=== PATIENT | male | born 1985 | race Caucasian/White ===

== ENCOUNTER 2021-12-12 07:20 | Emergency (ER) | payer MEDICARE, MEDICAID, SELFPAY ==
[2021-12-12 07:40] VITALS: BP 101/63; PULSE 68; RESP 18; TEMP 36.6; O2SAT 98; BMI 19.2
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
--- NOTE | 2021-12-12 09:53 | PC.NURSE ---
nurse to nurse report called to [facility] to notify of pt's return back to facility.
== END 2021-12-12 09:49 | disposition skilled nursing facility (03) ==
PROVIDERS: Emergency Provider Emergency Medicine Emergency Medical Services; PCP Hospitalist
DX: T76.21XA Adult sexual abuse, suspected, initial encounter (principal); Z87.820 Personal history of traumatic brain injury; F25.9 Schizoaffective disorder, unspecified; F03.90 Unspecified dementia, unspecified severity, without behavioral disturbance, psychotic disturbance, mood disturbance, and anxiety
CPT/HCPCS: 99284

== ENCOUNTER 2024-01-23 19:57 | Inpatient (IN) | payer MEDICARE, MEDICAID, SELFPAY ==
--- NOTE | ~2024-01-23 | CT_ITS ---
EXAMINATION: CT HEAD WITHOUT CONTRAST CLINICAL INFORMATION: New onset seizure COMPARISON: None available. TECHNIQUE: Contiguous axial imaging was performed from the skull base to vertex without intravenous administration of contrast. This CT examination was performed using dose optimization techniques as appropriate, variously including the following: *Automated exposure control *Adjustment of mA and/or kV according to patient size (this includes techniques or standardized protocols for targeted exams where dose is matched to indication/reason for exam; i.e. extremities or head) *Use of iterative reconstruction technique DLP: 688 mGy-cm FINDINGS: There is no acute intra-axial, extra-axial bleed, masses or midline shift. There is no acute infarction in evolution. There is no edema. The lateral ventricles are symmetrical in size and configuration without enlargement. Bone windows reveal no calvarial abnormality. There is no scalp soft tissue abnormality. CT/CT head/brain wo IV con IMPRESSION: No acute intracranial process seen.
[2024-01-23 20:08] VITALS: BP 121/69; PULSE 76; O2SAT 94
[2024-01-23 20:14] VITALS: PULSE 61; RESP 16; TEMP 36.6; O2SAT 98; BMI 20.2
--- NOTE | 2024-01-23 20:18 | ECG_ITS ---
Test Reason : SEIZURE Blood Pressure : / mmHG Vent. Rate : 064 BPM Atrial Rate : 064 BPM P-R Int : 164 ms QRS Dur : 102 ms QT Int : 444 ms P-R-T Axes : 021 080 058 degrees QTc Int : 458 ms Normal sinus rhythm Normal ECG No previous ECGs available Referred By: Generic ED Physician Electronically Signed By:BISMARK DEE
--- NOTE | 2024-01-23 21:01 | MHC.EDTECH ---
Patient BIBA,changed into hospital attire,rounds and vitals completed,patient placed on the ase master mechanic,EKG taken per order and sighed by provide. Patient was icont, of a large amount of urine,rocio-care given,[place] cath placed.pt tolerated well. Patient vomited a copious amount of vomit all over self and floor, patient also vomited in bag, 50MLS, Patient was cleaned linen and bed changed RN at bedside with this tech.Labs were drawn and sent to lab.
--- NOTE | 2024-01-23 21:05 | PC.NURSE ---
Patient vomited copious amounts of orangey/food particle vomit. Complete bed change, patient answers yes/no questions appropriately, states he is still nauseous.
[2024-01-23 21:07] LABS: Ammonia 41 umol/L (13-55)
[2024-01-23 21:28] LABS: Troponin-I High Sensitivity < 2.7 ng/L (<3.5-35.0)
[2024-01-23 21:29] LABS: Basophils Percent Auto 0.4 % (0-2); Eosinophils Absolute Auto 0.1 X10*3/uL (0.0-0.4); Eosinophils Percent Auto 2.6 % (0-4); Hematocrit 31.4 % (42.0-52.0); Imm Gran Abs Auto 0.04 X10*3/uL (0.00-0.03); Imm Gran Pct Auto 0.8 % (0.0-0.4); Lymphocytes Absolute Auto 1.6 X10*3/uL (1.2-4.9); Lymphocytes Percent Auto 33.3 % (20-40); MANUAL DIFF FLAG SCAN; Mean Corpuscular Volume 81.3 fL (80.0-98.0); Mean Platelet Volume 10.7 fL (9.4-12.4); Monocytes Absolute Auto 0.3 X10*3/uL (0.1-1.2); Monocytes Percent Auto 5.9 % (2-11); Neutrophils Absolute Auto 2.8 x10*3/uL (2.0-8.3); Platelet Count 146 X10*3/uL (160-400); Red Blood Count 3.86 X10*6/uL (4.60-5.80); Red Cell Distribution Width 12.2 % (11.0-16.0); SCAN SMEAR FLAG 1; White Blood Count 4.9 X10*3/uL (4.8-10.8)
[2024-01-23 21:35] LABS: Potassium 2.8 mmol/L (3.3-5.1)
[2024-01-23 21:36] LABS: Alanine Aminotransferase 37 U/L (0-40); Alkaline Phosphatase 53 U/L (39-117); Anion Gap 14 (12-20); Aspartate Amino Transferase 23 U/L (5-37); Bilirubin Total 0.9 mg/dL (0.0-1.0); Blood Urea Nitrogen 4 mg/dL (9-16); Calcium 8.1 mg/dL (8.4-10.2); Carbon Dioxide 20 mmol/L (22-29); Chloride 84 mmol/L (96-108); Creatinine Clr Calc Pharmacy 142.8; Estimated Glomerular Filt Rate > 60; Glucose Random 135 mg/dL (60-115); Magnesium 1.5 mg/dL (1.6-2.6); Sodium 115 mmol/L (135-145)
--- NOTE | 2024-01-23 21:41 | ED_ITS ---
HPI - Seizure General Chief Complaint: Seizure Stated Complaint: WITNESSED SEIZURE, NO SZ HISTORY Time Seen by Provider: 01/23/24 20:59 Source: EMS and RN notes reviewed Mode of arrival: EMS Limitations: altered mental status History of Present Illness ED Provider: sanchez MENA Narrative: Patient is 38 years old with history of schizophrenia history of hyponatremia comes here for new onset of seizure lasted for 3-5 minutes prior to arrival, do not have any old sodium levels available in the past but patient is supposed to take sodium chloride 1 g tablets 3 times a day no history of seizures in the past no head injury/fall had a superficial tongue bite Seizure History: No Place: Home Related Data Allergies Allergy/AdvReac Type Severity Reaction Status Date / Time haloperidol [Haldol] Allergy Unknown Unknown Verified 01/23/24 20:17 Benadryl Allergy Unknown Unknown Uncoded 01/23/24 20:17 Review of Systems 2 Review of Systems: Yes Unobtainable due to mental status PMFSH Past Medical History Medical History Allergic rhinitis, unspecified Polydipsia Benign prostatic hyperplasia with lower urinary tract symptoms Unspecified urinary incontinence Mild cognitive impairment Cocaine abuse Alcohol dependence, in remission Altered mental status, unspecified Cannabis abuse with intoxication, uncomplicated Myopia of both eyes Anxiety Dementia Schizo affective schizophrenia Social History Social History Household Members: Other Household Members Other:: facility- other patients Housing: Skilled Nursing Do you presently have visiting nurse or other home services: Yes (lives at [facility]) Patient Tobacco Use Status: Never used Tobacco Smoked in Last 30 Days: No Use of substances other than those prescribed or required for medical reasons: Unknown Advance Directives: Yes Advance Directives Information Provided: No Advance Directives on File: No Advance Directives Date on File: 01/23/24 Do you have a plan to hurt others: No Plan Recently lost weight without trying: Unsure Nutrition Risks: No Nutritional Risk Poor oral hygiene: No Physical Exam 2 Vital Signs: Vital Signs: Last Vital Signs Temp 97.1 F 01/24/24 01:00 Pulse 59 01/24/24 01:00 Resp 13 01/24/24 01:00 BP 90/55 L 01/24/24 01:00 Pulse Ox 98 01/24/24 01:00 O2 Del Method Room Air 01/24/24 01:00 BMI result Body Mass Index 20.2 Appearance: Alert. And awake postictal No acute distress. Eyes: PERRLA, No Nystagmus ENT: Pharynx normal. Oral Mucosa moist superficial tongue bite at the tip of the tongue no active bleed Neck: Normal inspection. Neck supple. CVS: Normal heart rate and rhythm. Pulses normal. Respiratory: No respiratory distress. Equal air entry bilateral, no wheezing/rales/rhonchi Abdomen: Soft and nontender. Bowel sounds are present, no mass palpable, no CVA tenderness Skin: Skin warm and dry. Normal skin color. Normal skin turgor. Extremities: No lower extremity edema. No calf tenderness Neuro: Alert and awake postictal. No motor deficit. No sensory deficit.No cerebellar signs , cranial nerves II-XII intact Medications Administered Generic Name Dose Route Start Last Admin Trade Name Freq PRN Reason Stop Dose Admin Enoxaparin Sodium 40 mg 01/23/24 23:00 01/23/24 23:02 Enoxaparin Sodium 40 Mg/0.4 Ml Syringe SUBCUT 40 mg Q24H SARINA Administration Potassium Chloride 10 meq in 100 mls @ 100 mls/hr 01/23/24 21:45 01/24/24 00:38 Potassium Chloride/H20 IV 01/24/24 01:44 Infused Q1H SARINA Infusion Discontinued Medications Generic Name Dose Route Start Last Admin Trade Name Freq PRN Reason Stop Dose Admin Magnesium Sulfate 2 gm in 50 mls @ 150 mls/hr 01/23/24 21:45 01/23/24 22:17 Magnesium Sulfate/H2o IV 01/23/24 22:04 Infused ONCE ONE Infusion Sodium Chloride 100 mls @ 100 mls/hr 01/23/24 22:00 01/24/24 00:38 Sodium Chloride 3 % IV 01/23/24 22:59 Infused ONCE ONE Infusion Medical Decision Making Medical Decision Making [facility] Narrative: Patient has significant hyponatremia hypokalemia and hypomagnesemia hyponatremia likely the cause of the seizure 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 Cuco verduzco advised to start hypertonic saline 3% at 10 mL/hour with slow rise in sodium levels with fluid restrictions will admit to ICU Differential Diagnosis Differential Diagnoses: The differential diagnosis associated with the presentation includes Metabolic etiology/benign seizures /intracranial mass Admission/Observation Consideration of admission/observation: Escalation of care including admission/observation considered Consult Healthcare Provider Management of the patient was discussed with: Supervisor [employer] Lab Data MDM Lab Attestation statement: I reviewed the patient's lab results. 01/23/24 20:45 01/23/24 20:45 Labs: Lab Results 01/23/24 01/23/24 Range/Units 20:45 22:14 WBC 4.9 (4.8-10.8) X10*3/uL RBC 3.86 L (4.60-5.80) X10*6/uL Hgb 10.5 L (14.0-18.0) g/dl Hct 31.4 L (42.0-52.0) % MCV 81.3 (80.0-98.0) fL MCH 27.2 (27.0-33.0) pg MCHC 33.4 (31.0-36.0) g/dl RDW 12.2 (11.0-16.0) % Plt Count 146 L (160-400) X10*3/uL MPV 10.7 (9.4-12.4) fL Immature Gran % (Auto) 0.8 H (0.0-0.4) % Neut % (Auto) 57.0 (45-73) % Lymph % (Auto) 33.3 (20-40) % [place] % (Auto) 5.9 (2-11) % Eos % (Auto) 2.6 (0-4) % Baso % (Auto) 0.4 (0-2) % Lymph # (Auto) 1.6 (1.2-4.9) X10*3/uL [place] # (Auto) 0.3 (0.1-1.2) X10*3/uL Eos # (Auto) 0.1 (0.0-0.4) X10*3/uL Baso # (Auto) 0.0 (0.0-0.2) X10*3/uL Abs Immat Gran (auto) 0.04 H (0.00-0.03) X10*3/uL Absolute Neuts (auto) 2.8 (2.0-8.3) x10*3/uL Absolute Nucleated RBC 0.000 (0.0-0.012) X10*3/uL Nucleated RBC % (auto) 0.0 (0.0-0.2) /100WBC Smear Tech's Comments VERIFIED Sodium 115 L* (135-145) mmol/L Potassium 2.8 L* (3.3-5.1) mmol/L Chloride 84 L (96-108) mmol/L Carbon Dioxide 20 L (22-29) mmol/L Anion Gap 14 (12-20) BUN 4 L (9-16) mg/dL Creatinine 0.61 (0.5-1.4) mg/dL Estim Creat Clear Calc 142.8 Estimated GFR > 60 Random Glucose 135 H (60-115) mg/dL Osmolality 236 L (281-305) mosm/kg Calcium 8.1 L (8.4-10.2) mg/dL Magnesium 1.5 L (1.6-2.6) mg/dL Total Bilirubin 0.9 (0.0-1.0) mg/dL AST 23 (5-37) U/L ALT 37 (0-40) U/L Alkaline Phosphatase 53 (39-117) U/L Ammonia 41 (13-55) umol/L Troponin I High Sens < 2.7 (<3.5-35.0) ng/L Total Protein 6.0 L (6.5-8.0) g/dL Albumin 4.0 (3.5-5.0) g/dL Independent Interpretation I performed an independent interpretation of an: EKG and Plain X-Ray Interpretation: Normal sinus rhythm heart rate 64 beats per minute normal intervals normal axis no acute ST T wave changes no acute ischemia Radiology Impression Discussion of test interpretation with radiology: I have reviewed the radiologist's reading. Radiologist Impression: CT/CT head/brain wo IV con IMPRESSION: No acute intracranial process seen. Discharge Plan Discharge Clinical Impression: New onset seizure, Acute hyponatremia Patient Disposition: Admitted As Inpatient
[2024-01-23 21:47] VITALS: BP 113/81; PULSE 63; RESP 19; TEMP 36.6; O2SAT 100
--- NOTE | 2024-01-23 21:47 | MHC.EDTECH ---
Hourly rounds and vitals completed,patient is icont. at baseline,[place] Cath.placed,waiting for urine sample at this time.
[2024-01-23 21:56] LABS: Hemoglobin 10.5 g/dl (14.0-18.0)
[2024-01-23 21:57] LABS: Mean Corpuscular HGB Conc 33.4 g/dl (31.0-36.0); Mean Corpuscular Hemoglobin 27.2 pg (27.0-33.0)
[2024-01-23] MEDS: Magnesium Sulfate/H2O 2 GM/50 ML PIGGYBACK IV (21:57)
[2024-01-23 21:59] LABS: SLIDE REVIEW VERIFIED
[2024-01-23] MEDS: Potassium Chloride/H20 10 MEQ/100 ML PIGGYBACK 100 MEQ IV ×2 (22:03→23:02)
[2024-01-23 22:11] VITALS: BP 102/67; PULSE 68; RESP 17; O2SAT 100
[2024-01-23] MEDS: Sodium Chloride 3 % 100 ML 10 ML IV (22:15)
--- NOTE | 2024-01-23 22:29 | PC.NURSE ---
ICU provider to bedside, eval patient, requesting to have patient sent over as soon as possible, called RN to RN report, spoke to Ty, all questions answered. Ty to confirm with ICU provider if any additional scans are wanted before patient is brought over.
--- NOTE | 2024-01-23 22:30 | MHC.EDTECH ---
Belongings list completed copy placed in chart
[2024-01-23 22:34] VITALS: BP 112/65; PULSE 73; RESP 18; TEMP 36.5; O2SAT 100
[2024-01-23 22:36] LABS: Osmolality, Serum 236 mosm/kg (281-305)
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
[2024-01-23 22:50] VITALS: BMI 20.3
[2024-01-23] MEDS: Enoxaparin Sodium 40 MG/0.4 ML SYRINGE SUBCUT (23:02)
[2024-01-24] VITALS (24 sets, daily range): BP systolic 89–115; BP diastolic 53–71; PULSE 54–77; RESP 11–20; TEMP 35.8–37.1; O2SAT 94–99
[2024-01-24 01:28] LABS: Appearance Urine Clear; Color Urine Yellow; Glucose Urine UA Negative (Negative); Leukocyte Esterase Urine Negative (Negative); Nitrite Urine Negative (Negative); Specific Gravity - Urine <= 1.005 (1.005-1.025); Urine Blood Negative (Negative); Urine Ketones Negative (Negative); Urine Protein Negative (Neg-Trace)
[2024-01-24] MEDS: Potassium Chloride/H20 10 MEQ/100 ML PIGGYBACK 100 MEQ IV ×2 (01:30→02:33)
[2024-01-24 01:43] LABS: Osmolality Urine 91 mosm/kg (373-1093)
[2024-01-24 02:17] LABS: Glucose, Whole Blood 100 mg/dL (60-115)
[2024-01-24 02:25] LABS: Basophils Percent Auto 0.2 % (0-2); Eosinophils Absolute Auto 0.1 X10*3/uL (0.0-0.4); Eosinophils Percent Auto 0.5 % (0-4); Imm Gran Abs Auto 0.03 X10*3/uL (0.00-0.03); Imm Gran Pct Auto 0.3 % (0.0-0.4); Lymphocytes Absolute Auto 1.6 X10*3/uL (1.2-4.9); MANUAL DIFF FLAG SCAN; Mean Corpuscular Volume 81.3 fL (80.0-98.0); Monocytes Absolute Auto 0.4 X10*3/uL (0.1-1.2); Monocytes Percent Auto 4.5 % (2-11); Neutrophils Absolute Auto 7.6 x10*3/uL (2.0-8.3); Neutrophils Percent Auto 78.5 % (45-73); Platelet Count 197 X10*3/uL (160-400); Red Blood Count 4.55 X10*6/uL (4.60-5.80); Red Cell Distribution Width 12.3 % (11.0-16.0); SCAN SMEAR FLAG 1; White Blood Count 9.7 X10*3/uL (4.8-10.8)
[2024-01-24 02:43] LABS: Anion Gap 13 (12-20); Blood Urea Nitrogen 3 mg/dL (9-16); Calcium 8.9 mg/dL (8.4-10.2); Carbon Dioxide 24 mmol/L (22-29); Chloride 97 mmol/L (96-108); Creatinine Clr Calc Pharmacy 145.8; Estimated Glomerular Filt Rate > 60; Glucose Random 90 mg/dL (60-115); Magnesium 2.2 mg/dL (1.6-2.6); Phosphorus 3.1 mg/dL (2.7-4.5); Potassium 3.9 mmol/L (3.3-5.1); Sodium 130 mmol/L (135-145)
[2024-01-24] MEDS: Dextrose 5 % 1,000 ML 100 ML IVCONT (03:00)
[2024-01-24 03:15] LABS: Hemoglobin 12.4 g/dl (14.0-18.0)
[2024-01-24 03:16] LABS: Mean Corpuscular HGB Conc 33.5 g/dl (31.0-36.0); Mean Corpuscular Hemoglobin 27.3 pg (27.0-33.0)
--- NOTE | 2024-01-24 04:58 | PC.NURSE ---
Addendum entered by Ty Narayanan RN 01/24/24 07:02: After swain insertion, urine output approx. 400 mL/hr, clear dilute urine. DISCHARGE COORDINATOR Ulises notified, DDAVP 2 mcg IVP given per MAR. IV fluids titrated per MAR, labs rechecked per EMR. Neurologically unchanged. Original Note: Patient admitted to ICU from ED at approx. 2245. Upon initial assessment, patient alert but drowsy, arousable to name. Able to follow simple commands, answer yes/no to questions, MORIN spontaneously. SR/SB on tele, SBP over 90, MAP over 65. Saturating well on RA. 3% saline infused per MAR, DISCHARGE COORDINATOR aware repeat Na+ results. D5W IV started, see MAR. Neuro assessment remains unchanged. Patient had large incontinent episode, est. 1L of clear urine. Swain catheter inserted per order. Full bed bath given, complete bed change, skin overall intact warm and dry. Seizure precautions in place, bed locked in lowest position, bed alarm on.
[2024-01-24 05:48] LABS: VBG HCO3 26 mmol/L (22-26); VBG pCO2 36 mmHg; VBG pH 7.47 (7.32-7.43); VBG pO2 80 mmHg
[2024-01-24 05:58] LABS: Venous Blood Gas Refer to POC result
[2024-01-24 06:06] LABS: Alanine Aminotransferase 37 U/L (0-40); Alkaline Phosphatase 59 U/L (39-117); Anion Gap 9 (12-20); Aspartate Amino Transferase 25 U/L (5-37); Bilirubin Total 0.9 mg/dL (0.0-1.0); Blood Urea Nitrogen 3 mg/dL (9-16); Calcium 8.6 mg/dL (8.4-10.2); Carbon Dioxide 25 mmol/L (22-29); Chloride 105 mmol/L (96-108); Creatinine Clr Calc Pharmacy 159.1; Estimated Glomerular Filt Rate > 60; Glucose Random 124 mg/dL (60-115); Magnesium 2.1 mg/dL (1.6-2.6); Phosphorus 2.6 mg/dL (2.7-4.5); Potassium 3.7 mmol/L (3.3-5.1); Sodium 135 mmol/L (135-145); Total Protein 6.2 g/dL (6.5-8.0)
[2024-01-24 06:21] LABS: Thyroid Stimulating Hormone 1.41 uIU/mL (0.32-4.0)
[2024-01-24 06:39] LABS: T4 Thyroxine 7.8 ug/dL (4.5-12.0)
--- NOTE | 2024-01-24 08:24 | PHA.MEDREC ---
Pharmacy Consult ? Medication Reconciliation Pharmacy has completed the medication reconciliation. Utilized list from facility.
[2024-01-24 08:32] LABS: Anion Gap 10 (12-20); Blood Urea Nitrogen 3 mg/dL (9-16); Calcium 8.9 mg/dL (8.4-10.2); Carbon Dioxide 24 mmol/L (22-29); Chloride 102 mmol/L (96-108); Creatinine Clr Calc Pharmacy 145.8; Estimated Glomerular Filt Rate > 60; Glucose Random 154 mg/dL (60-115); Potassium 4.1 mmol/L (3.3-5.1); Sodium 132 mmol/L (135-145)
[2024-01-24] MEDS: 0.9 % Sodium Chloride Flush 3 ML SYRINGE IVFLUSH ×2 (08:32→16:17)
[2024-01-24] MEDS: Dextrose 5 % 1,000 ML 500 ML IVCONT ×2 (08:32→11:19)
--- NOTE | 2024-01-24 10:55 | MHC.CM.PN ---
IMM DELIVERED TO [facility] VIA TELEPHONE. WHITE COPY TO BE MAILED. 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 PT IS ALERT TO SELF ONLY, LETHARGIC. RETURN REFERRAL SENT TO [facility] WITH [facility] WITH REQUEST FOR COPY OF [facility]. DP: PLAN IS FOR PT TO RETURN TO [facility] ON DC. PT WILL NEED BLS TRANSPORT (WILL NEED [place] MEDICAID AUTH PRIOR TO TRANSPORT) CM WILL CONTINUE TO FOLLOW FOR ANY CHANGE TO DC NEEDS/PLAN.
[2024-01-24 11:18] LABS: Anion Gap 8 (12-20); Blood Urea Nitrogen 3 mg/dL (9-16); Carbon Dioxide 25 mmol/L (22-29); Chloride 99 mmol/L (96-108); Creatinine Clr Calc Pharmacy 165.1; Estimated Glomerular Filt Rate > 60; Glucose Random 139 mg/dL (60-115); Potassium 3.8 mmol/L (3.3-5.1); Sodium 128 mmol/L (135-145)
--- NOTE | 2024-01-24 12:15 | PM.CCPN ---
Subjective Subjective Date of Service: 01/24/24 Interval History: 38-year-old gentleman with underlying TBI with dementia, prior cocaine and alcohol abuse, schizophrenia/schizoaffective/bipolar disorders, polydipsia admitted on 01/23/2024 with new onset seizure and new hyponatremia of 115. Initially given 100 cc bolus of 3% saline with rapid rising sodium level up to 130, started on D5 W and desmopressin for polyuria with leveling off sodium level to 128. Mental status remains at baseline with patient is alert and oriented x2. Critical Care Time (minutes): 60 Physical Exam Vital Signs: Vital Signs: Last Vital Signs Temp 98.8 F 01/24/24 12:00 Pulse 64 01/24/24 12:00 Resp 15 01/24/24 12:00 BP 101/68 01/24/24 12:00 Pulse Ox 96 01/24/24 12:00 O2 Del Method Room Air 01/24/24 12:00 BMI result Body Mass Index 20.3 Const: General: no acute distress, alert and awake Eyes: Sclerae: sclerae normal EOM: EOMs intact bilaterally Neck: Neck: Yes no lymphadenopathy, Yes trachea midline and Yes supple Resp: Effort & Inspection: normal respiratory effort and no respiratory distress Auscultation: clear to auscultation bilaterally Cardio: Rate: regular rate Rhythm: regular rhythm Heart sounds: no gallops, no murmurs and no rubs GI: Palpation (GI): Soft to palpation and Other GI palpation findings present ( Nontender) Auscultation: normal bowel sounds Extrem: General: Yes no pedal edema, No clubbing and No cyanosis Objective Data Labs 01/24/24 02:17 01/24/24 10:48 Labs: Laboratory Results - last 24 hr 01/23/24 01/23/24 01/24/24 20:45 22:14 01:00 WBC 4.9 RBC 3.86 L Hgb 10.5 L Hct 31.4 L MCV 81.3 MCH 27.2 MCHC 33.4 RDW 12.2 Plt Count 146 L MPV 10.7 Immature Gran % (Auto) 0.8 H Neut % (Auto) 57.0 Lymph % (Auto) 33.3 [place] % (Auto) 5.9 Eos % (Auto) 2.6 Baso % (Auto) 0.4 Lymph # (Auto) 1.6 [place] # (Auto) 0.3 Eos # (Auto) 0.1 Baso # (Auto) 0.0 Abs Immat Gran (auto) 0.04 H Absolute Neuts (auto) 2.8 Absolute Nucleated RBC 0.000 Nucleated RBC % (auto) 0.0 Smear Tech's Comments VERIFIED VBG pH VBG pCO2 VBG pO2 VBG HCO3 VBG O2 Saturation VBG Base Excess Sodium 115 L* Potassium 2.8 L* Chloride 84 L Carbon Dioxide 20 L Anion Gap 14 BUN 4 L Creatinine 0.61 Estim Creat Clear Calc 142.8 Estimated GFR > 60 POC Glucose Random Glucose 135 H Osmolality 236 L Calcium 8.1 L Phosphorus Magnesium 1.5 L Total Bilirubin 0.9 AST 23 ALT 37 Alkaline Phosphatase 53 Ammonia 41 Troponin I High Sens < 2.7 Total Protein 6.0 L Albumin 4.0 TSH Thyroxine (T4) Urine Color Yellow Urine Appearance Clear Urine pH 7.0 Ur Specific [place] <= 1.005 Urine Protein Negative Urine Glucose (UA) Negative Urine Ketones Negative Urine Blood Negative Urine Nitrite Negative Ur Leukocyte Esterase Negative Urine Osmolality 91 L Ur Random Sodium 20.0 01/24/24 01/24/24 01/24/24 02:13 02:17 05:37 WBC 9.7 RBC 4.55 L Hgb 12.4 L Hct 37.0 L MCV 81.3 MCH 27.3 MCHC 33.5 RDW 12.3 Plt Count 197 D MPV 10.0 Immature Gran % (Auto) 0.3 Neut % (Auto) 78.5 H Lymph % (Auto) 16.0 L [place] % (Auto) 4.5 Eos % (Auto) 0.5 Baso % (Auto) 0.2 Lymph # (Auto) 1.6 [place] # (Auto) 0.4 Eos # (Auto) 0.1 Baso # (Auto) 0.0 Abs Immat Gran (auto) 0.03 Absolute Neuts (auto) 7.6 Absolute Nucleated RBC 0.000 Nucleated RBC % (auto) 0.0 Smear Tech's Comments VBG pH VBG pCO2 VBG pO2 VBG HCO3 VBG O2 Saturation VBG Base Excess Sodium 130 L 135 Potassium 3.9 D Chloride 97 Carbon Dioxide 24 Anion Gap 13 BUN 3 L Creatinine 0.60 Estim Creat Clear Calc 145.8 Estimated GFR > 60 POC Glucose 100 Random Glucose 90 Osmolality Calcium 8.9 D Phosphorus 3.1 Magnesium 2.2 Total Bilirubin AST ALT Alkaline Phosphatase Ammonia Troponin I High Sens Total Protein Albumin TSH Thyroxine (T4) Urine Color Urine Appearance Urine pH Ur Specific [place] Urine Protein Urine Glucose (UA) Urine Ketones Urine Blood Urine Nitrite Ur Leukocyte Esterase Urine Osmolality Ur Random Sodium 01/24/24 01/24/24 01/24/24 05:37 05:37 05:37 WBC RBC Hgb Hct MCV MCH MCHC RDW Plt Count MPV Immature Gran % (Auto) Neut % (Auto) Lymph % (Auto) [place] % (Auto) Eos % (Auto) Baso % (Auto) Lymph # (Auto) [place] # (Auto) Eos # (Auto) Baso # (Auto) Abs Immat Gran (auto) Absolute Neuts (auto) Absolute Nucleated RBC Nucleated RBC % (auto) Smear Tech's Comments VBG pH VBG pCO2 VBG pO2 VBG HCO3 VBG O2 Saturation VBG Base Excess Sodium Cancelled Potassium 3.7 Cancelled Chloride 105 Cancelled Carbon Dioxide 25 Anion Gap BUN Creatinine Estim Creat Clear Calc Estimated GFR POC Glucose Random Glucose Osmolality Calcium Phosphorus Magnesium Total Bilirubin AST ALT Alkaline Phosphatase Ammonia Troponin I High Sens Total Protein Albumin TSH Thyroxine (T4) Urine Color Urine Appearance Urine pH Ur Specific [place] Urine Protein Urine Glucose (UA) Urine Ketones Urine Blood Urine Nitrite Ur Leukocyte Esterase Urine Osmolality Ur Random Sodium 01/24/24 01/24/24 01/24/24 05:37 05:37 05:37 WBC RBC Hgb Hct MCV MCH MCHC RDW Plt Count MPV Immature Gran % (Auto) Neut % (Auto) Lymph % (Auto) [place] % (Auto) Eos % (Auto) Baso % (Auto) Lymph # (Auto) [place] # (Auto) Eos # (Auto) Baso # (Auto) Abs Immat Gran (auto) Absolute Neuts (auto) Absolute Nucleated RBC Nucleated RBC % (auto) Smear Tech's Comments VBG pH VBG pCO2 VBG pO2 VBG HCO3 VBG O2 Saturation VBG Base Excess Sodium Potassium Chloride Carbon Dioxide Cancelled Anion Gap 9 L Cancelled BUN 3 L Cancelled Creatinine 0.55 Estim Creat Clear Calc Estimated GFR POC Glucose Random Glucose Osmolality Calcium Phosphorus Magnesium Total Bilirubin AST ALT Alkaline Phosphatase Ammonia Troponin I High Sens Total Protein Albumin TSH Thyroxine (T4) Urine Color Urine Appearance Urine pH Ur Specific [place] Urine Protein Urine Glucose (UA) Urine Ketones Urine Blood Urine Nitrite Ur Leukocyte Esterase Urine Osmolality Ur Random Sodium 01/24/24 01/24/24 01/24/24 05:37 05:37 05:37 WBC RBC Hgb Hct MCV MCH MCHC RDW Plt Count MPV Immature Gran % (Auto) Neut % (Auto) Lymph % (Auto) [place] % (Auto) Eos % (Auto) Baso % (Auto) Lymph # (Auto) [place] # (Auto) Eos # (Auto) Baso # (Auto) Abs Immat Gran (auto) Absolute Neuts (auto) Absolute Nucleated RBC Nucleated RBC % (auto) Smear Tech's Comments VBG pH VBG pCO2 VBG pO2 VBG HCO3 VBG O2 Saturation VBG Base Excess Sodium Potassium Chloride Carbon Dioxide Anion Gap BUN Creatinine Cancelled Estim Creat Clear Calc 159.1 Cancelled Estimated GFR > 60 Cancelled POC Glucose Random Glucose 124 H Osmolality Calcium Phosphorus Magnesium Total Bilirubin AST ALT Alkaline Phosphatase Ammonia Troponin I High Sens Total Protein Albumin TSH Thyroxine (T4) Urine Color Urine Appearance Urine pH Ur Specific [place] Urine Protein Urine Glucose (UA) Urine Ketones Urine Blood Urine Nitrite Ur Leukocyte Esterase Urine Osmolality Ur Random Sodium 01/24/24 01/24/24 01/24/24 05:37 05:37 05:37 WBC RBC Hgb Hct MCV MCH MCHC RDW Plt Count MPV Immature Gran % (Auto) Neut % (Auto) Lymph % (Auto) [place] % (Auto) Eos % (Auto) Baso % (Auto) Lymph # (Auto) [place] # (Auto) Eos # (Auto) Baso # (Auto) Abs Immat Gran (auto) Absolute Neuts (auto) Absolute Nucleated RBC Nucleated RBC % (auto) Smear Tech's Comments VBG pH VBG pCO2 VBG pO2 VBG HCO3 VBG O2 Saturation VBG Base Excess Sodium Potassium Chloride Carbon Dioxide Anion Gap BUN Creatinine Estim Creat Clear Calc Estimated GFR POC Glucose Random Glucose Cancelled Osmolality Calcium 8.6 Cancelled Phosphorus 2.6 L Cancelled Magnesium 2.1 Total Bilirubin AST ALT Alkaline Phosphatase Ammonia Troponin I High Sens Total Protein Albumin TSH Thyroxine (T4) Urine Color Urine Appearance Urine pH Ur Specific [place] Urine Protein Urine Glucose (UA) Urine Ketones Urine Blood Urine Nitrite Ur Leukocyte Esterase Urine Osmolality Ur Random Sodium 01/24/24 01/24/24 01/24/24 05:37 05:37 05:37 WBC RBC Hgb Hct MCV MCH MCHC RDW Plt Count MPV Immature Gran % (Auto) Neut % (Auto) Lymph % (Auto) [place] % (Auto) Eos % (Auto) Baso % (Auto) Lymph # (Auto) [place] # (Auto) Eos # (Auto) Baso # (Auto) Abs Immat Gran (auto) Absolute Neuts (auto) Absolute Nucleated RBC Nucleated RBC % (auto) Smear Tech's Comments VBG pH VBG pCO2 VBG pO2 VBG HCO3 VBG O2 Saturation VBG Base Excess Sodium Potassium Chloride Carbon Dioxide Anion Gap BUN Creatinine Estim Creat Clear Calc Estimated GFR POC Glucose Random Glucose Osmolality Calcium Phosphorus Magnesium Cancelled Total Bilirubin 0.9 AST 25 ALT 37 Alkaline Phosphatase 59 Ammonia Troponin I High Sens Total Protein 6.2 L Albumin 4.0 TSH 1.41 Cancelled Thyroxine (T4) 7.8 Cancelled Urine Color Urine Appearance Urine pH Ur Specific [place] Urine Protein Urine Glucose (UA) Urine Ketones Urine Blood Urine Nitrite Ur Leukocyte Esterase Urine Osmolality Ur Random Sodium 01/24/24 01/24/24 01/24/24 05:38 08:08 10:48 WBC RBC Hgb Hct MCV MCH MCHC RDW Plt Count MPV Immature Gran % (Auto) Neut % (Auto) Lymph % (Auto) [place] % (Auto) Eos % (Auto) Baso % (Auto) Lymph # (Auto) [place] # (Auto) Eos # (Auto) Baso # (Auto) Abs Immat Gran (auto) Absolute Neuts (auto) Absolute Nucleated RBC Nucleated RBC % (auto) Smear Tech's Comments VBG pH 7.47 H VBG pCO2 36 VBG pO2 80 VBG HCO3 26 VBG O2 Saturation 98.0 VBG Base Excess 3.0 Sodium 132 L 128 L Potassium 4.1 3.8 Chloride 102 99 Carbon Dioxide 24 25 Anion Gap 10 L 8 L BUN 3 L 3 L Creatinine 0.60 0.53 Estim Creat Clear Calc 145.8 165.1 Estimated GFR > 60 > 60 POC Glucose Random Glucose 154 H 139 H Osmolality Calcium 8.9 8.0 L D Phosphorus Magnesium Total Bilirubin AST ALT Alkaline Phosphatase Ammonia Troponin I High Sens Total Protein Albumin TSH Thyroxine (T4) Urine Color Urine Appearance Urine pH Ur Specific [place] Urine Protein Urine Glucose (UA) Urine Ketones Urine Blood Urine Nitrite Ur Leukocyte Esterase Urine Osmolality Ur Random Sodium Progress Note: A&P Assessment and plan (1) Acute hyponatremia: Status: Acute (2) New onset seizure: Status: Acute (3) Acute hypokalemia: Status: Acute Plan Assessment: 38-year-old gentleman with underlying TBI and schizophrenia/schizoaffective disorder admitted with new onset seizure on the background of significant hyponatremia Plan: Neuro: Seizure, so mm, likely secondary to acute hyponatremia. CT head with no acute findings. Mental status remains at baseline. Cardiac: No acute issues. Pulmonary: No acute issues. Renal: Hyponatremia, likely acute, multifactorial with possible etiologies been polydipsia, underlying psychiatric medications, prior TBI. Status post initial bolus of 100 cc of 3% saline with development of polyuria and over correction of sodium up to 135, now status post DDAVP/D5W with sodium level down to 128. Continue to monitor electrolytes. Nephrology service care appreciated. Endo: No acute issues. GI: No acute issues. ID: No acute issues Heme/Onc: No acute issues. Psych: No acute issues. Miscellaneous: No acute issues. Prophylaxis: Pneumatic compression Diet: NPO Critical care time spent: 60 minutes Quality Stroke Does the patient have a stroke diagnosis?: No VTE Prior VTE?: No VTE Risk Level:: Medical - moderate - high VTE Device Contraindication: N/A - Device Ordered VTE Drug Contraindication: N/A - Med Ordered
--- NOTE | 2024-01-24 13:48 | P.CDIM_ITS ---
PROVIDER RESPONSE TEXT: To clarify, the appropriate diagnosis supported by the clinical indicators: Hypomagnesemia: Resolved QUERY TEXT: PHYSICIAN'S DOCUMENTATION REQUEST Date of Query: 01/24/2024 12:34 PM EDT Patient Name: Ranjeet Love Admit Date: 01/24/2024 Dear Moise Wallis MD, A review of the medical record indicates additional documentation may be needed. Please review below and update the documentation accordingly. Clinical Indicators: ED: Patient has significant hyponatremia, hypokalemia and hypomagnesemia. magnesium 1.5 L IV Magnesium sulfate Based on the ED documentation, consistency of a diagnosis within your progress note, if you agree: Hypomagnesemia resolved, possible, suspected etc. Other (explain) Clinically unable to determine (explain) Thank you, Candace Newberry, CCS, CDIS Use of terms such as suspected, likely, concern for, or probable (associated with a specific diagnosi s that is being evaluated, monitored, or treated as if it exists) are acceptable and can be coded in the inpatient se tting, when documented at the time of discharge. Please use your independent medical judgment in providing your response. THIS QUERY IS PART OF THE PERMANENT MEDICAL RECORD
[2024-01-24 15:42] LABS: Anion Gap 12 (12-20); Blood Urea Nitrogen 3 mg/dL (9-16); Calcium 8.7 mg/dL (8.4-10.2); Carbon Dioxide 21 mmol/L (22-29); Chloride 97 mmol/L (96-108); Creatinine Clr Calc Pharmacy 159.1; Estimated Glomerular Filt Rate > 60; Glucose Random 94 mg/dL (60-115); Potassium 3.4 mmol/L (3.3-5.1); Sodium 127 mmol/L (135-145)
--- NOTE | 2024-01-24 19:01 | P.CONNP_ITS ---
History of Present Illness Reason for Consult Consult date: 01/24/24 Reason for consult: Hyponatremia Chief Complaint Chief complaint: Acute hyponatremia History of Present Illness Narrative: 38-year-old male with a history of traumatic brain injury,? schizophrenia, schizoaffective disorder, bipolar, polydipsia, who presented to the emergency department from? [facility] facility? with new seizure activity.? According to the staff patient? developed a new onset seizure lasted 3-5 minutes prior to arrival to emergency department.? Patient has no history of seizures in the past,? no recent injury/fall. Laboratory data was significant for serum sodium of 115,? potassium 2.8,? Mag 1.5,? serum osmolality 236. He was started on 3% saline and was admitted to ICU for management of new onset seizure likely from acute hyponatremia.His serum sodium got corrected fast and was given IV D5W and DDAVP. Nephrology has been consulted to assist in his clinical care during his current hospital stay Review of Systems Review of Systems Yes all other systems are reviewed and are negative PMFSH Past Medical History Medical History Allergic rhinitis, unspecified Polydipsia Benign prostatic hyperplasia with lower urinary tract symptoms Unspecified urinary incontinence Mild cognitive impairment Cocaine abuse Alcohol dependence, in remission Altered mental status, unspecified Cannabis abuse with intoxication, uncomplicated Myopia of both eyes Anxiety Dementia Schizo affective schizophrenia Social History Social History Household Members: Other Household Members Other:: facility- other patients Housing: Senior Living Do you presently have visiting nurse or other home services: Yes (lives at [facility]) Patient Tobacco Use Status: Never used Tobacco Smoked in Last 30 Days: No Use of substances other than those prescribed or required for medical reasons: Unknown Currently Displaying Signs/Symptoms of Drug Intoxication Withdrawal: No Advance Directives: Yes Advance Directives Information Provided: No Advance Directives on File: No Advance Directives Date on File: 01/23/24 Do you have a plan to hurt others: No Plan Recently lost weight without trying: Unsure Nutrition Risks: No Nutritional Risk Poor oral hygiene: No service: No Meds Allergies Allergy/AdvReac Type Severity Reaction Status Date / Time haloperidol [Haldol] Allergy Unknown Unknown Verified 01/23/24 20:17 Benadryl Allergy Unknown Unknown Uncoded 01/23/24 20:17 Active Medications: Current Medications Enoxaparin Sodium (Enoxaparin Sodium 40 Mg/0.4 Ml Syringe) 40 mg SUBCUT Q24H [facility] Last Admin: 01/23/24 23:02 Dose: 40 mg Sodium Chloride (0.9 % Sodium Chloride Flush 3 Ml Syringe) 3 ml IVFLUSH QSHIFT [facility] Last Admin: 01/24/24 16:17 Dose: 3 ml Home Medications ?Medication ?Instructions ?Recorded ?Confirmed ?Last Taken ?Type acetaminophen 325 mg tablet 650 mg PO Q4H PRN Pain 01/24/24 01/24/24 Unknown History aluminum-mag hydroxide-simethicone 30 ml PO Q4H PRN Dyspepsia 01/24/24 01/24/24 Unknown History 200 mg-200 mg-20 mg/5 mL oral susp (Kat-Lanta) bisacodyl 10 mg rectal suppository 10 mg [place] DAILY PRN constipation if 01/24/24 01/24/24 Unknown History senna ineffective calcium carbonate (Tums) 200 mg PO Q4H PRN Indigestion 01/24/24 01/24/24 Unknown History chlorhexidine gluconate 0.12 % 15 ml buccal BID dental care 01/24/24 01/24/24 Unknown History mouthwash clotrimazole 1 % topical cream 1 appl topical BID PRN fungal rash 01/24/24 01/24/24 Unknown History fluoride (sodium) 1.1 % dental 1 appl dental BEDTIME oral care 01/24/24 01/24/24 Unknown History paste (PreviDent 5000 Booster Plus) fluoride (sodium) 1.1 % dental 1 appl dental Q2H PRN oral care 01/24/24 01/24/24 Unknown History paste (PreviDent 5000 Booster Plus) ibuprofen 600 mg tablet 600 mg PO Q6H PRN Pain (Scale 01/24/24 01/24/24 Unknown History Score 4-6) lactulose 10 gram/15 mL oral 90 ml PO QID 01/24/24 01/24/24 Unknown History solution loperamide 2 mg tablet 2 mg PO Q6H PRN diarhea 01/24/24 01/24/24 Unknown History multivitamin 1 tab PO DAILY 01/24/24 01/24/24 Unknown History perphenazine 2 mg tablet 2 mg PO BID 01/24/24 01/24/24 Unknown History perphenazine 4 mg tablet 4 mg PO BID 01/24/24 01/24/24 Unknown History rifaximin 550 mg tablet (Xifaxan) 550 mg PO BID 01/24/24 01/24/24 Unknown History risperidone 0.5 mg tablet 0.5 mg PO BID 01/24/24 01/24/24 Unknown History risperidone 3 mg tablet 3 mg PO BID 01/24/24 01/24/24 Unknown History sennosides 8.6 mg tablet (senna) 8.6 mg PO DAILY PRN Constipation 01/24/24 01/24/24 Unknown History sodium chloride 1,000 mg soluble 1,000 mg PO TID 01/24/24 01/24/24 Unknown History tablet sodium phosphates 19 gram-7 118 ml [place] BEDTIME PRN Constipation 01/24/24 01/24/24 Unknown History gram/118 mL enema (Fleet Enema) solifenacin 5 mg tablet (Vesicare) 5 mg PO DAILY 01/24/24 01/24/24 Unknown History tamsulosin 0.4 mg capsule 0.8 mg PO DAILY 01/24/24 01/24/24 Unknown History trihexyphenidyl 2 mg tablet 1 mg PO BID 01/24/24 01/24/24 Unknown History Physical Exam Vital Signs: Last Vital Signs Temp 98.6 F 01/24/24 15:53 Pulse 58 01/24/24 18:00 Resp 14 01/24/24 18:00 BP 101/53 L 01/24/24 18:00 Pulse Ox 95 01/24/24 18:00 O2 Del Method Room Air 01/24/24 18:00 BMI result Body Mass Index 20.3 Const General: no acute distress Eyes EOM: EOMs intact bilaterally Neck Neck: Yes supple Resp Auscultation: diminished lung sounds Cardio Rate: regular rate GI Palpation (GI): Soft to palpation Neuro General: moves all extremities Results Lab Results 01/24/24 02:17 01/24/24 15:21 Lab results: Chemistry 01/23/24 01/24/24 01/24/24 20:45 02:17 05:37 Sodium 115 L* 130 L 135 Potassium 2.8 L* 3.9 D Carbon Dioxide 20 L 24 BUN 4 L 3 L Creatinine 0.61 0.60 Calcium 8.1 L 8.9 D Phosphorus 3.1 01/24/24 01/24/24 01/24/24 05:37 05:37 05:37 Sodium Cancelled Potassium 3.7 Cancelled Carbon Dioxide 25 Cancelled BUN 3 L Creatinine Calcium Phosphorus 01/24/24 01/24/24 01/24/24 05:37 05:37 05:37 Sodium Potassium Carbon Dioxide BUN Cancelled Creatinine 0.55 Cancelled Calcium 8.6 Cancelled Phosphorus 2.6 L 01/24/24 01/24/24 01/24/24 05:37 08:08 10:48 Sodium 132 L 128 L Potassium 4.1 3.8 Carbon Dioxide 24 25 BUN 3 L 3 L Creatinine 0.60 0.53 Calcium 8.9 8.0 L D Phosphorus Cancelled 01/24/24 15:21 Sodium 127 L Potassium 3.4 Carbon Dioxide 21 L BUN 3 L Creatinine 0.55 Calcium 8.7 D Phosphorus Hematology 01/23/24 01/24/24 20:45 02:17 WBC 4.9 9.7 Hgb 10.5 L 12.4 L Plt Count 146 L 197 D Urinalysis 01/24/24 01:00 Urine Color Yellow Urine Appearance Clear Urine pH 7.0 Ur Specific [place] <= 1.005 Urine Protein Negative Urine Glucose (UA) Negative Urine Ketones Negative Urine Blood Negative Urine Nitrite Negative Ur Leukocyte Esterase Negative Urine Studies 01/24/24 01:00 Urine Osmolality 91 L Assessment and Plan (1) Acute hyponatremia: Status: Acute Plan Euvolemic hyponatremia due to excess ADH Serum cortisol ordered; Na got corrected fast Was given DDAVP and IV D5W- Na dropped Na correction needs to be around 10 MEQ/24 hours May need more IV D5W to bring Na down to 125 Shall closely follow up with ICU team Procedures Date of Service Date of Service: 01/24/24
[2024-01-24 19:43] LABS: Anion Gap 11 (12-20); Blood Urea Nitrogen 4 mg/dL (9-16); Calcium 8.6 mg/dL (8.4-10.2); Carbon Dioxide 21 mmol/L (22-29); Chloride 98 mmol/L (96-108); Creatinine Clr Calc Pharmacy 159.1; Estimated Glomerular Filt Rate > 60; Glucose Random 87 mg/dL (60-115); Potassium 3.3 mmol/L (3.3-5.1); Sodium 127 mmol/L (135-145)
[2024-01-24] MEDS: Potassium Chloride/H20 20 MEQ/100 ML PIGGYBACK 50 MEQ IV ×2 (20:16→22:06)
[2024-01-24] MEDS: Enoxaparin Sodium 40 MG/0.4 ML SYRINGE SUBCUT (22:08)
[2024-01-25] VITALS (15 sets, daily range): BP systolic 92–114; BP diastolic 51–78; PULSE 50–95; RESP 12–18; TEMP 36.2–36.8; O2SAT 95–98; BMI 19.6
[2024-01-25] MEDS: 0.9 % Sodium Chloride Flush 3 ML SYRINGE IVFLUSH ×4 (00:17→20:30)
[2024-01-25 00:39] LABS: Anion Gap 10 (12-20); Blood Urea Nitrogen 3 mg/dL (9-16); Calcium 8.7 mg/dL (8.4-10.2); Carbon Dioxide 22 mmol/L (22-29); Chloride 100 mmol/L (96-108); Creatinine Clr Calc Pharmacy 150.9; Estimated Glomerular Filt Rate > 60; Glucose Random 86 mg/dL (60-115); Potassium 4.2 mmol/L (3.3-5.1); Sodium 128 mmol/L (135-145)
[2024-01-25 05:07] LABS: MANUAL DIFF FLAG NO
[2024-01-25 05:10] LABS: Basophils Percent Auto 0.4 % (0-2); Eosinophils Absolute Auto 0.1 X10*3/uL (0.0-0.4); Eosinophils Percent Auto 2.5 % (0-4); Hematocrit 35.2 % (42.0-52.0); Hemoglobin 13.1 g/dl (14.0-18.0); Imm Gran Abs Auto 0.01 X10*3/uL (0.00-0.03); Imm Gran Pct Auto 0.2 % (0.0-0.4); Lymphocytes Absolute Auto 1.7 X10*3/uL (1.2-4.9); Lymphocytes Percent Auto 29.5 % (20-40); Mean Corpuscular HGB Conc 37.2 g/dl (31.0-36.0); Mean Corpuscular Hemoglobin 30.9 pg (27.0-33.0); Monocytes Absolute Auto 0.4 X10*3/uL (0.1-1.2); Monocytes Percent Auto 6.7 % (2-11); Neutrophils Absolute Auto 3.4 x10*3/uL (2.0-8.3); Neutrophils Percent Auto 60.7 % (45-73); Platelet Count 191 X10*3/uL (160-400); Red Blood Count 4.24 X10*6/uL (4.60-5.80); Red Cell Distribution Width 12.8 % (11.0-16.0); White Blood Count 5.7 X10*3/uL (4.8-10.8)
[2024-01-25 05:25] LABS: Albumin Level 3.8 g/dL (3.5-5.0); Anion Gap 13 (12-20); Blood Urea Nitrogen 4 mg/dL (9-16); Carbon Dioxide 21 mmol/L (22-29); Chloride 99 mmol/L (96-108); Creatinine Clr Calc Pharmacy 148.3; Estimated Glomerular Filt Rate > 60; Glucose Random 85 mg/dL (60-115); Phosphorus 2.5 mg/dL (2.7-4.5); Potassium 3.9 mmol/L (3.3-5.1); Sodium 129 mmol/L (135-145)
[2024-01-25 05:46] LABS: Cortisol Random 7.4 ug/dL
--- NOTE | 2024-01-25 09:39 | MHC.CM.PN ---
EMR REVIEWED AND PER MD ROUNDS, PT REMAINS IN ICU. SODIUM CONTINUES TO BE MONITORED, IMPROVING. [facility] UPDATED VIA [facility]. CM WILL CONTINUE TO FOLLOW FOR ANY CHANGE TO DC NEEDS.
--- NOTE | 2024-01-25 09:59 | P.PNCC_ITS ---
Subjective Subjective Date of Service: 01/25/24 Interval History: 38-year-old gentleman with underlying TBI with dementia, prior cocaine and alcohol abuse, schizophrenia/schizoaffective/bipolar disorders, polydipsia admitted on 01/23/2024 with new onset seizure and new hyponatremia of 115. Initially given 100 cc bolus of 3% saline with rapid rising sodium level up to 130, started on D5 W and desmopressin for polyuria with leveling off sodium level to 128. Mental status remains at baseline with patient is alert and oriented x2. No events overnight. Sodium level slowly improving. No further polyuria. Critical Care Time (minutes): 0 Physical Exam 2 Vital Signs: Vital Signs: Last Vital Signs Temp 98.1 F 01/25/24 09:00 Pulse 63 01/25/24 09:00 Resp 13 01/25/24 09:00 BP 105/51 L 01/25/24 09:00 Pulse Ox 95 01/25/24 09:00 O2 Del Method Room Air 01/25/24 09:00 BMI result Body Mass Index 19.6 Const: General: no acute distress, alert and awake Eyes: Sclerae: sclerae normal EOM: EOMs intact bilaterally Neck: Neck: Yes no lymphadenopathy, Yes trachea midline and Yes supple Resp: Effort & Inspection: normal respiratory effort and no respiratory distress Auscultation: clear to auscultation bilaterally Cardio: Rate: regular rate Rhythm: regular rhythm Heart sounds: no gallops, no murmurs and no rubs GI: Palpation (GI): Soft to palpation and Other GI palpation findings present ( Nontender) Auscultation: normal bowel sounds Extrem: General: Yes no pedal edema, No clubbing and No cyanosis Objective Data Labs 01/25/24 04:23 01/25/24 04:23 Labs: Laboratory Results - last 24 hr 01/24/24 01/24/24 01/24/24 10:48 15:21 19:24 WBC RBC Hgb Hct MCV MCH MCHC RDW Plt Count MPV Immature Gran % (Auto) Neut % (Auto) Lymph % (Auto) [place] % (Auto) Eos % (Auto) Baso % (Auto) Lymph # (Auto) [place] # (Auto) Eos # (Auto) Baso # (Auto) Abs Immat Gran (auto) Absolute Neuts (auto) Absolute Nucleated RBC Nucleated RBC % (auto) Sodium 128 L 127 L 127 L Potassium 3.8 3.4 3.3 Chloride 99 97 98 Carbon Dioxide 25 21 L 21 L Anion Gap 8 L 12 11 L BUN 3 L 3 L 4 L Creatinine 0.53 0.55 0.55 Estim Creat Clear Calc 165.1 159.1 159.1 Estimated GFR > 60 > 60 > 60 Random Glucose 139 H 94 87 Calcium 8.0 L D 8.7 D 8.6 Phosphorus Magnesium Albumin Random Cortisol 01/25/24 01/25/24 00:20 04:23 WBC 5.7 RBC 4.24 L Hgb 13.1 L Hct 35.2 L MCV 83.0 MCH 30.9 MCHC 37.2 H RDW 12.8 Plt Count 191 MPV 11.0 Immature Gran % (Auto) 0.2 Neut % (Auto) 60.7 Lymph % (Auto) 29.5 [place] % (Auto) 6.7 Eos % (Auto) 2.5 Baso % (Auto) 0.4 Lymph # (Auto) 1.7 [place] # (Auto) 0.4 Eos # (Auto) 0.1 Baso # (Auto) 0.0 Abs Immat Gran (auto) 0.01 Absolute Neuts (auto) 3.4 Absolute Nucleated RBC 0.000 Nucleated RBC % (auto) 0.0 Sodium 128 L 129 L Potassium 4.2 D 3.9 Chloride 100 99 Carbon Dioxide 22 21 L Anion Gap 10 L 13 BUN 3 L 4 L Creatinine 0.58 0.59 Estim Creat Clear Calc 150.9 148.3 Estimated GFR > 60 > 60 Random Glucose 86 85 Calcium 8.7 9.0 Phosphorus 2.5 L Magnesium 2.0 Albumin 3.8 Random Cortisol 7.4 Progress Note: A&P Assessment and plan (1) Acute hypokalemia: Status: Acute (2) Acute hyponatremia: Status: Acute (3) New onset seizure: Status: Acute (4) Schizo affective schizophrenia: Status: Acute Plan Assessment: 38-year-old gentleman with underlying TBI and schizophrenia/schizoaffective disorder admitted with new onset seizure on the background of significant hyponatremia Plan: Neuro: Seizure, self-limited, likely secondary to acute hyponatremia. CT head with no acute findings. Mental status remains at baseline. No recurrence. Cardiac: No acute issues. Pulmonary: No acute issues. Renal: Hyponatremia, likely acute, multifactorial with possible etiologies been polydipsia, underlying psychiatric medications, prior TBI. Status post initial bolus of 100 cc of 3% saline with development of polyuria and over correction of sodium up to 135, now status post DDAVP/D5W with sodium level coming down to 127, and now slowly improving. Continue to monitor electrolytes. Nephrology service care appreciated. Endo: No acute issues. GI: No acute issues. ID: No acute issues Heme/Onc: No acute issues. Psych: No acute issues. Underlying schizoaffective schizophrenia bipolar disorder. Restart outpatient psychiatric regimen as tolerated. Miscellaneous: No acute issues. Prophylaxis: Pneumatic compression Diet: Regular, fluid restriction of 1500 cc Quality Stroke Does the patient have a stroke diagnosis?: No VTE Prior VTE?: No VTE Risk Level:: Medical - moderate - high VTE Device Contraindication: N/A - Device Ordered VTE Drug Contraindication: N/A - Med Ordered
[2024-01-25] MEDS: Tolterodine Tartrate LA 4 MG CAP.ER.24H PO (12:49)
[2024-01-25 14:32] LABS: Anion Gap 12 (12-20); Blood Urea Nitrogen 5 mg/dL (9-16); Calcium 9.2 mg/dL (8.4-10.2); Carbon Dioxide 23 mmol/L (22-29); Chloride 102 mmol/L (96-108); Creatinine Clr Calc Pharmacy 136.4; Estimated Glomerular Filt Rate > 60; Glucose Random 120 mg/dL (60-115); Sodium 133 mmol/L (135-145)
--- NOTE | 2024-01-25 18:33 | P.PNNP_ITS ---
Subjective Subjective Date of Service: 01/25/24 Interval history: No events overnight. Sodium level slowly improving. No further polyuria. All recent data reviewed. D/W ICU Attending Physical Exam 2 Vital Signs: Vital Signs: Last Vital Signs Temp 98.2 F 01/25/24 15:47 Pulse 70 01/25/24 15:47 Resp 18 01/25/24 15:47 BP 103/60 01/25/24 15:47 Pulse Ox 98 01/25/24 15:47 O2 Del Method Room Air 01/25/24 15:47 BMI result Body Mass Index 19.6 Const: General: comfortable Eyes: EOM: EOMs intact bilaterally Neck: Neck: Yes supple Resp: Auscultation: diminished lung sounds Cardio: Rate: regular rate GI: Palpation (GI): Soft to palpation Neuro: General: moves all extremities Objective Data Labs 01/25/24 04:23 01/25/24 14:13 Labs: Laboratory Results - last 24 hr 01/24/24 01/25/24 01/25/24 19:24 00:20 04:23 WBC 5.7 RBC 4.24 L Hgb 13.1 L Hct 35.2 L MCV 83.0 MCH 30.9 MCHC 37.2 H RDW 12.8 Plt Count 191 MPV 11.0 Immature Gran % (Auto) 0.2 Neut % (Auto) 60.7 Lymph % (Auto) 29.5 [place] % (Auto) 6.7 Eos % (Auto) 2.5 Baso % (Auto) 0.4 Lymph # (Auto) 1.7 [place] # (Auto) 0.4 Eos # (Auto) 0.1 Baso # (Auto) 0.0 Abs Immat Gran (auto) 0.01 Absolute Neuts (auto) 3.4 Absolute Nucleated RBC 0.000 Nucleated RBC % (auto) 0.0 Sodium 127 L 128 L 129 L Potassium 3.3 4.2 D 3.9 Chloride 98 100 99 Carbon Dioxide 21 L 22 21 L Anion Gap 11 L 10 L 13 BUN 4 L 3 L 4 L Creatinine 0.55 0.58 0.59 Estim Creat Clear Calc 159.1 150.9 148.3 Estimated GFR > 60 > 60 > 60 Random Glucose 87 86 85 Calcium 8.6 8.7 9.0 Phosphorus 2.5 L Magnesium 2.0 Albumin 3.8 Random Cortisol 7.4 01/25/24 14:13 WBC RBC Hgb Hct MCV MCH MCHC RDW Plt Count MPV Immature Gran % (Auto) Neut % (Auto) Lymph % (Auto) [place] % (Auto) Eos % (Auto) Baso % (Auto) Lymph # (Auto) [place] # (Auto) Eos # (Auto) Baso # (Auto) Abs Immat Gran (auto) Absolute Neuts (auto) Absolute Nucleated RBC Nucleated RBC % (auto) Sodium 133 L Potassium 4.0 Chloride 102 Carbon Dioxide 23 Anion Gap 12 BUN 5 L Creatinine 0.62 Estim Creat Clear Calc 136.4 Estimated GFR > 60 Random Glucose 120 H Calcium 9.2 Phosphorus Magnesium Albumin Random Cortisol Procedures Date of Service Date of Service: 01/25/24 Assessment & Plan Assessment and plan (1) Acute hyponatremia: Status: Acute Plan Euvolemic hyponatremia due to excess ADH Serum cortisol reviewed; Na got corrected fast Was given DDAVP and IV D5W- Na dropped Na correcting slowly now Shall closely follow up with ICU team Progress Note: Quality Stroke Does the patient have a stroke diagnosis?: No
[2024-01-25] MEDS: risperiDONE 0.5 MG TABLET PO (20:29)
[2024-01-25] MEDS: rifAXIMin 550 MG TABLET PO (20:29)
[2024-01-25] MEDS: risperiDONE 3 MG TABLET PO (20:29)
[2024-01-25] MEDS: Enoxaparin Sodium 40 MG/0.4 ML SYRINGE SUBCUT (22:38)
[2024-01-26 04:00] VITALS: BP 110/64; PULSE 60; RESP 18; TEMP 36.3; O2SAT 96
[2024-01-26 06:07] LABS: MANUAL DIFF FLAG NO
[2024-01-26 06:10] LABS: Basophils Percent Auto 0.8 % (0-2); Eosinophils Absolute Auto 0.2 X10*3/uL (0.0-0.4); Eosinophils Percent Auto 3.2 % (0-4); Hemoglobin 14.1 g/dl (14.0-18.0); Imm Gran Abs Auto 0.01 X10*3/uL (0.00-0.03); Imm Gran Pct Auto 0.2 % (0.0-0.4); Lymphocytes Absolute Auto 1.7 X10*3/uL (1.2-4.9); Lymphocytes Percent Auto 33.6 % (20-40); Mean Corpuscular HGB Conc 37.1 g/dl (31.0-36.0); Mean Corpuscular Hemoglobin 31.3 pg (27.0-33.0); Mean Corpuscular Volume 84.3 fL (80.0-98.0); Mean Platelet Volume 10.4 fL (9.4-12.4); Monocytes Absolute Auto 0.4 X10*3/uL (0.1-1.2); Monocytes Percent Auto 7.4 % (2-11); Neutrophils Absolute Auto 2.7 x10*3/uL (2.0-8.3); Neutrophils Percent Auto 54.8 % (45-73); Platelet Count 209 X10*3/uL (160-400); Red Blood Count 4.51 X10*6/uL (4.60-5.80); Red Cell Distribution Width 13.1 % (11.0-16.0)
[2024-01-26 06:22] LABS: Albumin Level 4.1 g/dL (3.5-5.0); Anion Gap 12 (12-20); Blood Urea Nitrogen 6 mg/dL (9-16); Calcium 9.7 mg/dL (8.4-10.2); Carbon Dioxide 21 mmol/L (22-29); Chloride 107 mmol/L (96-108); Creatinine Clr Calc Pharmacy 134.2; Estimated Glomerular Filt Rate > 60; Glucose Random 99 mg/dL (60-115); Magnesium 2.2 mg/dL (1.6-2.6); Phosphorus 3.6 mg/dL (2.7-4.5); Potassium 3.9 mmol/L (3.3-5.1); Sodium 136 mmol/L (135-145)
[2024-01-26 07:20] VITALS: BP 99/60; PULSE 51; RESP 17; TEMP 36.6; O2SAT 97
[2024-01-26] MEDS: 0.9 % Sodium Chloride Flush 3 ML SYRINGE IVFLUSH (08:02)
[2024-01-26] MEDS: Multivitamin TABLET 1 TAB PO (08:02)
[2024-01-26] MEDS: rifAXIMin 550 MG TABLET PO (08:02)
[2024-01-26] MEDS: Tamsulosin HCL 0.4 MG CAPSULE 0.8 MG PO (08:02)
[2024-01-26] MEDS: risperiDONE 0.5 MG TABLET PO (08:02)
[2024-01-26] MEDS: risperiDONE 3 MG TABLET PO (08:02)
[2024-01-26] MEDS: Tolterodine Tartrate LA 4 MG CAP.ER.24H PO (08:02)
[2024-01-26 11:41] VITALS: BP 101/67; PULSE 68; RESP 16; TEMP 36.6; O2SAT 99
--- NOTE | 2024-01-26 12:05 | P.DS_ITS ---
DS: Providers Provider Date of Service: 01/26/24 Date of admission: 01/23/24 22:15 Date of discharge: 01/26/24 Primary care physician: Akhil Cintron, DO DS: Diagnosis Discharge Diagnosis (1) Acute hyponatremia: Status: Acute DS: Summary Hospital Course Hospital Course: History of present illness: Date of Service: 01/23/24 Attending physician on admission: Moise Wallis Chief Complaint: Seizure ?The patient is a 38-year-old male with a history of traumatic brain injury,? schizophrenia, schizoaffective disorder, bipolar, benign prostatic hyperplasia, polydipsia, who presented to the emergency department from? [facility] facility? with complaints of new seizure activity.? According to the staff patient? developed a new onset seizure lasted 3-5 minutes prior to arrival to emergency department.? Patient has no history of seizures in the past,? no recent injury/fall.?? ?Vital signs were stable,?Laboratory data was significant for serum sodium of 115,? potassium 2.8,? Mag 1.5,? serum osmolality 236 ?ED course:? ?Patient received 2 g of Mag, 40 mEq calcium, nephrology was consulted, Dr Ventura,? who advised to start 3% saline.? ?Patient will be admitted to ICU for management of new onset seizure likely from acute hyponatremia. Hospital course: ?38-year-old male with a history of traumatic brain injury,? schizophrenia, schizoaffective disorder, bipolar, benign prostatic hyperplasia, polydipsia? admitted to ICU for new onset seizure likely from acute hyponatremia, CT of head was negative, patient treated with hypertonic saline, his sodium got corrected fast therefore required treatment with IV D5W and DDAVP, was subsequently mo nitored closely sodium has now gradually improved to 136, Had No recurrent seizures, was followed closely by Nephrology likely had euvolemic hyponatremia due to excess ADH, had normal cortisol and TSH, nephrology recommend to continue sodium chloride tablets, fluid restriction 1500 mL daily, recommend to check sodium level in 1 week and outpatient follow-up with flight attendant Dr. Norwood. Recommend to continue all other home medications for schizoaffective disorder/bipolar disorder and adjust as per Psychiatry. Time Attestation Discharge Coordination Time (in mins): 40 Quality: Safe Use of Opioids Does Pt have an Active Cancer Diagnosis on the Problem List?: No Quality: Stroke Does the patient have a stroke diagnosis?: No Physical Exam Vital Signs: Vital Signs: Last Vital Signs Temp 97.9 F 01/26/24 11:41 Pulse 68 01/26/24 11:41 Resp 16 01/26/24 11:41 BP 101/67 01/26/24 11:41 Pulse Ox 99 01/26/24 11:41 O2 Del Method Room Air 01/26/24 11:41 BMI result Body Mass Index 19.6 Const: Other: General awake, alert,resting comfortably in no acute distress. Neck no JVD. CVS regular rate rhythm, Respiratory lungs clear to auscultation, no respiratory distress, no wheeze, no rhonchi. Gastrointestinal abdomen soft, non tender, bowel sounds audible, no no guarding , no rigidity. Extremities no edema. Neuro moving all 4 extremity speech clear. Skin no rash DS: Data Data Completed and Pending Labs on day of discharge: Laboratory Results - last 24 hr 01/25/24 01/26/24 14:13 05:56 WBC 5.0 RBC 4.51 L Hgb 14.1 Hct 38.0 L MCV 84.3 MCH 31.3 MCHC 37.1 H RDW 13.1 Plt Count 209 MPV 10.4 Immature Gran % (Auto) 0.2 Neut % (Auto) 54.8 Lymph % (Auto) 33.6 [place] % (Auto) 7.4 Eos % (Auto) 3.2 Baso % (Auto) 0.8 Lymph # (Auto) 1.7 [place] # (Auto) 0.4 Eos # (Auto) 0.2 Baso # (Auto) 0.0 Abs Immat Gran (auto) 0.01 Absolute Neuts (auto) 2.7 Absolute Nucleated RBC 0.000 Nucleated RBC % (auto) 0.0 Sodium 133 L 136 Potassium 4.0 3.9 Chloride 102 107 Carbon Dioxide 23 21 L Anion Gap 12 12 BUN 5 L 6 L Creatinine 0.62 0.63 Estim Creat Clear Calc 136.4 134.2 Estimated GFR > 60 > 60 Random Glucose 120 H 99 Calcium 9.2 9.7 Phosphorus 3.6 Magnesium 2.2 Albumin 4.1 Discharge Plan Discharge Anticipated Discharge Date/Time: 01/26/24 12:03 Patient Disposition: Xfer SNF Discharge Diagnosis: Acute hyponatremia Referrals: Akhil Cintron DO [Primary Care Provider] - 1 Week Discharge Medications: Continued perphenazine 2 mg tablet 2 mg PO BID risperidone 3 mg tablet 3 mg PO BID tamsulosin 0.4 mg capsule 0.8 mg PO DAILY perphenazine 4 mg tablet 4 mg PO BID trihexyphenidyl 2 mg tablet 1 mg PO BID risperidone 0.5 mg tablet 0.5 mg PO BID lactulose 10 gram/15 mL solution 90 ml PO QID Xifaxan 550 mg tablet 550 mg PO BID multivitamin Tablet 1 tab PO DAILY sennosides [senna] 8.6 mg Tablet 8.6 mg PO DAILY PRN (Reason: Constipation) acetaminophen 325 mg Tablet 650 mg PO Q4H PRN (Reason: Pain) loperamide 2 mg Tablet 2 mg PO Q6H PRN (Reason: diarhea) bisacodyl 10 mg Suppository 10 mg OK DAILY PRN (Reason: constipation if senna ineffective) calcium carbonate [Tums] 200 mg calcium (500 mg) Tablet,Chewable 200 mg PO Q4H MDD 15 tablets in 24 hours PRN (Reason: Indigestion) Fleet Enema 19-7 gram/118 mL Enema 118 ml OK BEDTIME PRN (Reason: Constipation) alum-mag hydroxide-simeth [Kat-Lanta] 200-200-20 mg/5 mL Suspension 30 ml PO Q4H PRN (Reason: Dyspepsia) Rx Instructions: administer between meals and at bedtime ibuprofen 600 mg Tablet 600 mg PO Q6H PRN (Reason: Pain (Scale Score 4-6)) clotrimazole 1 % Cream 1 appl TOPICAL BID PRN (Reason: fungal rash) Rx Instructions: cleanse groin area, creases and scrotum with warm soapy water, dry. Apply thin layer of Lotrimin and leave open to air. solifenacin [Vesicare] 5 mg Tablet 5 mg PO DAILY chlorhexidine gluconate 0.12 % Mouthwash 15 ml BUCCAL BID Rx Instructions: Instruct pt to swish around for 30 seconds and spit; do not swallow; do not dilute fluoride (sodium) [PreviDent 5000 Booster Plus] 1.1 % Paste 1 appl DENTAL Q2H PRN (Reason: oral care) fluoride (sodium) [PreviDent 5000 Booster Plus] 1.1 % Paste 1 appl DENTAL BEDTIME sodium chloride 1,000 mg Tablet,Soluble 1,000 mg PO TID Discharge Orders: Discharge Order (Routine); Ordered 01/26/24 Ordered By: Hadley Smith Diet: Advance to usual diet Activity on Discharge: As tolerated Stand Alone Forms: Patient Portal Discharge page Print Language: Honduran Care Plan Goals: Hyponatremia resolved, recommend fluid restriction 1500 mL daily Continue all home medications as before Follow BMP in 1 week Health Concerns: schizoaffective/bipolar disorder continue all home medications Plan of Treatment: Follow-up with primary care physician Assessment: As above
--- NOTE | 2024-01-26 14:43 | MHC.CM.PN ---
PT CLEARED TO DC BACK TO [facility] CM CONTACTED PTS GUARDIAN, CHANDRIKA STACY [phone] AND INFORMED HER OF PENDING DC AUTH FOR TRANSPORT OBTAINED VIA [facility]. AUTH #: [id number] TRANSPORT BOOKED FOR 1600 HOURS
[2024-01-26 15:19] VITALS: BP 97/68; PULSE 82; RESP 18; TEMP 36.7; O2SAT 99
== END 2024-01-26 16:20 | disposition skilled nursing facility (03) | DRG 645 ==
LOC: HO.ED 22:17 → HO.EDOVER 22:21 → HO.ICU 23:25 → HO.S3 01-25 11:31
PROVIDERS: Internal Medicine Nephrology; Internal Medicine Pulmonary Disease; Admitting Provider Registered Nurse Community Health; Emergency Provider Internal Medicine; PCP Hospitalist; Visit Provider Hospitalist
DX: E22.2 Syndrome of inappropriate secretion of antidiuretic hormone (principal); F25.9 Schizoaffective disorder, unspecified; F10.21 Alcohol dependence, in remission; R56.9 Unspecified convulsions; E83.42 Hypomagnesemia; F10.11 Alcohol abuse, in remission; E87.6 Hypokalemia; F14.11 Cocaine abuse, in remission; F03.90 Unspecified dementia, unspecified severity, without behavioral disturbance, psychotic disturbance, mood disturbance, and anxiety; Z87.820 Personal history of traumatic brain injury; Z79.899 Other long term (current) drug therapy
CPT/HCPCS: 36415; 70450; 80048; 80053; 81003; 82040; 82140; 82533; 82803; 82947; 83735; 83930; 83935; 84100; 84300; 84436; 84443; 84484; 85025; 93005; 99285; C1758; J1650; J2597; J3475; J3480; J7131

== ENCOUNTER → 2024-01-23 22:15 | Outpatient (BNV) | payer MEDICARE, MEDICAID, SELFPAY | PROVIDERS: Admitting Provider Registered Nurse Community Health; Emergency Provider Internal Medicine; PCP Hospitalist; Visit Provider Internal Medicine Pulmonary Disease | DX: R56.9 Unspecified convulsions (principal); E87.6 Hypokalemia; E87.1 Hypo-osmolality and hyponatremia | CPT/HCPCS: 99233; 99291 ==

== ENCOUNTER → 2024-01-23 22:15 | Outpatient (BNV) | payer MEDICARE, MEDICAID, SELFPAY | PROVIDERS: Admitting Provider Registered Nurse Community Health; Emergency Provider Internal Medicine; PCP Hospitalist; Visit Provider Internal Medicine Nephrology | DX: E87.1 Hypo-osmolality and hyponatremia (principal) | CPT/HCPCS: 99223; 99232 ==

== ENCOUNTER → 2024-01-23 22:15 | Outpatient (BNV) | payer MEDICARE, MEDICAID, SELFPAY | PROVIDERS: Admitting Provider Registered Nurse Community Health; Emergency Provider Internal Medicine; PCP Hospitalist; Visit Provider Registered Nurse Community Health | DX: E87.1 Hypo-osmolality and hyponatremia (principal); R56.9 Unspecified convulsions | CPT/HCPCS: 99291 ==

== ENCOUNTER → 2024-01-23 22:15 | Outpatient (BNV) | payer MEDICARE, MEDICAID, SELFPAY | PROVIDERS: Admitting Provider Registered Nurse Community Health; Emergency Provider Internal Medicine; PCP Hospitalist; Visit Provider Hospitalist | DX: E87.1 Hypo-osmolality and hyponatremia (principal) | CPT/HCPCS: 99239 ==

== ENCOUNTER 2024-12-02 10:08 | Inpatient (IN) | payer MEDICARE, MEDICAID, SELFPAY ==
[2024-12-02] VITALS (9 sets, daily range): BP systolic 90–113; BP diastolic 51–69; PULSE 68–90; RESP 14–20; TEMP 37.3–38.1; O2SAT 95–100; BMI 21.1
--- NOTE | 2024-12-02 | EEG_ITS ---
This is a 16-channel EEG with an EKG lead. The patient is reported awake during the tracing. Background EEG rhythm is low amplitude fast with no obvious asymmetry or paroxysmal tendency. Photic stimulation does not produce any significant abnormality. Hyperventilation is not performed. Cardiac lead does not reveal any significant abnormality. No definite sharp wave spikes or paroxysmal tendency noted. IMPRESSION: Unremarkable EEG. MD CARINE Crhistine/VALERIO / [id number]
--- NOTE | ~2024-12-02 | XR_ITS ---
EXAMINATION: XR CHEST 1 VIEW HISTORY: fever COMPARISON: There are no prior studies available for comparison. FINDINGS: A single AP portable view of the chest performed at 12:13 PM is submitted. The lungs are expanded and clear. There is no pleural effusion, pneumothorax, or pulmonary vascular congestion. The heart is normal in size. The bones are intact. XR/XR chest 1V IMPRESSION: Clear lungs. Electronically signed by: Jimi Chaidez MD 12/02/2024 12:32 PM EDT
--- NOTE | ~2024-12-02 | CT_ITS ---
EXAMINATION: CT HEAD WITHOUT CONTRAST CLINICAL INFORMATION: Altered mental status, history of remote TBI COMPARISON: None available. TECHNIQUE: Contiguous axial imaging was performed from the skull base to vertex without intravenous administration of contrast. This CT examination was performed using dose optimization techniques as appropriate, variously including the following: *Automated exposure control *Adjustment of mA and/or kV according to patient size (this includes techniques or standardized protocols for targeted exams where dose is matched to indication/reason for exam; i.e. extremities or head) *Use of iterative reconstruction technique FINDINGS: There is no evidence of intracranial hemorrhage or extra-axial fluid collection. There is no mass effect, or edema. No CT evidence of acute territorial infarct. Ventricles, sulci, and cisterns are normal in size and configuration for patient age. No hydrocephalus. No midline shift. Negative hyperdense MCA sign. Negative insular ribbon sign. No significant white matter abnormality. Normal pituitary. Globes and orbital contents image normally. No extracranial soft tissue abnormalities. Moderate mucosal thickening right ethmoid sinuses, and mild circumferential mucosal thickening maxillary sinuses. The remainder of the paranasal sinuses, mastoid air cells, and tympanic cavities are normally aerated. No suspicious bony abnormalities. There are no acute fractures evident. Head CT/CT head/brain wo IV con IMPRESSION: 1. No acute intracranial abnormality. 2. Scattered mild to moderate paranasal sinus disease. Electronically signed by: Adriano Francisco MD 12/02/2024 03:11 PM EDT
--- NOTE | 2024-12-02 10:37 | ED.GENADULT ---
HPI - General Adult General Chief complaint: Altered Mental Status Stated complaint: lethargic, coffee ground emesis, hot to touch Time Seen by Provider: 12/02/24 10:25 History of Present Illness ED Provider: Tawny MENA narrative: The patient is a 39-year-old male with a history of a brain injury with chronic cognitive impairment. He may also has a history of schizophrenia. He has had substance use problems in the past. He now lives chronically at the [facility] at [place]. The patient was sent to the emergency room today after having had a seizure at his long-term yesterday afternoon. According to staff at the long-term the seizure did not last very long but they do not think that he ever had a complete returned to his baseline mental status. Today he seemed less alert than usual and he also had an episode of vomiting. They were concerned that there might be coffee-ground emesis and called an ambulance and he was brought here. The patient was last hospitalized at this hospital in January of 2024. At that time he had had a seizure. This was apparent knee attributed to hyponatremia and at the time of discharge he was not started on antiepileptic medications. The staff at the long-term today confirmed that he is not on antiepileptic medications. As far as they know he has not had any seizures since his last hospitalization until yesterday. There was no report of any significant coughing or other symptoms aside from being less active and alert than usual since his seizure yesterday and the episode of possible coffee-ground emesis today. Related Data Home Medications ?Medication ?Instructions ?Recorded ?Confirmed acetaminophen 325 mg tablet 650 mg PO Q4H PRN Pain 01/24/24 01/24/24 aluminum-mag hydroxide-simethicone 30 ml PO Q4H PRN Dyspepsia 01/24/24 01/24/24 200 mg-200 mg-20 mg/5 mL oral susp (Kat-Lanta) bisacodyl 10 mg rectal suppository 10 mg IN DAILY PRN constipation if 01/24/24 01/24/24 senna ineffective calcium carbonate (Tums) 200 mg PO Q4H PRN Indigestion 01/24/24 01/24/24 chlorhexidine gluconate 0.12 % 15 ml buccal BID dental care 01/24/24 01/24/24 mouthwash clotrimazole 1 % topical cream 1 appl topical BID PRN fungal rash 01/24/24 01/24/24 fluoride (sodium) 1.1 % dental 1 appl dental BEDTIME oral care 01/24/24 01/24/24 paste (PreviDent 5000 Booster Plus) fluoride (sodium) 1.1 % dental 1 appl dental Q2H PRN oral care 01/24/24 01/24/24 paste (PreviDent 5000 Booster Plus) ibuprofen 600 mg tablet 600 mg PO Q6H PRN Pain (Scale 01/24/24 01/24/24 Score 4-6) lactulose 10 gram/15 mL oral 90 ml PO QID 01/24/24 01/24/24 solution loperamide 2 mg tablet 2 mg PO Q6H PRN diarhea 01/24/24 01/24/24 multivitamin 1 tab PO DAILY 01/24/24 01/24/24 perphenazine 2 mg tablet 2 mg PO BID 01/24/24 01/24/24 perphenazine 4 mg tablet 4 mg PO BID 01/24/24 01/24/24 rifaximin 550 mg tablet (Xifaxan) 550 mg PO BID 01/24/24 01/24/24 risperidone 0.5 mg tablet 0.5 mg PO BID 01/24/24 01/24/24 risperidone 3 mg tablet 3 mg PO BID 01/24/24 01/24/24 sennosides 8.6 mg tablet (senna) 8.6 mg PO DAILY PRN Constipation 01/24/24 01/24/24 sodium chloride 1,000 mg soluble 1,000 mg PO TID 01/24/24 01/24/24 tablet sodium phosphates 19 gram-7 118 ml IN BEDTIME PRN Constipation 01/24/24 01/24/24 gram/118 mL enema (Fleet Enema) solifenacin 5 mg tablet (Vesicare) 5 mg PO DAILY 01/24/24 01/24/24 tamsulosin 0.4 mg capsule 0.8 mg PO DAILY 01/24/24 01/24/24 trihexyphenidyl 2 mg tablet 1 mg PO BID 01/24/24 01/24/24 Allergies Allergy/AdvReac Type Severity Reaction Status Date / Time haloperidol (Haldol) Allergy Unknown Unknown Verified 12/02/24 10:25 Benadryl Allergy Unknown Unknown Uncoded 01/23/24 20:17 Review of Systems Review of Systems: Yes Unobtainable due to mental status [facility] Past Medical History Medical History (Updated 12/02/24 @ 18:01 by Severo Hector MD) Allergic rhinitis, unspecified Polydipsia Benign prostatic hyperplasia with lower urinary tract symptoms Unspecified urinary incontinence Mild cognitive impairment Cocaine abuse Alcohol dependence, in remission Altered mental status, unspecified Cannabis abuse with intoxication, uncomplicated Myopia of both eyes Anxiety Dementia Schizo affective schizophrenia Social History Social History Household Members: Other Household Members Other:: facility- other patients Housing: Jail Do you presently have visiting nurse or other home services: Yes (lives at [facility]) Unable to assess alcohol history related to: Unable to respond Patient Tobacco Use Status: Never used Tobacco Use of substances other than those prescribed or required for medical reasons: Unable to respond Advance Directives: Yes Advance Directives on File: Yes Advance Directives Date on File: 01/23/24 Do you have a plan to hurt others: No Plan service: No Physical Exam ED Vital Signs: Vital Signs - 24 hr 12/02/24 10:19 12/02/24 11:11 12/02/24 12:25 Temperature 100.6 F H 99.8 F Pulse Rate 76 73 68 Respiratory Rate 20 17 17 Blood Pressure 102/61 107/55 L Pulse Oximetry 95 97 Oxygen Delivery Method Room Air Room Air 12/02/24 15:42 Temperature Pulse Rate 68 Respiratory Rate 14 Blood Pressure 99/51 L Pulse Oximetry 98 Oxygen Delivery Method Room Air BMI result Body Mass Index 21.1 Const Other: The patient is a very thin, chronically ill-appearing 39-year-old. He was curled up on his side. He was minimally responsive to verbal stimuli. He became temporarily agitated with any significant noxious stimuli. He did not seem in discomfort or short of breath. HENMT Other: Face was symmetrical. Airway was clear. Mucous membranes were moist. Eyes Other: Pupils are round equal, conjunctivae are clear Neck Other: The neck did not seem to exhibit nuchal rigidity. No neck swelling. Resp Effort & Inspection: normal respiratory effort Auscultation: clear to auscultation bilaterally Cardio Rate: regular rate Rhythm: regular rhythm Heart sounds: S1 normal heart sound present and S2 normal heart sound present GI Other: The abdomen is soft and nontender Skin Other: Skin is dry and unremarkable Neuro Other: The patient has a diminished level of alertness. No response to verbal stimuli. He would become agitated occasionally with tactile stimuli. No obvious lateralizing findings. His face is symmetrical. Pupils are round equal. Tone is symmetrical. No focal findings. Extrem Other: Extremities are unremarkable. No peripheral edema. No erythema. Medications Administered Generic Name Dose Route Start Last Admin Trade Name Freq PRN Reason Stop Dose Admin Lactated Ringer's 1,000 mls @ 125 mls/hr 12/02/24 17:15 12/02/24 17:24 Lr IVCONT 125 mls/hr .Q8H SARINA Administration Levetiracetam 500 mg in 100 mls @ 400 mls/hr 12/02/24 18:00 12/02/24 18:11 Keppra IV Infused Q12H SARINA Infusion Discontinued Medications Generic Name Dose Route Start Last Admin Trade Name Freq PRN Reason Stop Dose Admin Ceftriaxone Sodium 2 gm 12/02/24 16:47 12/02/24 17:12 Ceftriaxone Sodium 2 Gm Vial IVPUSH 12/02/24 16:48 2 gm ONCE ONE Administration Diazepam 5 mg 12/02/24 14:19 12/02/24 14:29 Diazepam 10 Mg/2 Ml Cartridge IVPUSH 12/02/24 14:20 5 mg STAT STA Administration Sodium Chloride 1,000 mls @ 999 mls/hr 12/02/24 10:45 12/02/24 12:25 Ns IV 12/02/24 11:45 Infused .Q1H1M SARINA Infusion Acetaminophen 1,000 mg in 100 mls @ 400 mls/hr 12/02/24 11:18 12/02/24 11:48 Ofirmev IV 12/02/24 11:32 Infused ONCE ONE Infusion Sodium Chloride 1,000 mls @ 999 mls/hr 12/02/24 12:45 12/02/24 15:00 Ns IV 12/02/24 13:45 Infused .Q1H1M SARINA Infusion Vancomycin HCl 1,500 mg/ 500 mls @ 333.333 mls/hr 12/02/24 16:47 12/02/24 17:12 Sodium Chloride IV 12/02/24 18:16 333.33 mls/hr ONCE ONE Administration Midazolam HCl 4 mg 12/02/24 16:18 12/02/24 16:28 Midazolam Hcl 2 Mg/2 Ml Vial IVPUSH 12/02/24 16:19 4 mg ONCE ONE Administration Procedures Lumbar Puncture Time Out Performed: Yes Patient Position: right lateral decubitus Skin Prep: Povidone-Iodine 1% Local Anesthetic: lidocaine 1% Amount of anesthesia used (mL): 3 Spinal Needle Gauge: 20G Interspace Used: L4-L5 Opening Pressure (cmH20): 10 Fluid Initially Obtained: clear Complications: none Medical Decision Making Medical Decision Making [facility] Narrative: The patient is a 39-year-old male with a history of chronic schizophrenia who lives at [facility] chronically. He does not have a seizure disorder although he once had a seizure associated with the an episode of hyponatremia. He is not on any antiepileptic medications as far as I can tell. The long-term reports that he had a seizure yesterday. Today he had a diminished level of alertness and may have had an episode of coffee-ground emesis. On exam he is very subdued and simply curled in a ball. He does not respond to verbal stimuli. Apparently he is normally active and walks a great deal in his somewhat compulsive fashion. Therefore his mental status today represents a significant change from his baseline. His rectal temperature was 100.6 degrees. Basic workup was done which showed an unremarkable white count and CRP. Normal lactate. Clear chest x-ray. Normal urinalysis. His abdomen seems clear. The source of his fever is not clear. I ultimately felt a spinal tap was indicated and obtained permission over the telephone from his guardian, Declan Currie, his court-appointed guardian. Spinal tap was done under usual sterile conditions. Opening pressure was 10. Fluid was clear. The patient was given empiric antibiotics of ceftriaxone and vancomycin although he does not seem frankly septic and my suspicion for actual meningitis is very low. He produced a small amount of non melenic stool. My suspicion for GI bleed is low. His BUN is normal. The patient will be admitted for further observation and evaluation. Lab Data 12/02/24 17:06 12/02/24 10:50 Labs: Lab Results 12/02/24 12/02/24 12/02/24 Range/Units 10:50 10:56 13:35 WBC 7.0 (4.8-10.8) X10*3/uL RBC 4.36 L (4.60-5.80) X10*6/uL Hgb 11.8 L (14.0-18.0) g/dl Hct 35.2 L (42.0-52.0) % MCV 80.7 (80.0-98.0) fL MCH 27.1 (27.0-33.0) pg MCHC 33.5 (31.0-36.0) g/dl RDW 12.3 (11.0-16.0) % Plt Count 213 (160-400) X10*3/uL MPV 10.3 (9.4-12.4) fL Immature Gran % (Auto) 0.3 (0.0-0.4) % Neut % (Auto) 85.0 H (45-73) % Lymph % (Auto) 7.2 L (20-40) % Ford % (Auto) 7.4 (2-11) % Eos % (Auto) 0.0 (0-4) % Baso % (Auto) 0.1 (0-2) % Lymph # (Auto) 0.5 L (1.2-4.9) X10*3/uL Ford # (Auto) 0.5 (0.1-1.2) X10*3/uL Eos # (Auto) 0.0 (0.0-0.4) X10*3/uL Baso # (Auto) 0.0 (0.0-0.2) X10*3/uL Abs Immat Gran (auto) 0.02 (0.00-0.03) X10*3/uL Absolute Neuts (auto) 6.0 (2.0-8.3) x10*3/uL Absolute Nucleated RBC 0.000 (0.0-0.012) X10*3/uL Nucleated RBC % (auto) 0.0 (0.0-0.2) /100WBC VBG pH 7.46 H (7.32-7.43) VBG pCO2 37 mmHg VBG pO2 72 mmHg VBG HCO3 26 (22-26) mmol/L VBG O2 Saturation 94.0 % VBG Base Excess 3.2 mmol/L Sodium 130 L (135-145) mmol/L Potassium 3.7 (3.3-5.1) mmol/L Chloride 98 (96-108) mmol/L Carbon Dioxide 23 (22-29) mmol/L Anion Gap 13 (12-20) BUN 5 L (9-16) mg/dL Creatinine 0.49 L (0.5-1.4) mg/dL Estim Creat Clear Calc 172.9 Estimated GFR > 60 Random Glucose 106 (60-115) mg/dL Lactic Acid 0.8 (0.5-2.0) mmol/L Calcium 9.1 D (8.4-10.2) mg/dL Magnesium 1.9 (1.6-2.6) mg/dL Total Bilirubin 0.9 (0.0-1.0) mg/dL Direct Bilirubin 0.3 (0.0-0.5) mg/dL AST 32 (5-37) U/L ALT 29 (0-40) U/L Alkaline Phosphatase 72 (39-117) U/L Ammonia (13-55) umol/L C-Reactive Protein 1.36 H (< or = 0.50) mg/dL Total Protein 6.5 (6.5-8.0) g/dL Albumin 4.4 (3.5-5.0) g/dL Lipase 28 (8-78) U/L Urine Color Yellow Urine Appearance Clear Urine pH 7.0 (5.0-9.0) Ur Specific [place] <= 1.005 (1.005-1.025) Urine Protein Negative (Neg-Trace) mg/dL Urine Glucose (UA) Negative (Negative) mg/dL Urine Ketones Trace (Negative) mg/dL Urine Blood Trace H (Negative) Urine Nitrite Negative (Negative) Ur Leukocyte Esterase Negative (Negative) Urine RBC 3-5 H (0-2) /HPF Urine WBC 0-5 (0-5) /HPF Ur Squamous Epith Cells 0-2 (0-2) /HPF Urine Bacteria None Seen (None Seen) Hyaline Casts 0-2 (0-2) /LPF CSF Tube Number CSF Volume ML CSF Appearance CSF Color CSF WBC MM*3 CSF RBC MM*3 CSF Neutrophils % CSF Lymphocytes % CSF Monocytes % % CSF Other Cells % % CSF Appearance (b) CSF Glucose mg/dL CSF Total Protein (15-45) mg/dL Influenza Type A (PCR) NEGATIVE (Negative) Influenza Type B (PCR) NEGATIVE (Negative) RSV RNA Qual (PCR) NEGATIVE (Negative) SARS-CoV-2 RNA (RT-PCR) NEGATIVE (Negative) 12/02/24 12/02/24 12/02/24 Range/Units 15:55 16:48 16:48 WBC (4.8-10.8) X10*3/uL RBC (4.60-5.80) X10*6/uL Hgb (14.0-18.0) g/dl Hct (42.0-52.0) % MCV (80.0-98.0) fL MCH (27.0-33.0) pg MCHC (31.0-36.0) g/dl RDW (11.0-16.0) % Plt Count (160-400) X10*3/uL MPV (9.4-12.4) fL Immature Gran % (Auto) (0.0-0.4) % Neut % (Auto) (45-73) % Lymph % (Auto) (20-40) % Ford % (Auto) (2-11) % Eos % (Auto) (0-4) % Baso % (Auto) (0-2) % Lymph # (Auto) (1.2-4.9) X10*3/uL Ford # (Auto) (0.1-1.2) X10*3/uL Eos # (Auto) (0.0-0.4) X10*3/uL Baso # (Auto) (0.0-0.2) X10*3/uL Abs Immat Gran (auto) (0.00-0.03) X10*3/uL Absolute Neuts (auto) (2.0-8.3) x10*3/uL Absolute Nucleated RBC (0.0-0.012) X10*3/uL Nucleated RBC % (auto) (0.0-0.2) /100WBC VBG pH (7.32-7.43) VBG pCO2 mmHg VBG pO2 mmHg VBG HCO3 (22-26) mmol/L VBG O2 Saturation % VBG Base Excess mmol/L Sodium (135-145) mmol/L Potassium (3.3-5.1) mmol/L Chloride (96-108) mmol/L Carbon Dioxide (22-29) mmol/L Anion Gap (12-20) BUN (9-16) mg/dL Creatinine (0.5-1.4) mg/dL Estim Creat Clear Calc Estimated GFR Random Glucose (60-115) mg/dL Lactic Acid (0.5-2.0) mmol/L Calcium (8.4-10.2) mg/dL Magnesium (1.6-2.6) mg/dL Total Bilirubin (0.0-1.0) mg/dL Direct Bilirubin (0.0-0.5) mg/dL AST (5-37) U/L ALT (0-40) U/L Alkaline Phosphatase (39-117) U/L Ammonia 29 (13-55) umol/L C-Reactive Protein (< or = 0.50) mg/dL Total Protein (6.5-8.0) g/dL Albumin (3.5-5.0) g/dL Lipase (8-78) U/L Urine Color Urine Appearance Urine pH (5.0-9.0) Ur Specific [place] (1.005-1.025) Urine Protein (Neg-Trace) mg/dL Urine Glucose (UA) (Negative) mg/dL Urine Ketones (Negative) mg/dL Urine Blood (Negative) Urine Nitrite (Negative) Ur Leukocyte Esterase (Negative) Urine RBC (0-2) /HPF Urine WBC (0-5) /HPF Ur Squamous Epith Cells (0-2) /HPF Urine Bacteria (None Seen) Hyaline Casts (0-2) /LPF CSF Tube Number 1 4 CSF Volume 1.0 ML CSF Appearance CLEAR CSF Color COLORLESS CSF WBC 0 MM*3 CSF RBC 0 MM*3 CSF Neutrophils 0 % CSF Lymphocytes 0 % CSF Monocytes % 0 % CSF Other Cells % 0 % CSF Appearance (b) Clear, Colorless CSF Glucose 67 mg/dL CSF Total Protein 29.2 (15-45) mg/dL Influenza Type A (PCR) (Negative) Influenza Type B (PCR) (Negative) RSV RNA Qual (PCR) (Negative) SARS-CoV-2 RNA (RT-PCR) (Negative) 12/02/24 Range/Units 17:06 WBC 5.0 (4.8-10.8) X10*3/uL RBC 3.30 L D (4.60-5.80) X10*6/uL Hgb 10.0 L (14.0-18.0) g/dl Hct 27.0 L D (42.0-52.0) % MCV 81.8 (80.0-98.0) fL MCH 30.3 (27.0-33.0) pg MCHC 37.0 H (31.0-36.0) g/dl RDW 12.5 (11.0-16.0) % Plt Count 160 (160-400) X10*3/uL MPV 11.3 (9.4-12.4) fL Immature Gran % (Auto) (0.0-0.4) % Neut % (Auto) (45-73) % Lymph % (Auto) (20-40) % Ford % (Auto) (2-11) % Eos % (Auto) (0-4) % Baso % (Auto) (0-2) % Lymph # (Auto) (1.2-4.9) X10*3/uL Ford # (Auto) (0.1-1.2) X10*3/uL Eos # (Auto) (0.0-0.4) X10*3/uL Baso # (Auto) (0.0-0.2) X10*3/uL Abs Immat Gran (auto) (0.00-0.03) X10*3/uL Absolute Neuts (auto) (2.0-8.3) x10*3/uL Absolute Nucleated RBC 0.000 (0.0-0.012) X10*3/uL Nucleated RBC % (auto) 0.0 (0.0-0.2) /100WBC VBG pH (7.32-7.43) VBG pCO2 mmHg VBG pO2 mmHg VBG HCO3 (22-26) mmol/L VBG O2 Saturation % VBG Base Excess mmol/L Sodium (135-145) mmol/L Potassium (3.3-5.1) mmol/L Chloride (96-108) mmol/L Carbon Dioxide (22-29) mmol/L Anion Gap (12-20) BUN (9-16) mg/dL Creatinine (0.5-1.4) mg/dL Estim Creat Clear Calc Estimated GFR Random Glucose (60-115) mg/dL Lactic Acid (0.5-2.0) mmol/L Calcium (8.4-10.2) mg/dL Magnesium (1.6-2.6) mg/dL Total Bilirubin (0.0-1.0) mg/dL Direct Bilirubin (0.0-0.5) mg/dL AST (5-37) U/L ALT (0-40) U/L Alkaline Phosphatase (39-117) U/L Ammonia (13-55) umol/L C-Reactive Protein (< or = 0.50) mg/dL Total Protein (6.5-8.0) g/dL Albumin (3.5-5.0) g/dL Lipase (8-78) U/L Urine Color Urine Appearance Urine pH (5.0-9.0) Ur Specific [place] (1.005-1.025) Urine Protein (Neg-Trace) mg/dL Urine Glucose (UA) (Negative) mg/dL Urine Ketones (Negative) mg/dL Urine Blood (Negative) Urine Nitrite (Negative) Ur Leukocyte Esterase (Negative) Urine RBC (0-2) /HPF Urine WBC (0-5) /HPF Ur Squamous Epith Cells (0-2) /HPF Urine Bacteria (None Seen) Hyaline Casts (0-2) /LPF CSF Tube Number CSF Volume ML CSF Appearance CSF Color CSF WBC MM*3 CSF RBC MM*3 CSF Neutrophils % CSF Lymphocytes % CSF Monocytes % % CSF Other Cells % % CSF Appearance (b) CSF Glucose mg/dL CSF Total Protein (15-45) mg/dL Influenza Type A (PCR) (Negative) Influenza Type B (PCR) (Negative) RSV RNA Qual (PCR) (Negative) SARS-CoV-2 RNA (RT-PCR) (Negative) Critical Care Time Critical Care Time Critical Care Time: Yes Total Critical Care Time: 35 Attestation: The patient was critically ill with a high probability of imminent or life-threatening deterioration. ?I spent greater than 30 minutes of discontinuous time evaluating the patient, delivering critical care at the bedside, discussing evaluating data with consultants. ?Critical care time does not include time spent performing separately billable procedures or teaching. ?Time spent performing critical care with 35 minutes. Discharge Plan Discharge Clinical Impression: Altered mental status, Fever, Chronic schizophrenia Patient Disposition: Admitted As Inpatient
--- NOTE | 2024-12-02 10:43 | ECG_ITS ---
Test Reason : AMS Blood Pressure : */* mmHG Vent. Rate : 69 BPM Atrial Rate : 69 BPM P-R Int : 150 ms QRS Dur : 92 ms QT Int : 416 ms P-R-T Axes : 84 86 68 degrees QTcB Int : 445 ms Normal sinus rhythm Possible Left atrial enlargement Left ventricular hypertrophy ( Sokolow-Irvin , Romhilt-Espinal ) Abnormal ECG When compared with ECG of 23-Jan-2024 20:17, No significant change was found Referred By: Severo Hector Electronically Signed By: JESUS CROOK
[2024-12-02 10:58] LABS: Basophils Percent Auto 0.1 % (0-2); Hematocrit 35.2 % (42.0-52.0); Imm Gran Abs Auto 0.02 X10*3/uL (0.00-0.03); Imm Gran Pct Auto 0.3 % (0.0-0.4); Lymphocytes Absolute Auto 0.5 X10*3/uL (1.2-4.9); Lymphocytes Percent Auto 7.2 % (20-40); Mean Corpuscular Volume 80.7 fL (80.0-98.0); Mean Platelet Volume 10.3 fL (9.4-12.4); Monocytes Absolute Auto 0.5 X10*3/uL (0.1-1.2); Monocytes Percent Auto 7.4 % (2-11); Platelet Count 213 X10*3/uL (160-400); Red Blood Count 4.36 X10*6/uL (4.60-5.80); Red Cell Distribution Width 12.3 % (11.0-16.0)
[2024-12-02 10:59] LABS: Venous Blood Gas Refer to POC result
[2024-12-02 11:00] LABS: VBG Base Excess 3.2 mmol/L; VBG HCO3 26 mmol/L (22-26); VBG pCO2 37 mmHg; VBG pH 7.46 (7.32-7.43); VBG pO2 72 mmHg
[2024-12-02] MEDS: 0.9 % Sodium Chloride 1,000 ML 999 ML IV ×2 (11:11→13:05)
[2024-12-02 11:13] LABS: Lactic Acid 0.8 mmol/L (0.5-2.0)
[2024-12-02 11:14] LABS: Alanine Aminotransferase 29 U/L (0-40); Albumin Level 4.4 g/dL (3.5-5.0); Alkaline Phosphatase 72 U/L (39-117); Anion Gap 13 (12-20); Aspartate Amino Transferase 32 U/L (5-37); Bilirubin Direct 0.3 mg/dL (0.0-0.5); Bilirubin Total 0.9 mg/dL (0.0-1.0); Blood Urea Nitrogen 5 mg/dL (9-16); C Reactive Protein 1.36 mg/dL (< or = 0.50); Calcium 9.1 mg/dL (8.4-10.2); Carbon Dioxide 23 mmol/L (22-29); Chloride 98 mmol/L (96-108); Creatinine Clr Calc Pharmacy 172.9; Estimated Glomerular Filt Rate > 60; Glucose Random 106 mg/dL (60-115); Lipase 28 U/L (8-78); Magnesium 1.9 mg/dL (1.6-2.6); Potassium 3.7 mmol/L (3.3-5.1); Sodium 130 mmol/L (135-145); Total Protein 6.5 g/dL (6.5-8.0)
[2024-12-02 11:32] LABS: Hemoglobin 11.8 g/dl (14.0-18.0); Mean Corpuscular HGB Conc 33.5 g/dl (31.0-36.0); Mean Corpuscular Hemoglobin 27.1 pg (27.0-33.0)
[2024-12-02] MEDS: Acetaminophen 1,000 MG/100 ML PIGGYBACK 400 MG IV (11:33)
[2024-12-02 11:35] LABS: Influenza A PCR NEGATIVE (Negative); Influenza B PCR NEGATIVE (Negative); Resp Syncy Virus RNA Qual PCR NEGATIVE (Negative); SARS COV2 PCR INHOUSE NEGATIVE (Negative)
--- OUTSIDE RECORDS SUMMARY | 2024-12-02 12:00 | XMS_ITS | Clinical Summary ---
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 Name Role Phone Unavailable Primary Care Provider Unavailabl e Social History Tobacco Use Types Packs/Day Years Used Date Smoking Tobacco: Never Assessed Sex and Gender Information Value Date Recorded Sex Assigned at Male 04/10/2022 10:33 AM EDT Legal Sex Male 10:33 AM EDT Gender Identity Male 04/10/2022 10:33 AM EDT Sexual Orientation Straight 04/10/2022 10 :33 AM EDT Plan of Treatment Health Maintenance Due Date Last Done Comments Depression Screening 1984 Lipid Panel 1984 Disability Screening 1984 Alcohol/Substance Use Screening 1996 Tobacco Screening 1996 Family Planning (PISQ) 1999 DTaP/Tdap/Td Vaccines (1 - Tdap) 2003 Hepatitis B Vaccines (1 of 3 - 19+ 3-dose series) 2003 COVID-19 Vaccine ( - 2023-2 5 season) 2024 Influenza Vaccine (Season Ended) 2025 Zoster Vaccines (1 of 2) 2034 RSV Patients and Pa tients Aged 60 years or older (1 - 1-dose 75+ series) 2059 HIB Vaccines Aged Out No longer eligi ble based on patient's age to complete this topic HPV Vaccines Aged Out No longer eligi ble based on patient's age to complete this topic Hepatitis A Vaccines Aged Out No long er eligible based on patient's age to complete this topic IPV Vaccines Aged Out No longer eligi ble based on patient's age to complete this topic Meningococcal B Vaccine Aged Out No l onger eligible based on patient's age to complete this topic Meningococcal Vaccine Aged Out No mainor ban eligible based on patient's age to complete this topic Pneumococcal Vaccine: Pediat rics (0 to 5 Years) and At-Risk Patients (6 to 49) Years Aged Out No longer eligible b ased on patient's age to complete this topic RSV under 20 months Aged Out No longe r eligible based on patient's age to complete this topic Rotavirus Vaccines Aged Out No longer eligible based on patient's age to complete this topic
[2024-12-02 14:08] LABS: Appearance Urine Clear; Color Urine Yellow; Glucose Urine UA Negative (Negative); Leukocyte Esterase Urine Negative (Negative); Nitrite Urine Negative (Negative); Specific Gravity - Urine <= 1.005 (1.005-1.025); UMIC TRIGGER UACC YES; Urine Blood Trace (Negative); Urine Ketones Trace mg/dL (Negative); Urine Protein Negative (Neg-Trace)
[2024-12-02 14:11] LABS: Bacteria Urine None Seen (None Seen); Hyaline Casts Urine 0-2 /LPF (0-2); Squamous Epithelial Cell Urine 0-2 /HPF (0-2); WBC Urine 0-5 /HPF (0-5)
[2024-12-02] MEDS: diazePAM 10 MG/2 ML CARTRIDGE 5 MG IVPUSH (14:29)
[2024-12-02 16:05] LABS: Ammonia 29 umol/L (13-55)
[2024-12-02] MEDS: Midazolam HCl 2 MG/2 ML VIAL 4 MG IVPUSH (16:28)
[2024-12-02 17:02] LABS: CSF Appearance Clear, Colorless; CSF Tube # 1
[2024-12-02] MEDS: cefTRIAXone sodium 2 GM VIAL IVPUSH (17:12)
[2024-12-02] MEDS: vancomycin HCL 1,500 MG in 0.9 % Sodium Chloride 500 ML 333.33 MG IV (17:12)
--- NOTE | 2024-12-02 17:14 | PM.IMHP ---
History of Present Illness Date of Service: 12/02/24 Chief Complaint: Altered mental status The patient is a 39-year-old male with a history of traumatic brain injury,? schizophrenia, schizoaffective disorder, bipolar, benign prostatic hyperplasia, polydipsia resident of [facility] for 8 to 9 years under the care of Dr. Nas Cintron. He is brought to the ED to be assess for altered mental status. He reportedly had a seizure yesterday lasting nearly 5 minutes and totday has not been himself, not talking and has felt hot, and had an episode of coffe-ground emesis. No fever reported. Work up here including head CT unremarkable, VBG Ok, CBC and BMP Ok, an LP has been done result pending. He has been given Vancomycin. No apparent sourcee of infection identified. He has has no seizure disorder but he had an episode of seizure last January and required ICU care. Review of Systems Review of Systems: Yes Unobtainable due to mental status [facility] Medical History (Updated 12/02/24 @ 18:01 by Severo Hector MD) Allergic rhinitis, unspecified Polydipsia Benign prostatic hyperplasia with lower urinary tract symptoms Unspecified urinary incontinence Mild cognitive impairment Cocaine abuse Alcohol dependence, in remission Altered mental status, unspecified Cannabis abuse with intoxication, uncomplicated Myopia of both eyes Anxiety Dementia Schizo affective schizophrenia Social History Household Members: Other Household Members Other:: facility- other patients Housing: Intermediate Do you presently have visiting nurse or other home services: Yes (lives at [facility]) Unable to assess alcohol history related to: Unable to respond Patient Tobacco Use Status: Never used Tobacco Use of substances other than those prescribed or required for medical reasons: Unable to respond Advance Directives: Yes Advance Directives on File: Yes Advance Directives Date on File: 01/23/24 Do you have a plan to hurt others: No Plan service: No Meds Allergies Allergy/AdvReac Type Severity Reaction Status Date / Time haloperidol (Haldol) Allergy Unknown Unknown Verified 12/02/24 10:25 Benadryl Allergy Unknown Unknown Uncoded 01/23/24 20:17 Active Medications: Current Medications Vancomycin HCl 1,500 mg/ (Sodium Chloride) 500 mls @ 333.333 mls/hr IV ONCE ONE Stop: 12/02/24 18:16 Last Admin: 12/02/24 17:12 Dose: 333.33 mls/hr Home Medications ?Medication ?Instructions ?Recorded ?Confirmed ?Last Taken ?Type acetaminophen 325 mg tablet 650 mg PO Q4H PRN Fever Or Pain 01/24/24 12/02/24 Unknown History aluminum-mag hydroxide-simethicone 30 ml PO Q4H PRN Dyspepsia 01/24/24 12/02/24 Unknown History 200 mg-200 mg-20 mg/5 mL oral susp (Kat-Lanta) bisacodyl 10 mg rectal suppository 10 mg MN DAILY PRN constipation if 01/24/24 12/02/24 Unknown History senna ineffective chlorhexidine gluconate 0.12 % 15 ml buccal BID dental care 01/24/24 12/02/24 Unknown History mouthwash fluoride (sodium) 1.1 % dental 1 appl dental BEDTIME oral care 01/24/24 12/02/24 Unknown History paste (PreviDent 5000 Booster Plus) fluoride (sodium) 1.1 % dental 1 appl dental Q2H PRN oral care 01/24/24 12/02/24 Unknown History paste (PreviDent 5000 Booster Plus) lactulose 10 gram/15 mL oral 90 ml PO QID 01/24/24 12/02/24 Unknown History solution multivitamin 1 tab PO DAILY 01/24/24 12/02/24 Unknown History perphenazine 2 mg tablet 2 mg PO BID 01/24/24 12/02/24 Unknown History perphenazine 4 mg tablet 4 mg PO BID 01/24/24 12/02/24 Unknown History rifaximin 550 mg tablet (Xifaxan) 550 mg PO BID 01/24/24 12/02/24 Unknown History risperidone 0.5 mg tablet 0.5 mg PO BID 01/24/24 12/02/24 Unknown History risperidone 3 mg tablet 3 mg PO BID 01/24/24 12/02/24 Unknown History sennosides 8.6 mg tablet (senna) 8.6 mg PO DAILY PRN Constipation 01/24/24 12/02/24 Unknown History sodium chloride 1,000 mg soluble 1,000 mg PO TID 01/24/24 12/02/24 Unknown History tablet sodium phosphates 19 gram-7 118 ml MN DAILY PRN Constipation 01/24/24 12/02/24 Unknown History gram/118 mL enema (Fleet Enema) solifenacin 5 mg tablet (Vesicare) 5 mg PO BEDTIME 01/24/24 12/02/24 Unknown History tamsulosin 0.4 mg capsule 0.8 mg PO DAILY 01/24/24 12/02/24 Unknown History trihexyphenidyl 2 mg tablet 1 mg PO BID 01/24/24 12/02/24 Unknown History Physical Exam Vital Signs and Narrative: Vital Signs: Last Vital Signs Temp 99.8 F 12/02/24 12:25 Pulse 68 12/02/24 15:42 Resp 14 12/02/24 15:42 BP 99/51 L 12/02/24 15:42 Pulse Ox 98 12/02/24 15:42 O2 Del Method Room Air 12/02/24 15:42 BMI result Body Mass Index 21.1 General: He is alert, and seems apropriate, but just not talking Resp: CTA bilateral CVS: S1,S2,RRR GI: +BS, NT, no distention Skin: No rash Neuro: motor grossly intact ( moving all extremity, no behavior issues, no apparent focal deficit) Psych: appropriate affect Results Labs 12/02/24 17:06 12/03/24 04:23 Labs: Laboratory Results - last 24 hr 12/02/24 12/02/24 12/02/24 10:50 10:56 13:35 MCV 80.7 MCH 27.1 MCHC 33.5 RDW 12.3 Plt Count 213 MPV 10.3 Immature Gran % (Auto) 0.3 Neut % (Auto) 85.0 H Lymph % (Auto) 7.2 L [place] % (Auto) 7.4 Eos % (Auto) 0.0 Baso % (Auto) 0.1 Lymph # (Auto) 0.5 L [place] # (Auto) 0.5 Eos # (Auto) 0.0 Baso # (Auto) 0.0 Abs Immat Gran (auto) 0.02 Absolute Neuts (auto) 6.0 Absolute Nucleated RBC 0.000 Nucleated RBC % (auto) 0.0 VBG pH 7.46 H VBG pCO2 37 VBG pO2 72 VBG HCO3 26 VBG O2 Saturation 94.0 VBG Base Excess 3.2 Anion Gap 13 Estim Creat Clear Calc 172.9 Estimated GFR > 60 Random Glucose 106 Lactic Acid 0.8 Calcium 9.1 D Magnesium 1.9 Total Bilirubin 0.9 Direct Bilirubin 0.3 AST 32 ALT 29 Alkaline Phosphatase 72 Ammonia C-Reactive Protein 1.36 H Total Protein 6.5 Albumin 4.4 Lipase 28 Urine Color Yellow Urine Appearance Clear Urine pH 7.0 Ur Specific [place] <= 1.005 Urine Protein Negative Urine Glucose (UA) Negative Urine Ketones Trace Urine Blood Trace H Urine Nitrite Negative Ur Leukocyte Esterase Negative Urine RBC 3-5 H Urine WBC 0-5 Ur Squamous Epith Cells 0-2 Urine Bacteria None Seen Hyaline Casts 0-2 CSF Tube Number CSF Appearance (b) Influenza Type A (PCR) NEGATIVE Influenza Type B (PCR) NEGATIVE RSV RNA Qual (PCR) NEGATIVE SARS-CoV-2 RNA (RT-PCR) NEGATIVE 12/02/24 12/02/24 15:55 16:48 MCV MCH MCHC RDW Plt Count MPV Immature Gran % (Auto) Neut % (Auto) Lymph % (Auto) [place] % (Auto) Eos % (Auto) Baso % (Auto) Lymph # (Auto) [place] # (Auto) Eos # (Auto) Baso # (Auto) Abs Immat Gran (auto) Absolute Neuts (auto) Absolute Nucleated RBC Nucleated RBC % (auto) VBG pH VBG pCO2 VBG pO2 VBG HCO3 VBG O2 Saturation VBG Base Excess Anion Gap Estim Creat Clear Calc Estimated GFR Random Glucose Lactic Acid Calcium Magnesium Total Bilirubin Direct Bilirubin AST ALT Alkaline Phosphatase Ammonia 29 C-Reactive Protein Total Protein Albumin Lipase Urine Color Urine Appearance Urine pH Ur Specific [place] Urine Protein Urine Glucose (UA) Urine Ketones Urine Blood Urine Nitrite Ur Leukocyte Esterase Urine RBC Urine WBC Ur Squamous Epith Cells Urine Bacteria Hyaline Casts CSF Tube Number 1 CSF Appearance (b) Clear, Colorless Influenza Type A (PCR) Influenza Type B (PCR) RSV RNA Qual (PCR) SARS-CoV-2 RNA (RT-PCR) Imaging Radiologist's Impressions: Impressions Chest X-Ray 12/02/24 11:12 IMPRESSION: Clear lungs. Electronically signed by: Jimi Chaidez MD 12/02/2024 12:[address] 12/02/24 14:36 IMPRESSION: 1. No acute intracranial abnormality. 2. Scattered mild to moderate paranasal sinus disease. Electronically signed by: Adriano Francisco MD 12/02/2024 03:11 PM EDT RP Assessment and Plan (1) Schizo affective schizophrenia: Status: Acute (2) Altered mental status, unspecified: Status: Acute Plan 39 yo male with schizophrenia here with altered mental status following and seizure, possible prolognged post ictal state, also has had an episode of coffee ground emeris 1 AMS, after seizure ? post ictal state vs encephalopathy. LP done no evidence of meningitis 2. Seizure, no seizure d/o but this is second episode in less than a year, EEG, Neuro consult, Keppra 500 bid 3. Schizophrenia resume meds after responsiblities 4. Coffe ground emesis, H/H seem ok, will monitor closely, IV PPI, GI consult if H/H is droping dvt prophylaxis: compression devicie full code Quality Stroke Does the patient have a stroke diagnosis?: No VTE Prior VTE?: No VTE Risk Level:: Medical - moderate - high VTE Device Contraindication: N/A - Device Ordered VTE Drug Contraindication: N/A - Med Ordered
[2024-12-02] MEDS: Lactated Ringers 1,000 ML 125 ML IVCONT (17:24)
[2024-12-02 17:27] LABS: Glucose CSF 67 mg/dL; Total Protein CSF 29.2 mg/dL (15-45)
[2024-12-02] MEDS: levETIRAcetam in NaCl (iso-os) 500 MG/100 ML PIGGYBACK 400 MG IV (17:56)
[2024-12-02 18:01] LABS: Appearance CSF CLEAR; CSF Tube # 4; Color CSF COLORLESS; Red Blood Cell CSF 0 MM*3; White Blood Cell CSF 0 MM*3
[2024-12-02 18:05] LABS: CSF Monos 0 %; CSF Other Cells % 0 %; Lymphocytes CSF 0 %; Neutrophils CSF 0 %
[2024-12-02 18:17] LABS: Mean Corpuscular Hemoglobin 30.3 pg (27.0-33.0); Mean Corpuscular Volume 81.8 fL (80.0-98.0); Mean Platelet Volume 11.3 fL (9.4-12.4); Red Cell Distribution Width 12.5 % (11.0-16.0)
[2024-12-02 18:19] LABS: Platelet Count 160 X10*3/uL (160-400)
[2024-12-02 18:26] LABS: Cryptococcus neoformans/gattii Not Detected (Not Detect.); Enterovirus Not Detected (Not Detect.); Escherichia coli K1 Not Detected (Not Detect.); Haemophilus influenzae Not Detected (Not Detect.); Herpes simplex virus 1 Not Detected (Not Detect.); Herpes simplex virus 2 Not Detected (Not Detect.); Human herpesvirus 6 Not Detected (Not Detect.); Human parechovirus Not Detected (Not Detect.); Listeria monocytogenes Not Detected (Not Detect.); Neisseria meningitidis Not Detected (Not Detect.); Streptococcus agalactiae Not Detected (Not Detect.); Streptococcus pneumoniae Not Detected (Not Detect.); Varicella zoster virus Not Detected (Not Detect.)
[2024-12-02] MEDS: Pantoprazole Sodium 40 MG/10 ML VIAL IVPUSH (18:48)
[2024-12-02] MEDS: Piperacillin Sodium/Tazobactam 4.5 GM in 0.9 % Sodium Chloride 100 ML IV ×2 (19:00→23:39)
--- NOTE | 2024-12-02 19:40 | PHA.MEDREC ---
Pharmacy Consult ? Medication Reconciliation Pharmacy has completed the medication reconciliation. Utilized med list from [facility].
--- NOTE | 2024-12-02 20:28 | PC.NURSE ---
Pt unable to tolerate PO at this time due to AMS and inability to follow commands. MD aware, care ongoing.
--- NOTE | 2024-12-02 21:26 | PC.NURSE ---
Alexandria HOBBS updated from pt facility.
[2024-12-02] MEDS: 0.9 % Sodium Chloride Flush 3 ML SYRINGE IVFLUSH (23:37)
[2024-12-03] VITALS (8 sets, daily range): BP systolic 109–148; BP diastolic 66–92; PULSE 57–60; RESP 10–16; TEMP 36.8–37.1; O2SAT 98–100; BMI 21.9
[2024-12-03] MEDS: Lactated Ringers 1,000 ML 125 ML IVCONT ×3 (03:43→19:50)
[2024-12-03] MEDS: Piperacillin Sodium/Tazobactam 4.5 GM in 0.9 % Sodium Chloride 100 ML IV ×3 (05:50→17:45)
[2024-12-03] MEDS: Pantoprazole Sodium 40 MG/10 ML VIAL IVPUSH ×2 (05:50→17:45)
[2024-12-03 05:51] LABS: Alanine Aminotransferase 21 U/L (0-40); Albumin Level 3.8 g/dL (3.5-5.0); Alkaline Phosphatase 59 U/L (39-117); Anion Gap 10 (12-20); Aspartate Amino Transferase 26 U/L (5-37); Blood Urea Nitrogen 4 mg/dL (9-16); Calcium 8.6 mg/dL (8.4-10.2); Carbon Dioxide 23 mmol/L (22-29); Chloride 107 mmol/L (96-108); Creatinine Clr Calc Pharmacy 159.8; Estimated Glomerular Filt Rate > 60; Glucose Random 78 mg/dL (60-115); Potassium 3.6 mmol/L (3.3-5.1); Sodium 136 mmol/L (135-145); Total Protein 5.6 g/dL (6.5-8.0)
[2024-12-03] MEDS: levETIRAcetam in NaCl (iso-os) 500 MG/100 ML PIGGYBACK 400 MG IV ×2 (06:00→17:45)
--- NOTE | 2024-12-03 07:22 | PC.NURSE ---
Patient is calm, cooperative. Responds to verbal stimuli and answers yes and no. A+Ox1, seems to have some confusion. Pt opens his eyes when talking to him. RR even and unlabored, denies SOB, CP, headache, or abdominal pain.Lung sounds clear bilat.
--- NOTE | 2024-12-03 08:58 | PC.NURSE ---
MD lomeli texted regarding PO meds and NPO status. Provider states he can have a bed swallow eval and if he does ok he can have PO meds.
--- NOTE | 2024-12-03 09:45 | MHC.CM.PN ---
IMM 12/03/24, Pt. resides LTC at [facility]. His PCP is Dr. Cintron. Guardian is Keshia Currie, and she was sent IMM. DCP for pt. is for him to return to [facility] via S. CM to follow and assist with DC plan.
--- NOTE | 2024-12-03 10:23 | HO.PM.IMPN ---
Subjective Subjective Date of Service: 12/03/24 Interval History: Patient is now awake, and talking, no further seizure reported awaiting Neuro consult, repeat H/H pending but no further episode of coffee ground emesis Physical Exam Vital Signs: Vital Signs: Last Vital Signs Temp 98.7 F 12/03/24 07:19 Pulse 57 12/03/24 07:19 Resp 16 12/03/24 07:19 BP 124/84 12/03/24 07:19 Pulse Ox 99 12/03/24 07:19 O2 Del Method Room Air 12/03/24 07:19 BMI result Body Mass Index 21.1 Const: Other: General awake, alert and oriented to self Neck no JVD. CVS regular rate rhythm, Respiratory lungs clear to auscultation, no respiratory distress, no wheeze, no rhonchi. Gastrointestinal abdomen soft, non tender, bowel sounds audible, no no guarding , no rigidity. Extremities no edema. Neuro intact Skin no rash Objective Data Active Medications Acetaminophen (Acetaminophen 325 Mg Tablet) 650 mg PO Q4H PRN PRN Reason: Fever Or Pain Al Hydroxide/Mg Hydroxide (Magnesium Hydrox/Alum Hydrox 30 Ml Oral.Susp) 30 ml PO Q4H PRN PRN Reason: Dyspepsia Bisacodyl (Bisacodyl 10 Mg Supp.Rect) 10 mg TN DAILY PRN PRN Reason: constipation if senna ineffective Calcium Carbonate (Calcium Carbonate 750 Mg Tab.Chew) 750 mg PO Q4H PRN PRN Reason: Heartburn Chlorhexidine Gluconate (Chlorhexidine Gluc Oral Rinse 15 Ml Mouthwash) 15 ml BUCCAL BID [facility] Last Admin: 12/03/24 08:52 Dose: Not Given Documented By: KIMMIE Non-Admin Reason: NPO Lactated Ringer's (Lr) 1,000 mls @ 125 mls/hr IVCONT .Q8H [facility] Last Admin: 12/03/24 03:43 Dose: 125 mls/hr Documented By: LEIGHANN Levetiracetam (Keppra) 500 mg in 100 mls @ 400 mls/hr IV Q12H [facility] Last Infusion: 12/03/24 06:56 Dose: Infused Documented By: LEIGHANN Piperacillin Sod/Tazobactam (Sod 4.5 gm/ Sodium Chloride) 100 mls @ 200 mls/hr IV Q6H [facility] Last Infusion: 12/03/24 06:50 Dose: Infused Documented By: KIMMIE Lactulose (Lactulose 20 Gm/30 Ml Solution) 60 gm PO QID [facility] Last Admin: 12/03/24 08:53 Dose: Not Given Documented By: KIMMIE Non-Admin Reason: NPO Magnesium Hydroxide (Milk Of Magnesia 30 Ml Oral.Susp) 30 ml PO DAILY PRN PRN Reason: Constipation Melatonin (Melatonin 3 Mg Tablet) 6 mg PO BEDTIME PRN PRN Reason: Insomnia Multivitamins/Vitamin C (Multivitamin Tablet) 1 tab PO DAILY [facility] Last Admin: 12/03/24 08:54 Dose: Not Given Documented By: KIMMIE Non-Admin Reason: NPO Ondansetron HCl (Ondansetron Hcl 4 Mg/2 Ml Vial) 4 mg IVPUSH Q8H PRN PRN Reason: Nausea and Vomiting Pantoprazole Sodium (Pantoprazole Sodium 40 Mg/10 Ml Vial) 40 mg IVPUSH BID@0630,1630 [facility] Last Admin: 12/03/24 05:50 Dose: 40 mg Documented By: LEIGHANN Perphenazine (Perphenazine 2 Mg Tablet) 2 mg PO BID [facility] Last Admin: 12/03/24 08:53 Dose: Not Given Documented By: KIMMIE Non-Admin Reason: NPO Perphenazine (Perphenazine 4 Mg Tablet) 4 mg PO BID [facility] Last Admin: 12/03/24 08:53 Dose: Not Given Documented By: KIMMIE Non-Admin Reason: NPO Rifaximin (Rifaximin 550 Mg Tablet) 550 mg PO BID [facility] Last Admin: 12/03/24 08:53 Dose: Not Given Documented By: KIMMIE Non-Admin Reason: NPO Risperidone (Risperidone 0.5 Mg Tablet) 0.5 mg PO BID [facility] Last Admin: 12/03/24 08:53 Dose: Not Given Documented By: KIMMIE Non-Admin Reason: NPO Risperidone (Risperidone 3 Mg Tablet) 3 mg PO BID [facility] Last Admin: 12/03/24 08:53 Dose: Not Given Documented By: KIMMIE Non-Admin Reason: NPO Senna (Sennosides 8.6 Mg Tablet) 8.6 mg PO DAILY PRN PRN Reason: Constipation Sodium Biphosphate/Sodium Phosphate (Sodium Phosphate,[place]-Dibasic 133 Ml Enema) 118 ml TN DAILY PRN PRN Reason: Constipation Sodium Chloride (0.9 % Sodium Chloride Flush 3 Ml Syringe) 3 ml IVFLUSH QSHIFT [facility] Last Admin: 12/03/24 08:54 Dose: Not Given Documented By: KIMMIE Non-Admin Reason: IV Running Sodium Chloride (Sodium Chloride Tab 1 Gm Tablet) 1 gm PO TID [facility] Last Admin: 12/03/24 08:53 Dose: Not Given Documented By: KIMMIE Non-Admin Reason: NPO Tamsulosin HCl (Tamsulosin Hcl 0.4 Mg Capsule) 0.8 mg PO DAILY [facility] Last Admin: 12/03/24 08:54 Dose: Not Given Documented By: KIMMIE Non-Admin Reason: NPO Tolterodine Tartrate (Tolterodine Tartrate La 4 Mg Cap.Er.24h) 4 mg PO BEDTIME [facility] Last Admin: 12/02/24 20:28 Dose: Not Given Documented By: ALEXANDREA Non-Admin Reason: Patient Condition Contraindication Trihexyphenidyl HCl (Trihexyphenidyl Hcl 2 Mg Tablet) 1 mg PO BID [facility] Last Admin: 12/03/24 08:53 Dose: Not Given Documented By: KIMMIE Non-Admin Reason: NPO Labs 12/02/24 17:06 12/03/24 04:23 Labs: Laboratory Results - last 24 hr 12/02/24 12/02/24 12/02/24 10:50 10:56 13:35 MCV 80.7 MCH 27.1 MCHC 33.5 RDW 12.3 Plt Count 213 MPV 10.3 Immature Gran % (Auto) 0.3 Neut % (Auto) 85.0 H Lymph % (Auto) 7.2 L [place] % (Auto) 7.4 Eos % (Auto) 0.0 Baso % (Auto) 0.1 Lymph # (Auto) 0.5 L [place] # (Auto) 0.5 Eos # (Auto) 0.0 Baso # (Auto) 0.0 Abs Immat Gran (auto) 0.02 Absolute Neuts (auto) 6.0 Absolute Nucleated RBC 0.000 Nucleated RBC % (auto) 0.0 VBG pH 7.46 H VBG pCO2 37 VBG pO2 72 VBG HCO3 26 VBG O2 Saturation 94.0 VBG Base Excess 3.2 Anion Gap 13 Estim Creat Clear Calc 172.9 Estimated GFR > 60 Random Glucose 106 Lactic Acid 0.8 Calcium 9.1 D Magnesium 1.9 Total Bilirubin 0.9 Direct Bilirubin 0.3 AST 32 ALT 29 Alkaline Phosphatase 72 Ammonia C-Reactive Protein 1.36 H Total Protein 6.5 Albumin 4.4 Lipase 28 Urine Color Yellow Urine Appearance Clear Urine pH 7.0 Ur Specific [place] <= 1.005 Urine Protein Negative Urine Glucose (UA) Negative Urine Ketones Trace Urine Blood Trace H Urine Nitrite Negative Ur Leukocyte Esterase Negative Urine RBC 3-5 H Urine WBC 0-5 Ur Squamous Epith Cells 0-2 Urine Bacteria None Seen Hyaline Casts 0-2 CSF Tube Number CSF Volume CSF Appearance CSF Color CSF WBC CSF RBC CSF Neutrophils CSF Lymphocytes CSF Monocytes % CSF Other Cells % CSF Appearance (b) CSF Glucose CSF Total Protein CSF C.neoform/gat PCR CSF CMV DNA (PCR) CSF Enterovirus (PCR) CSF E. coli K1 (PCR) CSF H. influenzae (PCR) CSF HSV I (PCR) CSF HSV II (PCR) CSF HHV 6 (PCR) CSF L.monocytogenes PCR CSF N. meningitidis PCR CSF Parechovirus (PCR) CSF S. agalactiae (PCR) CSF S. pneumoniae (PCR) CSF VZV (PCR) Influenza Type A (PCR) NEGATIVE Influenza Type B (PCR) NEGATIVE RSV RNA Qual (PCR) NEGATIVE SARS-CoV-2 RNA (RT-PCR) NEGATIVE 12/02/24 12/02/24 12/02/24 15:55 16:48 16:48 MCV MCH MCHC RDW Plt Count MPV Immature Gran % (Auto) Neut % (Auto) Lymph % (Auto) [place] % (Auto) Eos % (Auto) Baso % (Auto) Lymph # (Auto) [place] # (Auto) Eos # (Auto) Baso # (Auto) Abs Immat Gran (auto) Absolute Neuts (auto) Absolute Nucleated RBC Nucleated RBC % (auto) VBG pH VBG pCO2 VBG pO2 VBG HCO3 VBG O2 Saturation VBG Base Excess Anion Gap Estim Creat Clear Calc Estimated GFR Random Glucose Lactic Acid Calcium Magnesium Total Bilirubin Direct Bilirubin AST ALT Alkaline Phosphatase Ammonia 29 C-Reactive Protein Total Protein Albumin Lipase Urine Color Urine Appearance Urine pH Ur Specific [place] Urine Protein Urine Glucose (UA) Urine Ketones Urine Blood Urine Nitrite Ur Leukocyte Esterase Urine RBC Urine WBC Ur Squamous Epith Cells Urine Bacteria Hyaline Casts CSF Tube Number 1 4 CSF Volume 1.0 CSF Appearance CLEAR CSF Color COLORLESS CSF WBC 0 CSF RBC 0 CSF Neutrophils 0 CSF Lymphocytes 0 CSF Monocytes % 0 CSF Other Cells % 0 CSF Appearance (b) Clear, Colorless CSF Glucose 67 CSF Total Protein 29.2 CSF C.neoform/gat PCR Not Detected CSF CMV DNA (PCR) Not Detected CSF Enterovirus (PCR) Not Detected CSF E. coli K1 (PCR) Not Detected CSF H. influenzae (PCR) Not Detected CSF HSV I (PCR) Not Detected CSF HSV II (PCR) Not Detected CSF HHV 6 (PCR) Not Detected CSF L.monocytogenes PCR Not Detected CSF N. meningitidis PCR Not Detected CSF Parechovirus (PCR) Not Detected CSF S. agalactiae (PCR) Not Detected CSF S. pneumoniae (PCR) Not Detected CSF VZV (PCR) Not Detected Influenza Type A (PCR) Influenza Type B (PCR) RSV RNA Qual (PCR) SARS-CoV-2 RNA (RT-PCR) 12/02/24 12/03/24 17:06 04:23 MCV 81.8 MCH 30.3 MCHC 37.0 H RDW 12.5 Plt Count 160 MPV 11.3 Immature Gran % (Auto) Neut % (Auto) Lymph % (Auto) [place] % (Auto) Eos % (Auto) Baso % (Auto) Lymph # (Auto) [place] # (Auto) Eos # (Auto) Baso # (Auto) Abs Immat Gran (auto) Absolute Neuts (auto) Absolute Nucleated RBC 0.000 Nucleated RBC % (auto) 0.0 VBG pH VBG pCO2 VBG pO2 VBG HCO3 VBG O2 Saturation VBG Base Excess Anion Gap 10 L Estim Creat Clear Calc 159.8 Estimated GFR > 60 Random Glucose 78 Lactic Acid Calcium 8.6 Magnesium Total Bilirubin 1.0 Direct Bilirubin AST 26 ALT 21 Alkaline Phosphatase 59 Ammonia C-Reactive Protein Total Protein 5.6 L Albumin 3.8 Lipase Urine Color Urine Appearance Urine pH Ur Specific [place] Urine Protein Urine Glucose (UA) Urine Ketones Urine Blood Urine Nitrite Ur Leukocyte Esterase Urine RBC Urine WBC Ur Squamous Epith Cells Urine Bacteria Hyaline Casts CSF Tube Number CSF Volume CSF Appearance CSF Color CSF WBC CSF RBC CSF Neutrophils CSF Lymphocytes CSF Monocytes % CSF Other Cells % CSF Appearance (b) CSF Glucose CSF Total Protein CSF C.neoform/gat PCR CSF CMV DNA (PCR) CSF Enterovirus (PCR) CSF E. coli K1 (PCR) CSF H. influenzae (PCR) CSF HSV I (PCR) CSF HSV II (PCR) CSF HHV 6 (PCR) CSF L.monocytogenes PCR CSF N. meningitidis PCR CSF Parechovirus (PCR) CSF S. agalactiae (PCR) CSF S. pneumoniae (PCR) CSF VZV (PCR) Influenza Type A (PCR) Influenza Type B (PCR) RSV RNA Qual (PCR) SARS-CoV-2 RNA (RT-PCR) Microbiology Microbiology Results: Microbiology 12/02/24 16:48 Gram Stain - Final Cerebrospinal Fluid Fluid Description - Final CSF Culture - Preliminary No growth to date. Assessment and Plan (1) Acute blood loss anemia: Status: Acute (2) Altered mental status, unspecified: Status: Acute Plan 39 yo male with schizophrenia here with altered mental status following and seizure, possible prolognged post ictal state, also has had an episode of coffee ground emeris AMS, after seizure ? post ictal state vs encephalopathy. LP done no evidence of meningitis, seems to be back to baseline Seizure, no seizure d/o but this is second episode in less than a year, EEG, Neuro consult, Keppra 500 bid for now Schizophrenia resume meds after responsiblities Coffe ground emesis, H/H seems to have dropped, acute blood loss anemia, recheck H/H, continue IV PPI and GI eval dvt prophylaxis: compression devicie full code Dispo: pending gi and neuro consult Quality Stroke Does the patient have a stroke diagnosis?: No VTE Prior VTE?: No VTE Risk Level:: Medical - moderate - high VTE Device Contraindication: N/A - Device Ordered VTE Drug Contraindication: N/A - Med Ordered
--- NOTE | 2024-12-03 10:56 | PC.NURSE ---
LR continuing to run at 125/hr, changed LR bag and tried to scan in via MAR, MAR was showing it was due at 1700 but it is continuous.
--- NOTE | 2024-12-03 10:59 | PC.NURSE ---
Attempted swallow eval for patient, pt was unable to drink spoon of water without coughing, attempted x 2. Pt was able to eat a bit of apple sauce without coughing. Provider aware.
[2024-12-03 11:04] LABS: Hematocrit 36.3 % (42.0-52.0); Hemoglobin 13.4 g/dl (14.0-18.0); Mean Corpuscular HGB Conc 36.9 g/dl (31.0-36.0); Mean Platelet Volume 10.4 fL (9.4-12.4); Platelet Count 156 X10*3/uL (160-400); Red Blood Count 4.32 X10*6/uL (4.60-5.80); White Blood Count 6.4 X10*3/uL (4.8-10.8)
--- NOTE | 2024-12-03 14:03 | PC.NURSE ---
sarah from speech at bedside for evaluation
[2024-12-03] MEDS: Lactulose 20 GM/30 ML SOLUTION 60 GM PO ×3 (14:23→19:37)
--- NOTE | 2024-12-03 14:33 | MHC.SL.SWA ---
Speech Pathologist Impression: Oropharyngeal swallow WFL for thins/chopped solids. GI consult pending. Risk of Aspiration Due to: GI involvement Dysphasia Diet Status: Liquid Consistency and Strategies for Safe Swallow: Liquid Intake Recommendation: Thin Liquid Intake Strategies: Solid Food Consistency: Dietary Recommendations: Chopped/Advanced (NDD3) Additional Modifications to Solid Foods: Oral Medication Intake: Whole with Liquid Please contact the pharmacy regarding appropriate crushable or liquid drug formulations that are available whenever modified delivery is recommended. Compensatory Strategies and Precautions to be Taken for Safe Swallow: Supervision While Eating and Drinking for Safe Swallow: Total Assistance (1:1) Foods to Avoid: Swallowing Recommended Treatments: Recommendation for Speech: Further Testing Needed Comment: Pt minimally communicative but followed simple cues by RN. RN noted pt mentation is like that of a child. Pt able to elicit voice with clear quality. Pt willing to participate in brief clinical bedside swallow evaluation; denied hx of dysphagia. Oropharyngeal coordination WNL. No overt s/s of aspiration across consecutive swallows of thins by straw sips or tsps of chopped solids (jello). No other trials presented as pt refused and given question of esophageal involvement. GI consult pending. Recommend NDD3 with thins, until pt seen by GI. Further recommendations pending. MONUMENT STONECUTTER will followup. Frequency/Duration: Daily as indicated Date Range for Service Req: Timeline to reassess: Sr. Social Media & Mobile Manager Clinican/Clinical Fellow: No Supervisory Statement: I have reviewed and agree with the student/clinical fellow's documentation: N/A Speech Language Pathologist: Nina Garcia M.S., CCC-MONUMENT STONECUTTER
[2024-12-03] MEDS: Sodium Chloride Tab 1 GM TABLET PO ×2 (16:41→20:30)
--- NOTE | 2024-12-03 18:23 | PM.NEUROCN ---
History of Present Illness Data of Consult Service Date: 12/03/24 Primary Care Provider: Akhil Cintron, DO HPI Reason for consult: Altered mental status, ? Sz The patient is a 39-year-old male with a history of traumatic brain injury,? schizophrenia, schizoaffective disorder, bipolar, benign prostatic hyperplasia, polydipsia, who was seen at [facility] for his first Sz in January 2024 and resides at [facility] for 8 to 9 years under the care of Dr. Nas Cintron. He is brought to the ED to be assess for altered mental status. He reportedly had a seizure yesterday lasting nearly 5 minutes and today has not been himself, not talking and has felt hot, and had an episode of coffee-ground emesis. No fever reported. Work up here including head CT unremarkable, VBG Ok, CBC and BMP Ok, an LP has been done result pending. He has been given Vancomycin. No apparent sourcee of infection identified. He has has no seizure disorder but he had an episode of seizure last January and required ICU care PMFSH Past Medical History Medical History (Updated 12/03/24 @ 18:26 by Shad Parrish MD) Allergic rhinitis, unspecified Polydipsia Benign prostatic hyperplasia with lower urinary tract symptoms Unspecified urinary incontinence Mild cognitive impairment Cocaine abuse Alcohol dependence, in remission Altered mental status, unspecified Cannabis abuse with intoxication, uncomplicated Myopia of both eyes Anxiety Dementia Schizo affective schizophrenia Social History Social History Household Members: Other Household Members Other:: facility- other patients Housing: Jail Do you presently have visiting nurse or other home services: Yes (lives at [facility]) Unable to assess alcohol history related to: Unable to respond Patient Tobacco Use Status: Never used Tobacco Use of substances other than those prescribed or required for medical reasons: Unable to respond Advance Directives: Yes Advance Directives on File: Yes Advance Directives Date on File: 01/23/24 Do you have a plan to hurt others: No Plan service: No Meds Allergies Allergy/AdvReac Type Severity Reaction Status Date / Time haloperidol (Haldol) Allergy Unknown Unknown Verified 12/02/24 10:25 Benadryl Allergy Unknown Unknown Uncoded 01/23/24 20:17 Active Medications: Current Medications Acetaminophen (Acetaminophen 325 Mg Tablet) 650 mg PO Q4H PRN PRN Reason: Fever Or Pain Al Hydroxide/Mg Hydroxide (Magnesium Hydrox/Alum Hydrox 30 Ml Oral.Susp) 30 ml PO Q4H PRN PRN Reason: Dyspepsia Bisacodyl (Bisacodyl 10 Mg Supp.Rect) 10 mg NV DAILY PRN PRN Reason: constipation if senna ineffective Calcium Carbonate (Calcium Carbonate 750 Mg Tab.Chew) 750 mg PO Q4H PRN PRN Reason: Heartburn Chlorhexidine Gluconate (Chlorhexidine Gluc Oral Rinse 15 Ml Mouthwash) 15 ml BUCCAL BID [facility] Last Admin: 12/03/24 08:52 Dose: Not Given Lactated Ringer's (Lr) 1,000 mls @ 125 mls/hr IVCONT .Q8H [facility] Last Admin: 12/03/24 10:53 Dose: 125 mls/hr Levetiracetam (Keppra) 500 mg in 100 mls @ 400 mls/hr IV Q12H [facility] Last Admin: 12/03/24 17:45 Dose: 400 mls/hr Piperacillin Sod/Tazobactam (Sod 4.5 gm/ Sodium Chloride) 100 mls @ 200 mls/hr IV Q6H [facility] Last Admin: 12/03/24 17:45 Dose: 200 mls/hr Lactulose (Lactulose 20 Gm/30 Ml Solution) 60 gm PO QID [facility] Last Admin: 12/03/24 17:45 Dose: 60 gm Magnesium Hydroxide (Milk Of Magnesia 30 Ml Oral.Susp) 30 ml PO DAILY PRN PRN Reason: Constipation Melatonin (Melatonin 3 Mg Tablet) 6 mg PO BEDTIME PRN PRN Reason: Insomnia Multivitamins/Vitamin C (Multivitamin Tablet) 1 tab PO DAILY [facility] Last Admin: 12/03/24 08:54 Dose: Not Given Ondansetron HCl (Ondansetron Hcl 4 Mg/2 Ml Vial) 4 mg IVPUSH Q8H PRN PRN Reason: Nausea and Vomiting Pantoprazole Sodium (Pantoprazole Sodium 40 Mg/10 Ml Vial) 40 mg IVPUSH BID@0630,1630 [facility] Last Admin: 12/03/24 17:45 Dose: 40 mg Perphenazine (Perphenazine 2 Mg Tablet) 2 mg PO BID [facility] Last Admin: 12/03/24 08:53 Dose: Not Given Perphenazine (Perphenazine 4 Mg Tablet) 4 mg PO BID [facility] Last Admin: 12/03/24 08:53 Dose: Not Given Rifaximin (Rifaximin 550 Mg Tablet) 550 mg PO BID [facility] Last Admin: 12/03/24 08:53 Dose: Not Given Risperidone (Risperidone 0.5 Mg Tablet) 0.5 mg PO BID [facility] Last Admin: 12/03/24 08:53 Dose: Not Given Risperidone (Risperidone 3 Mg Tablet) 3 mg PO BID [facility] Last Admin: 12/03/24 08:53 Dose: Not Given Senna (Sennosides 8.6 Mg Tablet) 8.6 mg PO DAILY PRN PRN Reason: Constipation Sodium Biphosphate/Sodium Phosphate (Sodium Phosphate,Rawlins-Dibasic 133 Ml Enema) 118 ml NV DAILY PRN PRN Reason: Constipation Sodium Chloride (0.9 % Sodium Chloride Flush 3 Ml Syringe) 3 ml IVFLUSH QSHIFT [facility] Last Admin: 12/03/24 17:11 Dose: Not Given Sodium Chloride (Sodium Chloride Tab 1 Gm Tablet) 1 gm PO TID [facility] Last Admin: 12/03/24 16:41 Dose: 1 gm Tamsulosin HCl (Tamsulosin Hcl 0.4 Mg Capsule) 0.8 mg PO DAILY [facility] Last Admin: 12/03/24 08:54 Dose: Not Given Tolterodine Tartrate (Tolterodine Tartrate La 4 Mg Cap.Er.24h) 4 mg PO BEDTIME [facility] Last Admin: 12/02/24 20:28 Dose: Not Given Trihexyphenidyl HCl (Trihexyphenidyl Hcl 2 Mg Tablet) 1 mg PO BID [facility] Last Admin: 12/03/24 08:53 Dose: Not Given Home Medications ?Medication ?Instructions ?Recorded ?Confirmed ?Last Taken ?Type acetaminophen 325 mg tablet 650 mg PO Q4H PRN Fever Or Pain 01/24/24 12/02/24 Unknown History aluminum-mag hydroxide-simethicone 30 ml PO Q4H PRN Dyspepsia 01/24/24 12/02/24 Unknown History 200 mg-200 mg-20 mg/5 mL oral susp (Kat-Lanta) bisacodyl 10 mg rectal suppository 10 mg NV DAILY PRN constipation if 01/24/24 12/02/24 Unknown History senna ineffective chlorhexidine gluconate 0.12 % 15 ml buccal BID dental care 01/24/24 12/02/24 Unknown History mouthwash fluoride (sodium) 1.1 % dental 1 appl dental BEDTIME oral care 01/24/24 12/02/24 Unknown History paste (PreviDent 5000 Booster Plus) fluoride (sodium) 1.1 % dental 1 appl dental Q2H PRN oral care 01/24/24 12/02/24 Unknown History paste (PreviDent 5000 Booster Plus) lactulose 10 gram/15 mL oral 90 ml PO QID 01/24/24 12/02/24 Unknown History solution multivitamin 1 tab PO DAILY 01/24/24 12/02/24 Unknown History perphenazine 2 mg tablet 2 mg PO BID 01/24/24 12/02/24 Unknown History perphenazine 4 mg tablet 4 mg PO BID 01/24/24 12/02/24 Unknown History rifaximin 550 mg tablet (Xifaxan) 550 mg PO BID 01/24/24 12/02/24 Unknown History risperidone 0.5 mg tablet 0.5 mg PO BID 01/24/24 12/02/24 Unknown History risperidone 3 mg tablet 3 mg PO BID 01/24/24 12/02/24 Unknown History sennosides 8.6 mg tablet (senna) 8.6 mg PO DAILY PRN Constipation 01/24/24 12/02/24 Unknown History sodium chloride 1,000 mg soluble 1,000 mg PO TID 01/24/24 12/02/24 Unknown History tablet sodium phosphates 19 gram-7 118 ml NV DAILY PRN Constipation 01/24/24 12/02/24 Unknown History gram/118 mL enema (Fleet Enema) solifenacin 5 mg tablet (Vesicare) 5 mg PO BEDTIME 01/24/24 12/02/24 Unknown History tamsulosin 0.4 mg capsule 0.8 mg PO DAILY 01/24/24 12/02/24 Unknown History trihexyphenidyl 2 mg tablet 1 mg PO BID 01/24/24 12/02/24 Unknown History Physical Exam Vital Signs: Vital Signs: Last Vital Signs Temp 98.7 F 12/03/24 07:19 Pulse 58 12/03/24 17:53 Resp 13 12/03/24 17:53 BP 115/78 12/03/24 17:53 Pulse Ox 100 12/03/24 17:53 O2 Del Method Room Air 12/03/24 17:53 BMI result Body Mass Index 21.1 Neuro: Other: Limited non focal exam and limited cooperation. Neck supple. Results Labs 12/03/24 10:58 12/03/24 04:23 Labs: Short CBC 12/03/24 Range/Units 10:58 WBC 6.4 (4.8-10.8) X10*3/uL Hgb 13.4 L D (14.0-18.0) g/dl Hct 36.3 L D (42.0-52.0) % Plt Count 156 L (160-400) X10*3/uL BMP 12/03/24 04:23 Sodium 136 Potassium 3.6 Chloride 107 Carbon Dioxide 23 BUN 4 L Creatinine 0.53 Calcium 8.6 Liver Function 12/03/24 Range/Units 04:23 Total Bilirubin 1.0 (0.0-1.0) mg/dL AST 26 (5-37) U/L ALT 21 (0-40) U/L Alkaline Phosphatase 59 (39-117) U/L Albumin 3.8 (3.5-5.0) g/dL Microbiology Microbiology Results: Microbiology 12/02/24 10:50 Blood - Venous Blood Culture - Preliminary No growth after 24 hours. 12/02/24 10:50 Blood - Venous Blood Culture - Preliminary No growth after 24 hours. 12/02/24 16:48 Cerebrospinal Fluid Gram Stain - Final 12/02/24 16:48 Cerebrospinal Fluid Fluid Description - Final 12/02/24 16:48 Cerebrospinal Fluid CSF Culture - Preliminary No growth to date. Assessment and Plan (1) Altered mental status: Status: Acute In the absence of any clear metabolic abnormality other than Na of 130, and no clear infectious etiology, his AMS may be post ictal state from a Sz reported yesterday. He has had one previous one in Jan 2024 and this could be related to TBI. CT brain is relatively unremarkable. Recom. EEG. Start Keppra 500mg bid. (2) Seizure disorder: Status: Acute Sz reported yesterday. He has had one previous one in Jan 2024. These could be related to TBI. CT brain is relatively unremarkable. Recom. EEG. Start Keppra 500mg bid. Procedures Date of Service Date of Service: 12/03/24
[2024-12-03] MEDS: Tolterodine Tartrate LA 4 MG CAP.ER.24H PO (19:38)
[2024-12-03] MEDS: Trihexyphenidyl HCL 2 MG TABLET 1 MG PO (19:38)
[2024-12-03] MEDS: Perphenazine 2 MG TABLET PO (19:39)
[2024-12-03] MEDS: 0.9 % Sodium Chloride Flush 3 ML SYRINGE IVFLUSH (19:40)
[2024-12-03] MEDS: risperiDONE 3 MG TABLET PO (19:40)
[2024-12-03] MEDS: Chlorhexidine Gluc Oral Rinse 15 ML MOUTHWASH BUCCAL (19:40)
[2024-12-03] MEDS: Perphenazine 4 MG TABLET PO (19:40)
[2024-12-03] MEDS: risperiDONE 0.5 MG TABLET PO (19:40)
[2024-12-03] MEDS: rifAXIMin 550 MG TABLET PO (19:40)
--- NOTE | 2024-12-04 00:02 | CONS_ITS ---
DATE OF SERVICE: 12/03/2024 REFERRING PHYSICIAN: Dr. Escamilla REASON FOR CONSULTATION: History of questionable coffee-grounds emesis and anemia. HISTORY OF PRESENT ILLNESS: The patient is a pleasant 39-year-old man who was admitted to the hospital after presenting to the emergency department from a chronic care facility with changes in his mental status. History is obtained mainly from the chart as patient provides very little history. There is a report of possible coffee-grounds emesis at the facility prior to his admission when he had a seizure. Documentation on this is limited. He was evaluated in the emergency department for his change in mental status and admitted to the hospital. The patient currently denies any symptoms of nausea, vomiting, or diarrhea. Evaluation in the emergency department showed a hematocrit of 35.2. Repeat hematocrit last evening was 27, but repeat hematocrit this morning was basically improved at 36.3 without any history of GI bleeding or blood transfusion. The patient is currently being treated with a proton pump inhibitor and has not been noted to have any hematemesis or coffee-grounds emesis since his admission. PAST MEDICAL HISTORY: 1. Traumatic brain injury. 2. Schizophrenia/schizoaffective disorder. 3. Bipolar disorder. 4. BPH. 5. Cognitive impairment. 6. Substance abuse including cocaine and alcohol, currently reported as being in remission. 7. Anxiety. MEDICATIONS: His medication list is extensive and is reviewed. It does not appear that he is taking chronic NSAIDs or anticoagulants. ALLERGIES: HALOPERIDOL AND BENADRYL. FAMILY HISTORY: This is reviewed in the electronic medical record and is noncontributory. SOCIAL HISTORY: There is no current reported tobacco, alcohol, or substance abuse. REVIEW OF SYSTEMS: This is not reliably obtainable. PHYSICAL EXAMINATION: GENERAL: Shows a pleasant, thin male, lying in bed. He appears comfortable and does not complain of any abdominal pain or vomiting. SKIN: Pale. HEENT: Shows no scleral icterus. NECK: Without lymphadenopathy or thyromegaly. LUNGS: Clear heart shows regular rate and rhythm. S1, S2. No murmur. ABDOMEN: Soft without focal masses or tenderness. Bowel sounds are present. No organomegaly is noted. EXTREMITIES: Without edema. LABORATORY DATA AND IMAGING STUDIES: Reviewed. IMPRESSION: History of coffee-ground emesis. At this time, he appears quite stable without any evidence of active gastrointestinal bleeding. The differential diagnosis for coffee-grounds emesis in his case would include erosive esophagitis, gastritis, peptic ulcer disease, and AVMs of the upper GI tract. Based on his current presentation, I would recommend treating him with a proton pump inhibitor and following his hematocrit, which does not show any signs of decreasing secondary to acute bleeding. It is unclear why the hematocrit was low and then without transfusion, markedly improved. This may be a lab error. He can follow up as an outpatient and if he has any further bleeding in the hospital, please let me know. MD PING Calderon/VALERIO / [phone]
[2024-12-04] MEDS: Piperacillin Sodium/Tazobactam 4.5 GM in 0.9 % Sodium Chloride 100 ML IV ×3 (00:03→13:46)
[2024-12-04 03:13] VITALS: BP 132/84; PULSE 65; RESP 16; TEMP 37.2; O2SAT 99
[2024-12-04] MEDS: Lactated Ringers 1,000 ML 125 ML IVCONT ×2 (04:00→16:14)
[2024-12-04] MEDS: levETIRAcetam in NaCl (iso-os) 500 MG/100 ML PIGGYBACK 400 MG IV (05:40)
[2024-12-04] MEDS: Pantoprazole Sodium 40 MG/10 ML VIAL IVPUSH ×2 (05:42→16:16)
--- NOTE | 2024-12-04 06:46 | PC.NURSE ---
pt unable to void overnight, straight cath x1. Pt also having liquid stools x2 overnight. notified.
[2024-12-04 07:43] VITALS: BP 127/80; PULSE 68; TEMP 36.8; O2SAT 98
[2024-12-04] MEDS: rifAXIMin 550 MG TABLET PO (09:30)
[2024-12-04] MEDS: risperiDONE 0.5 MG TABLET PO (09:30)
[2024-12-04] MEDS: Multivitamin TABLET 1 TAB PO (09:30)
[2024-12-04] MEDS: Perphenazine 4 MG TABLET PO (09:30)
[2024-12-04] MEDS: risperiDONE 3 MG TABLET PO (09:30)
[2024-12-04] MEDS: Perphenazine 2 MG TABLET PO (09:30)
[2024-12-04] MEDS: Trihexyphenidyl HCL 2 MG TABLET 1 MG PO (09:30)
[2024-12-04] MEDS: Tamsulosin HCL 0.4 MG CAPSULE 0.8 MG PO (09:30)
[2024-12-04] MEDS: Lactulose 20 GM/30 ML SOLUTION 60 GM PO (09:31)
[2024-12-04] MEDS: 0.9 % Sodium Chloride Flush 3 ML SYRINGE IVFLUSH (09:31)
[2024-12-04] MEDS: Chlorhexidine Gluc Oral Rinse 15 ML MOUTHWASH BUCCAL (09:33)
--- NOTE | 2024-12-04 10:29 | P.DS_ITS ---
DS: Providers Provider Date of Service: 12/04/24 Date of admission: 12/02/24 17:14 Date of discharge: 12/04/24 Primary care physician: Akhil Cintron DO Consults: 12/02/24 17:18 Consult to Neurology Routine Consulting Provider: [facility] Reason for consultation: seizure Has provider been notified: No 12/03/24 10:20 Consult to Gastroenterology Routine Consulting Provider: Renny Alfred Reason for consultation: coffee ground emesis, anemia DS: Diagnosis Discharge Diagnosis (1) Altered mental status: Status: Acute (2) Seizure disorder: Status: Acute DS: Summary Hospital Course Hospital Course: admission hpi Chief Complaint: Altered mental status The patient is a 39-year-old male with a history of traumatic brain injury,? schizophrenia, schizoaffective disorder, bipolar, benign prostatic hyperplasia, polydipsia resident of [facility] for 8 to 9 years under the care of Dr. Nas Cintron. He is brought to the ED to be assess for altered mental status. He reportedly had a seizure yesterday lasting nearly 5 minutes and totday has not been himself, not talking and has felt hot, and had an episode of coffe-ground emesis. No fever reported. Work up here including head CT unremarkable, VBG Ok, CBC and BMP Ok, an LP has been done result pending. He has been given Vancomycin. No apparent sourcee of infection identified. He has has no seizure disorder but he had an episode of seizure last January and required ICU care. hospital course: 39 yo male with schizophrenia here with altered mental status following and seizure, possible prolonged post ictal state, also has had an episode of coffee ground emessis. Patient was admitted and started on IV keppra for seziure, IV PPI for presumed GIB and zosyn for possible aspiration pneumonia. Over the course of hospitalization, his mental status has gradually returned to baseline. He was seen by Neurologist and given another prior episode of seizure and no other identifiable cause for seizure, keppra 500 mg bid is recommended and an EEG done result pending. As for 1 episode of reported coffee ground emessis was given IV PPI, initial hemoglobin was 11, repeated same day was 10 and the next day 13, he has not had any further episode of bleeding. He was seen by GI and given that stability and no further drop in H and H, no intervention is planned he will continue oral PPO. As for question of pneumonia, he had a one time temp of 100.5 was started IV Zosyn for possible aspiration pneumonia, however chest xray was clear and no further fever so antibiotics will not be continued. Patient had an episode of urinary retention of 800 to 1000 cc and had to be straight cathed once, this appears to be behavioral driven and unless persist doesn't warrant further testing at this time. AMS, after seizure ? post ictal state vs encephalopathy. LP done no evidence of meningitis, seems to be back to baseline Seizure, no seizure d/o but this is second episode in less than a year, EEG, Neuro consult, Keppra 500 bid for now Schizophrenia resume meds after responsiblities Coffe ground emesis, H/H seems to have dropped, acute blood loss anemia, recheck H/H, continue IV PPI and GI eval Time Attestation Discharge Coordination Time (in mins): 45 Quality: Safe Use of Opioids Does Pt have an Active Cancer Diagnosis on the Problem List?: No Quality: Stroke Does the patient have a stroke diagnosis?: No Physical Exam Vital Signs: Vital Signs: Last Vital Signs Temp 98.3 F 12/04/24 07:43 Pulse 68 12/04/24 07:43 Resp 16 12/04/24 03:13 BP 127/80 12/04/24 07:43 Pulse Ox 98 12/04/24 07:43 O2 Del Method Room Air 12/04/24 07:43 BMI result Body Mass Index 21.9 Const: Other: General awake, alert and oriented to self Neck no JVD. CVS regular rate rhythm, Respiratory lungs clear to auscultation, no respiratory distress, no wheeze, no rhonchi. Gastrointestinal abdomen soft, non tender, bowel sounds audible, no no guarding , no rigidity. Extremities no edema. Neuro intact Skin no rash DS: Data Data Completed and Pending Labs on day of discharge: Laboratory Results - last 24 hr 12/03/24 12/04/24 10:58 01:50 WBC 6.4 RBC 4.32 L D Hgb 13.4 L D Hct 36.3 L D MCV 84.0 MCH 31.0 MCHC 36.9 H RDW 13.0 Plt Count 156 L MPV 10.4 Absolute Nucleated RBC 0.000 Nucleated RBC % (auto) 0.0 Hold Purple Top SEE NOTE Blood Type O Positive Antibody Screen NEGATIVE Preliminary micro results at discharge 12/02/24 16:48 CSF Culture - Preliminary Cerebrospinal Fluid No growth after 1 day 12/02/24 10:50 Blood Culture - Preliminary Blood - Venous No growth after 24 hours. 12/02/24 10:50 Blood Culture - Preliminary Blood - Venous No growth after 24 hours. Discharge Plan Discharge Anticipated Discharge Date/Time: 12/04/24 10:29 Patient Disposition: er [facility] Discharge Diagnosis: seizure, coffee ground emesis Referrals: [facility] [Outside] - 1 Week Akhil Cintron DO [Primary Care Provider, Internal Medicine] - 1 Week Discharge Medications: New levetiracetam [Keppra] 500 mg tablet 500 mg PO BID Qty: 180 0RF Continued perphenazine 2 mg tablet 2 mg PO BID risperidone 3 mg tablet 3 mg PO BID Rx Instructions: TOTAL DOSE 3.5 MG BID tamsulosin 0.4 mg capsule 0.8 mg PO DAILY perphenazine 4 mg tablet 4 mg PO BID Rx Instructions: TOTAL OF 6 MG BID trihexyphenidyl 2 mg tablet 1 mg PO BID risperidone 0.5 mg tablet 0.5 mg PO BID Rx Instructions: TOTAL DOSE 3.5 MG BID lactulose 10 gram/15 mL solution 90 ml PO QID Xifaxan 550 mg tablet 550 mg PO BID multivitamin Tablet 1 tab PO DAILY sennosides [senna] 8.6 mg Tablet 8.6 mg PO DAILY PRN (Reason: Constipation) acetaminophen 325 mg Tablet 650 mg PO Q4H PRN (Reason: Fever Or Pain) bisacodyl 10 mg Suppository 10 mg TN DAILY PRN (Reason: constipation if senna ineffective) Fleet Enema 19-7 gram/118 mL Enema 118 ml TN DAILY PRN (Reason: Constipation) alum-mag hydroxide-simeth [Kat-Lanta] 200-200-20 mg/5 mL Suspension 30 ml PO Q4H PRN (Reason: Dyspepsia) Rx Instructions: administer between meals and at bedtime solifenacin [Vesicare] 5 mg Tablet 5 mg PO BEDTIME chlorhexidine gluconate 0.12 % Mouthwash 15 ml BUCCAL BID Rx Instructions: Instruct pt to swish around for 30 seconds and spit; do not swallow; do not dilute fluoride (sodium) [PreviDent 5000 Booster Plus] 1.1 % Paste 1 appl DENTAL Q2H PRN (Reason: oral care) fluoride (sodium) [PreviDent 5000 Booster Plus] 1.1 % Paste 1 appl DENTAL BEDTIME sodium chloride 1,000 mg Tablet,Soluble 1,000 mg PO TID Discharge Orders: Discharge Order (Routine); Ordered 12/04/24 Ordered By: Bran Escamilla Diet: Advance to usual diet Activity on Discharge: As tolerated Stand Alone Forms: Patient Portal Discharge page Print Language: Turkmen Care Plan Goals: recovery from seizure Health Concerns: seizure Plan of Treatment: take keppra for seizure to have EEG done on outpatient basis Assessment: see above
[2024-12-04 11:10] LABS: Hematocrit 34.7 % (42.0-52.0); Hemoglobin 12.8 g/dl (14.0-18.0); Mean Corpuscular HGB Conc 36.9 g/dl (31.0-36.0); Mean Corpuscular Hemoglobin 30.9 pg (27.0-33.0); Mean Corpuscular Volume 83.8 fL (80.0-98.0); Mean Platelet Volume 10.3 fL (9.4-12.4); Platelet Count 187 X10*3/uL (160-400); Red Blood Count 4.14 X10*6/uL (4.60-5.80); Red Cell Distribution Width 13.1 % (11.0-16.0); White Blood Count 4.9 X10*3/uL (4.8-10.8)
--- NOTE | 2024-12-04 11:17 | P.CDIM_ITS ---
PROVIDER RESPONSE TEXT: To clarify, the appropriate diagnosis supported by the clinical indicators: Hyponatremia: acute QUERY TEXT: PHYSICIAN'S DOCUMENTATION REQUEST Date of Query: 12/04/2024 05:56 AM EDT Patient Name: Ranjeet Love Admit Date: 12/02/2024 Dear Bran Escamilla MD, A review of the medical record indicates additional documentation may be needed. Please review below and update the documentation accordingly. Clinical Indicators: LABS: Sodium 130 L Fluids Based on the above, is there a diagnosis that correlates with these findings? Hyponatremia resolved, possible, suspected etc. Labs indicate a diagnosis of (please specify) Other (explain) Clinically unable to determine (explain) Thank you, Candace Newberry, CCS, CDIS Use of terms such as suspected, likely, concern for, or probable (associated with a specific diagnosis that is being evaluated, monitored, or treated as if it exists) are acceptable and can be coded in the inpatient setting, when documented at the time of discharge. Please use your independent medical judgment in providing your response. THIS QUERY IS PART OF THE PERMANENT MEDICAL RECORD
--- NOTE | 2024-12-04 13:03 | MHC.CM.PN ---
Per MD in ROUNDS, Patient is medically cleared for dc to return to LTC @ [facility] today.CM informed SNF in [facility], after ROUNDS, that Patient is ready to return but CM has had no response as of yet. MEL called [facility]/Candace @ [phone] and she gave MEL Boss's # to call him. MEL called Kalin @ [phone] but was only able to leave a detailed message. MEL awaits a response from Kalin. is aware.
[2024-12-04 13:16] VITALS: BP 132/84; PULSE 70; RESP 16; TEMP 36.6; O2SAT 100
--- NOTE | 2024-12-04 13:45 | MHC.CM.PN ---
Patient will return to [facility] today at 6PM, via [facility]. Last IMM was addressed yesterday. CM spoke with Guardian/Keshia @ [phone] and informed her of the dc plan.
--- NOTE | 2024-12-04 15:09 | MHC.SLORD ---
Speech Language Pathology Order Status: Patient is pending discharge back to [facility] on this date. Patient not seen for Dysphagia [place].
[2024-12-04 15:43] VITALS: BP 145/82; PULSE 67; RESP 14; TEMP 36.9; O2SAT 100
== END 2024-12-04 18:31 | DRG 101 ==
LOC: HO.ED 18:01 → HO.EDOVER 18:05 → HO.IMC 12-03 16:52
PROVIDERS: Admitting Provider Internal Medicine; Emergency Provider Emergency Medicine; PCP Hospitalist; Visit Provider Internal Medicine
DX: G40.909 Epilepsy, unspecified, not intractable, without status epilepticus (principal); D62 Acute posthemorrhagic anemia; E87.1 Hypo-osmolality and hyponatremia; F03.90 Unspecified dementia, unspecified severity, without behavioral disturbance, psychotic disturbance, mood disturbance, and anxiety; R11.10 Vomiting, unspecified; F20.9 Schizophrenia, unspecified; Z20.822 Contact with and (suspected) exposure to COVID-19; Z87.820 Personal history of traumatic brain injury; Z79.899 Other long term (current) drug therapy
CPT/HCPCS: 0241U; 36415; 70450; 71045; 80048; 80053; 80076; 81001; 82140; 82803; 82945; 83605; 83690; 83735; 84157; 85025; 85027; 86140; 86850; 86900; 86901; 87015; 87040; 87070; 87205; 87483; 89051; 92610; 93005; 95816; 99285; J0131; J0696; J1953; J2250; J2470; J2543; J3360; J3371; J7120

== ENCOUNTER → 2024-12-02 10:43 | Outpatient (BNV) | payer MEDICARE, MEDICAID, SELFPAY | PROVIDERS: Emergency Provider Emergency Medicine; PCP Hospitalist; Visit Provider Radiology Diagnostic Radiology | DX: J34.89 Other specified disorders of nose and nasal sinuses (principal); R50.9 Fever, unspecified | CPT/HCPCS: 70450; 71045 ==

== ENCOUNTER → 2024-12-02 10:43 | Outpatient (BNV) | payer MEDICARE, MEDICAID, SELFPAY | PROVIDERS: Admitting Provider Internal Medicine; Emergency Provider Emergency Medicine; PCP Hospitalist; Visit Provider Internal Medicine | DX: I51.7 Cardiomegaly (principal) | CPT/HCPCS: 93010 ==

== ENCOUNTER → 2024-12-02 17:14 | Outpatient (BNV) | payer MEDICARE, MEDICAID, SELFPAY | PROVIDERS: Admitting Provider Internal Medicine; Emergency Provider Emergency Medicine; PCP Hospitalist; Visit Provider Psychiatry & Neurology Neurology | DX: R41.82 Altered mental status, unspecified (principal); G40.909 Epilepsy, unspecified, not intractable, without status epilepticus | CPT/HCPCS: 99222 ==

== ENCOUNTER → 2024-12-02 17:14 | Outpatient (BNV) | payer MEDICARE, MEDICAID, SELFPAY | PROVIDERS: Admitting Provider Internal Medicine; Emergency Provider Emergency Medicine; PCP Hospitalist; Visit Provider Internal Medicine | DX: R41.82 Altered mental status, unspecified (principal); G40.909 Epilepsy, unspecified, not intractable, without status epilepticus | CPT/HCPCS: 99223; 99232; 99239 ==

== ENCOUNTER 2025-02-18 07:39 | Outpatient (REF) | payer MEDICARE, MEDICAID, SELFPAY ==
--- OUTSIDE RECORDS SUMMARY | 2025-02-18 07:42 | XMS_ITS | Encounter Summary ---
Author Organization [facility] Address [address] [place] [address] Care Team Providers Care Cras Name Role Phone Akhil Cintron MD Primary Care Provider [phone] Encounter Details Date Type Department Care Team (Late st Contact Info) Description 12/12/2024 Lab Requisition [facility] - Main Lab [address] [facility] [address] Akhil Cintron MD [address] [place] [address] Dr [address] [place], [place] Hypo-osmolality and hyponatremia Social History Tobacco Use Types Packs/Day Years Used Date Smoking Tobacco: Never Assessed Sex and Gender Information Value Date Recorded Sex Assigned at Not on file Legal Sex Male 12:21 PM EST Gender Identity Not on file Sexual Orientation Not on file documented as of this encounter Plan of Treatment Not on file documented as of this encounter Procedures Procedure Name Priority Date/Time Associated Diagnosis Comments BASIC METABOLIC PANEL Routine 12/12/2024 6:50 AM EDT Hypo-osmolality and hyponatremia documented in this encounter Results * (ABNORMAL) Basic metabolic panel (12/12/2024 6:50 AM EDT) Sodium 142 133 - 145 mmol/L LAB CHEMISTRY METHOD 12/12/2024 8:15 AM EDT [facility] Potassium 4.1 3.5 - 5.5 mmol/L LAB CHEMISTRY METHOD 12/12/2024 8:15 AM EDT [facility] Chloride 107 96 - 110 mmol/L LAB CHEMISTRY METHOD 12/12/2024 8:15 AM T [facility] CO2 33(H) 21 - 32 mmol/L LAB CHEMISTRY METHOD 12/12/2024 8:15 AM EDT [facility] Anion Gap 2(L) 3 - 11 LAB CHEMISTRY METHOD 12/12/2024 8:15 AM [facility] Glucose 81 70 - 100 mg/dL LAB CHEMISTRY METHOD 12/12/2024 8:15 AM [facility] BUN 10 5 - 25 mg/dL LAB CHEMISTRY METHOD 12/12/2024 8:15 AM [facility] Creatinine 0.74 0.70 - 1.30 mg/dL LAB CHEMISTRY METHOD 12/12/2024 8:15 AM [facility] eGFR 117 >=60 mL/min/1. 73m2 LAB CHEMISTRY METHOD 12/12/2024 8:15 AM [facility] Comment:Calculation based on the Chronic Kidney Disease Epidemiology Collaboration (CKD-EPI) equation refit without adjustment for race. BUN/Creatinine Ratio 13.5 LAB CHEMISTRY METHOD 12/12/2024 8:15 AM [facility] Calcium 8.9 8.5 - 10.5 mg/dL LAB CHEMISTRY METHOD 12/12/2024 8:15 AM [facility] Blood Venous blood specimen / Unknown 12/12/2024 6:50 AM EDT 12/12/2024 7:26 AM EDT us Akhil Cintron MD LAB BLOOD ORDERABLES Final Resul t [facility] [address] [place] [address], documented in this encounter Visit Diagnoses Diagnosis Hypo-osmolality and hyponatremia documented in this encounter Care Teams Cras Relationship Specialty Start Date End Date Akhil Cintron MD [address] [place] [address] Dr [address] [place] [address] PCP - General Internal Medicine 07/04/24 documented as of this encounter
--- OUTSIDE RECORDS SUMMARY | 2025-02-18 07:42 | XMS_ITS | Encounter Summary ---
Author Organization [facility] Address [address] [place] [address] Care Team Providers Care Assignment Editor Name Role Phone Akhil Cintron MD Primary Care Provider [phone] Encounter Details Date Type Department Care Team (Late st Contact Info) Description 01/02/2025 Lab Requisition [facility] - Main Lab 299 [facility] [place] [address] Akhil Cintron MD [address] [place] [address] Dr [address] [place], [place] Hypo-osmolality and hyponatremia Social History Tobacco [...] Associated Diagnosis Comments BASIC METABOLIC PANEL Routine 01/02/2025 5:55 AM EDT Hypo-osmolality and hyponatremia documented in this encounter Results * (ABNORMAL) Basic metabolic panel (01/02/2025 5:55 AM EDT) Sodium 138 133 - 145 mmol/L LAB CHEMISTRY METHOD 01/02/2025 7:38 AM EDT [facility] Potassium 3.9 3.5 - 5.5 mmol/L LAB CHEMISTRY METHOD 01/02/2025 7:38 AM EDT [facility] Chloride 106 96 - 110 mmol/L LAB CHEMISTRY METHOD 01/02/2025 7:38 AM EDT [facility] CO2 29 21 - 32 mmol/L LAB CHEMISTRY METHOD 01/02/2025 7:38 AM EDT [facility] Anion Gap 3 3 - 11 LAB CHEMISTRY METHOD 01/02/2025 7:[address] [facility] Glucose 95 70 - 100 mg/dL LAB CHEMISTRY METHOD 01/02/2025 7:[address] [facility] BUN 3(L) 5 - 25 mg/dL LAB CHEMISTRY METHOD 01/02/2025 7:[address] [facility] Creatinine 0.56(L) 0.70 - 1.30 mg/dL LAB CHEMISTRY METHOD 01/02/2025 7:[address] [facility] eGFR 128 >=60 mL/min/1. 73m2 LAB CHEMISTRY METHOD 01/02/2025 7:[address] [facility] Comment:Calculation based on the Chronic Kidney Disease Epidemiology Collaboration (CKD-EPI) equation refit without adjustment for race. BUN/Creatinine Ratio 5.4 LAB CHEMISTRY METHOD 01/02/2025 7:[address] [facility] Calcium 9.2 8.5 - 10.5 mg/dL LAB CHEMISTRY METHOD 01/02/2025 7:[address] [facility] Blood Venous blood specimen / Unknown 01/02/2025 5:55 AM EDT 01/02/2025 6:28 AM EDT us Akhil Cintron MD LAB BLOOD ORDERABLES Final Resul t [facility] [address] [place] [address], documented in this encounter Visit Diagnoses Diagnosis Hypo-osmolality and hyponatremia documented in this encounter Care Teams Assignment Editor Relationship Specialty Start Date End Date Akhil Cintron MD [address] [place] [address] Dr [address] [place] [address] [place] PCP - General Internal Medicine 07/04/24 documented as of this encounter
--- OUTSIDE RECORDS SUMMARY | 2025-02-18 07:42 | XMS_ITS | Encounter Summary ---
[facility] Address [address] [place] [address] Care Team Providers Care Accountancy Professor Name Role Phone Akhil Cintron MD Primary Care Provider [phone] Encounter Details Date Type Department Care Team (Latest Contact Info) Description 12/29/2024 Lab Requisition [facility] [address] [facility] [place] [address] Akhil Cintron MD [address] [place] [address] [address] [place], [place] Hyperosmolality and hypernatremia Social History Tobacco Use Types Packs/Day Years [...] Associated Diagnosis Comments BASIC METABOLIC PANEL Routine 12/29/2024 5:57 AM EDT Hyperosmolality and hypernatremia documented in this encounter Results * (ABNORMAL) Basic metabolic panel (12/29/2024 5:57 AM EDT) Sodium 139 133 - 145 mmol/L LAB CHEMISTRY METHOD 12/29/2024 9:07 AM EDT [facility] Potassium 4.2 3.5 - 5.5 mmol/L LAB CHEMISTRY METHOD 12/29/2024 9:07 AM EDT [facility] Chloride 106 96 - 110 mmol/L LAB CHEMISTRY METHOD 12/29/2024 9:07 AM [facility] CO2 29 21 - 32 mmol/L LAB CHEMISTRY METHOD 12/29/2024 9:07 AM [facility] Anion Gap 4 3 - 11 LAB CHEMISTRY METHOD 12/29/2024 9:07 AM [facility] Glucose 82 70 - 100 mg/dL LAB CHEMISTRY METHOD 12/29/2024 9:07 AM [facility] BUN 6 5 - 25 mg/dL LAB CHEMISTRY METHOD 12/29/2024 9:07 AM [facility] Creatinine 0.62(L) 0.70 - 1.30 mg/dL LAB CHEMISTRY METHOD 12/29/2024 9:07 AM [facility] eGFR 124 >=60 mL/min/1. 73m2 LAB CHEMISTRY METHOD 12/29/2024 9:07 AM [facility] Comment:Calculation based on the Chronic Kidney Disease Epidemiology Collaboration (CKD-EPI) equation refit without adjustment for race. BUN/Creatinine Ratio 9.7 LAB CHEMISTRY METHOD 12/29/2024 9:07 AM [facility] Calcium 9.0 8.5 - 10.5 mg/dL LAB CHEMISTRY METHOD 12/29/2024 9:07 AM [facility] Blood Venous blood specimen / Unknown 12/29/2024 5:57 AM EDT 12/29/2024 6:33 AM EDT us Akhil Cintron MD LAB BLOOD ORDERABLES Final Resul t [facility] [address] [place] [address], documented in this encounter Visit Diagnoses Diagnosis Hyperosmolality and hypernatremia Hyperosmolality and/or hypernatremia documented in this encounter Care Teams Accountancy Professor Relationship Specialty Start Date End Date Akhil Cintron MD [address] [place] [address] Dr [address] [facility] [place] PCP - General Internal Medicine 07/04/24 documented as of this encounter
--- OUTSIDE RECORDS SUMMARY | 2025-02-18 07:43 | XMS_ITS | Clinical Summary ---
Author Organization [address] Address [address] [place] [address] Phone Care Team Providers Care Rough Planer Tender Name Role Phone Akhil Cintron MD Primary Care Provider [phone] Encounters Date Type Department Care Team Description 02/13/2025 Lab Requisition [facility] Lab [address] [place] [phone] Akhil Cintron MD Hypo-osmolality and hyponatremia 02/06/2025 Lab Requisition [facility] Lab [address] [place] [address] Akhil Cintron MD Hypo-osmolality and hyponatremia 01/30/2025 Lab Requisition [facility] Lab [address] [place] [address] Akhil Cintron MD Hypo-osmolality and hyponatremia 01/23/2025 Lab Requisition [facility] Lab [address] [place] [address] Akhil Cintron MD Hypo-osmolality and hyponatremia 01/16/2025 Lab Requisition [facility] Lab [address] [place] [address] Akhil Cintron MD Hypo-osmolality and hyponatremia 01/09/2025 Lab Requisition [facility] Lab [address] [place] [address] Akhil Cintron MD Hypo-osmolality and hyponatremia 01/02/2025 Lab Requisition [facility] Lab [address] [place] [address] Akhil Cintron MD Hypo-osmolality and hyponatremia 12/29/2024 Lab Requisition [facility] Lab [address] [place] [phone] Akhil Cintron MD Hyperosmolality and hypernatremia 12/19/2024 Lab Requisition [facility] Lab [address] [place] [phone] Akhil Cintron MD Hypo-osmolality and hyponatremia 12/12/2024 Lab Requisition [facility] Lab [address] [place] [phone] Akhil Cintron MD Hypo-osmolality and hyponatremia 12/11/2024 Lab Requisition [facility] Lab [address] [place] [phone] Akhil Cintron MD Encounter for therapeutic drug level monitoring 12/05/2024 Lab Requisition [facility] Lab [address] [place] [phone] Akhil Cintron MD Hypo-osmolality and hyponatremia 11/28/2024 Lab Requisition [facility] Lab [address] [place] [phone] Akhil Cintron MD Other long term care phlebotomist (current) drug therapy; Encounter for screening for malignant neoplasm of prostate 11/21/2024 Lab Requisition [facility] Lab [address] [place] [phone] Akhil Cintron MD Hypo-osmolality and hyponatremia from Last 3 Months Social History Tobacco Use Types Packs/Day Years Used Date Smoking Tobacco: Never Assessed Sex and Gender Information Value Date Recorded Sex Assigned at Not on file Legal Sex Male 12:21 PM EST Gender Identity Not on file Sexual Orientation Not on file Plan of Treatment Health Maintenance Due Date Last Done Comments DTaP,Tdap,and Td Vaccines (1 - Tdap) 2003 Hepatitis B Vaccines (1 of 3 - 19+ 3-dose series) 2003 HIV Screening 05/09/2022 Hepatitis C Screening 05/09/2022 Medicare Annual Wellness Visit 05/09/2022 Social Influencers of Health Screening 05/09/2022 Depression Screening 06/11/2024 COVID-19 Vaccine (1 - 2023-2 5 season) 2025 Influenza Vaccine (#1) 2025 Cholesterol Screening (Lipid Panel) 08/28/2029 08/28/2024, 07/16/2024, 06/13/2024 HIB Vaccines Aged Out No longer eligi [...] on patient's age to complete this topic MMR Vaccines Aged Out No longer eligi ble based on patient's age to complete this topic Meningococcal ACWY Vaccine Aged Out N o longer eligible based on patient's age to complete this topic Meningococcal B Vaccine Aged Out No l onger eligible based on patient's age to complete this topic Pneumococcal Vaccine: Pediatrics (0 to 5 Years) and At-Risk Patients (6 to 49 Years) Aged Out No longer eligible b ased on patient's age to complete this topic RSV Immunization Patients Under 20 months Aged Out No longer eligible b ased on patient's age to complete this topic Varicella Vaccines Aged Out No longer eligible based on patient's age to complete this topic Procedures Procedure Name Priority Date/Time Associated Diagnosis Comments BASIC METABOLIC PANEL Routine 02/13/2025 7:00 AM EDT Hypo-osmolality and hyponatremia BASIC METABOLIC PANEL Routine 02/06/2025 6:50 AM EDT Hypo-osmolality and hyponatremia BASIC METABOLIC PANEL Routine 01/30/2025 5:45 AM EDT Hypo-osmolality and hyponatremia BASIC METABOLIC PANEL Routine 01/23/2025 6:15 AM EDT Hypo-osmolality and hyponatremia BASIC METABOLIC PANEL Routine 01/16/2025 6:25 AM EDT Hypo-osmolality and hyponatremia BASIC METABOLIC PANEL Routine 01/09/2025 5:58 AM EDT Hypo-osmolality and hyponatremia BASIC METABOLIC PANEL Routine 01/02/2025 5:55 AM EDT Hypo-osmolality and hyponatremia BASIC METABOLIC PANEL Routine 12/29/2024 5:57 AM EDT Hyperosmolality and hypernatremia BASIC METABOLIC PANEL Routine 12/19/2024 6:55 AM EDT Hypo-osmolality and hyponatremia BASIC METABOLIC PANEL Routine 12/12/2024 6:50 AM EDT Hypo-osmolality and hyponatremia LEVETIRACETAM LEVEL Routine 12/11/2024 6 :16 AM EDT Encounter for therapeutic drug level monitoring BASIC METABOLIC PANEL Routine 12/05/2024 12:25 PM EDT Hypo-osmolality and hyponatremia AMMONIA Routine 11/28/2024 5:55 AM EDT Other long term care phlebotomist (current) drug therapy Encounter for screening for malignant neoplasm of prostate PROSTATE SPECIFIC ANTIGEN SCREEN Routine 11/28/2024 5:55 AM EDT Other long term care phlebotomist (current) drug therapy Encounter for screening for malignant neoplasm of prostate BILIRUBIN, DIRECT Routine 11/28/2024 5:5 5 AM EDT Other long term care phlebotomist (current) drug therapy Encounter for screening for malignant neoplasm of prostate COMPREHENSIVE METABOLIC PANEL Routine 11/28/2024 5:55 AM EDT Other halfway (current) drug therapy Encounter for screening for malignant neoplasm of prostate BASIC METABOLIC PANEL Routine 11/21/2024 6:15 AM EDT Hypo-osmolality and hyponatremia LIPID PANEL WITH REFLEX TO DIRECT LDL Routine 08/28/2024 6:20 AM EDT Schizoaffective disorder, bipolar type (CMS/HCC) Benign prostatic hyperplasia with lower urinary tract symptoms Encounter for screening for cardiovascular disorders Other long term care phlebotomist (current) drug therapy from Last 3 Months or Most Recently Relevant to Health Maintenance Results * (ABNORMAL) Basic metabolic panel (02/13/2025 7:00 AM EDT) Only the most recent of12 resultswithin the time period is included. Sodium 140 133 - 145 mmol/L LAB CHEMISTRY METHOD 02/13/2025 8:34 AM [facility] Potassium 4.1 3.5 - 5.5 mmol/L LAB CHEMISTRY METHOD 02/13/2025 8:34 AM [facility] Chloride 107 96 - 110 mmol/L LAB CHEMISTRY METHOD 02/13/2025 8:34 AM [facility] CO2 31 21 - 32 mmol/L LAB CHEMISTRY METHOD 02/13/2025 8:34 AM [facility] Anion Gap 2(L) 3 - 11 LAB CHEMISTRY METHOD 02/13/2025 8:34 AM [facility] Glucose 97 70 - 100 mg/dL LAB CHEMISTRY METHOD 02/13/2025 8:34 AM [facility] BUN 3(L) 5 - 25 mg/dL LAB CHEMISTRY METHOD 02/13/2025 8:34 AM [facility] Creatinine 0.66(L) 0.70 - 1.30 mg/dL LAB CHEMISTRY METHOD 02/13/2025 8:34 AM [facility] eGFR 122 >=60 mL/min/1. 73m2 LAB CHEMISTRY METHOD 02/13/2025 8:34 AM [facility] Comment:Calculation based on the Chronic Kidney Disease Epidemiology Collaboration (CKD-EPI) equation refit without adjustment for race. BUN/Creatinine Ratio 4.5 LAB CHEMISTRY METHOD 02/13/2025 8:34 AM [facility] Calcium 8.9 8.5 - 10.5 mg/dL LAB CHEMISTRY METHOD 02/13/2025 8:34 AM [facility] Blood Venous blood specimen / Unknown 02/13/2025 7:00 AM EDT 02/13/2025 7:49 AM EDT us Akhil Cintron MD LAB BLOOD ORDERABLES Final Resul t Performing Organization Address City/[facility]/ZIP Co de Phone Number [facility] [address] [place] [address], [place] [phone] * Levetiracetam level (12/11/2024 6:16 AM EDT) Levetiracetam 7.8 3.0 - 60.0 ug/mL 12/15/2024 6:00 AM EDT [facility] Comment: Steady state trough serum or plasma levels following doses of 1000 to 3000 mg/Day: 3 to 37 ug/mL. The same dosage regimen will typically result in peak levels of 10 to 60 ug/mL, at approximately 1.5 hours post dose. If applicable, any drug confirmation testing reported here was developed and the performance characteristics determined by [facility]. This confirmation testing has not been cleared or approved by the FDA. The laboratory is regulated under CLIA as qualified to perform high-complexity testing. This test is used for patient testing purposes. It should not be regarded as investigational or for research. Test performed at [facility], [address] [place] [address] Nancy Dolan MD, PhD - Athletic Coordinator Blood Venous blood specimen / Unknown 12/11/2024 6:16 AM EDT 12/11/2024 7:29 AM EDT us Akhil Cintron MD LAB BLOOD ORDERABLES Final Resul t [facility] [address] [place] [address] * Prostate specific antigen screen (11/28/2024 5:55 AM EDT) PSA 0.48 0.00 - 4.00 ng/mL LAB CHEMISTRY METHOD 11/28/2024 10:15 AM EDT [facility] Blood Venous blood specimen / Unknown 11/28/2024 5:55 AM EDT 11/28/2024 8:04 AM EDT Narrative [facility] - 11/28/2024 10:15 AM EDT The Siemens Advia Centaur Chemiluminescent Immunoassay is used. Results obtained with different assay methods or kits cannot be used interchangeably. Results cannot be interpreted as absolute evidence of the presence or absence of malignant disease. us Akhil Cintron MD LAB BLOOD ORDERABLES Final Resul t Performing Organization Address City/[facility]/ZIP Co de Phone Number [facility] [address] [place] [address], [place] [phone] * Bilirubin, direct (11/28/2024 5:55 AM EDT) Bilirubin, Direct 0.2 0.0 - 0.3 mg/dL LAB CHEMISTRY METHOD 11/28/2024 9:26 AM EDT [facility] Blood Venous blood specimen / Unknown 11/28/2024 5:55 AM EDT 11/28/2024 8:04 AM EDT us Akhil Cintron MD LAB BLOOD ORDERABLES Final Resul t Performing Organization Address [facility] Co de Phone Number [facility] [address] [place] [address], [place] [phone] * Ammonia (11/28/2024 5:55 AM EDT) Ammonia 19 11 - 35 mcmol/L LAB CHEMISTRY METHOD 11/28/2024 8:59 AM EDT [facility] Blood Venous blood specimen / Unknown 11/28/2024 5:55 AM EDT 11/28/2024 8:04 AM EDT us Akhil Cintron MD LAB BLOOD ORDERABLES Final Resul t Performing Organization Address City/[facility]/ZIP Co de Phone Number [facility] [address] [place] [address], [place] [phone] * (ABNORMAL) Comprehensive metabolic panel (11/28/2024 5:55 AM EDT) Sodium 141 133 - 145 mmol/L LAB CHEMISTRY METHOD 11/28/2024 9:25 AM [facility] Potassium 4.5 3.5 - 5.5 mmol/L LAB CHEMISTRY METHOD 11/28/2024 9:25 AM [facility] Chloride 104 96 - 110 mmol/L LAB CHEMISTRY METHOD 11/28/2024 9:25 AM [facility] CO2 30 21 - 32 mmol/L LAB CHEMISTRY METHOD 11/28/2024 9:25 AM [facility] Anion Gap 7 3 - 11 LAB CHEMISTRY METHOD 11/28/2024 9:25 AM [facility] Glucose 96 70 - 100 mg/dL LAB CHEMISTRY METHOD 11/28/2024 9:25 AM [facility] BUN 5 5 - 25 mg/dL LAB CHEMISTRY METHOD 11/28/2024 9:25 AM [facility] Creatinine 0.52(L) 0.70 - 1.30 mg/dL LAB CHEMISTRY METHOD 11/28/2024 9:25 AM [facility] eGFR 131 >=60 mL/min/1. 73m2 LAB CHEMISTRY METHOD 11/28/2024 9:25 AM [facility] Comment:Calculation based on the Chronic Kidney Disease Epidemiology Collaboration (CKD-EPI) equation refit without adjustment for race. BUN/Creatinine Ratio 9.6 LAB CHEMISTRY METHOD 11/28/2024 9:25 AM [facility] Calcium 8.8 8.5 - 10.5 mg/dL LAB CHEMISTRY METHOD 11/28/2024 9:25 AM [facility] AST (SGOT) 17 10 - 42 unit/L LAB CHEMISTRY METHOD 11/28/2024 9:25 AM EDT [facility] ALT (SGPT) 36 10 - 60 unit/L LAB CHEMISTRY METHOD 11/28/2024 9:25 AM EDT [facility] Alkaline Phosphatase 69 42 - 121 unit/L LAB CHEMISTRY METHOD 11/28/2024 9:25 AM [facility] Total Protein 6.3 6.0 - 8.0 g/dL LAB CHEMISTRY METHOD 11/28/2024 9:25 AM [facility] Albumin 3.8 3.2 - 5.0 g/dL LAB CHEMISTRY METHOD 11/28/2024 9:25 AM [facility] Total Bilirubin 0.5 0.0 - 1.4 mg/dL LAB CHEMISTRY METHOD 11/28/2024 9:25 AM [facility] Blood Venous blood specimen / Unknown 11/28/2024 5:55 AM EDT 11/28/2024 8:04 AM EDT us Akhil Cintron MD LAB BLOOD ORDERABLES Final Resul t [facility] [address] [place] [address], * Lipid panel with reflex to direct LDL (08/28/2024 6:20 AM EDT) Cholesterol 130 0 - 200 mg/dL LAB CHEMISTRY METHOD 08/28/2024 7:41 AM T [facility] Triglycerides 47 0 - 150 mg/dL LAB CHEMISTRY METHOD 08/28/2024 7:41 AM T [facility] HDL 59 >=40 mg/dL LAB CHEMISTRY METHOD 08/28/2024 7:41 AM [facility] LDL Calculated 62 0 - 100 mg/dL LAB CHEMISTRY METHOD 08/28/2024 7:41 AM [facility] VLDL Cholesterol Will 9.4 mg/dL LAB CHEMISTRY METHOD 08/28/2024 7:41 AM EDT [facility] Non HDL Chol. (LDL+VLDL) 71 <145 mg/dL LAB CHEMISTRY METHOD 08/28/2024 7:41 AM EDT [facility] Chol/HDL Ratio 2.2 0.0 - 4.4 LAB CHEMISTRY METHOD 08/28/2024 7:41 AM EDT [facility] Blood Venous blood specimen / Unknown 08/28/2024 6:20 AM EDT 08/28/2024 6:55 AM EDT us Akhil Cintron MD LAB BLOOD ORDERABLES Final Resul t [facility] [address] [place] [address], [place] [phone] from Last 3 Months or Most Recently Relevant to Health Maintenance Insurance MEDICARE [place]ICAID - [place] Care Teams Rough Planer Tender Relationship Specialty Start Date End Date Akhil Cintron MD [address] [place] [address] Suite [facility] [place], [place] PCP - General Internal Medicine 07/04/24
--- OUTSIDE RECORDS SUMMARY | 2025-02-18 07:43 | XMS_ITS | Encounter Summary ---
[facility] Address [address] [place] [address] Care Team Providers Care Furniture Repair Technician Name Role Phone Akhil Cintron MD Primary Care Provider [phone] Encounter Details Date Type Department Care Team (Late st Contact Info) Description 06/27/2024 Lab Requisition [facility] - Main Lab [address] [place] [address] Akhil Cintron MD [address] [place] [address] Dr [address] [place], [place] Hypo-osmolality and hyponatremia Social History Tobacco [...] Associated Diagnosis Comments BASIC METABOLIC PANEL Routine 06/27/2024 6:20 AM EST Hypo-osmolality and hyponatremia documented in this encounter Results * (ABNORMAL) Basic metabolic panel (06/27/2024 6:20 AM EST) Sodium 137 133 - 145 mmol/L LAB CHEMISTRY METHOD 06/27/2024 7:58 AM EST [facility] Potassium 3.5 3.5 - 5.5 mmol/L LAB CHEMISTRY METHOD 06/27/2024 7:58 AM EST [facility] Chloride 103 96 - 110 mmol/L LAB CHEMISTRY METHOD 06/27/2024 7:58 AM EST [facility] CO2 31 21 - 32 mmol/L LAB CHEMISTRY METHOD 06/27/2024 7:58 AM EST [facility] Anion Gap 3 3 - 11 LAB CHEMISTRY METHOD 06/27/2024 7:58 AM [facility] Glucose 103(H) 70 - 100 mg/dL LAB CHEMISTRY METHOD 06/27/2024 7:58 AM [facility] BUN 2(L) 5 - 25 mg/dL LAB CHEMISTRY METHOD 06/27/2024 7:58 AM [facility] Creatinine 0.65(L) 0.70 - 1.30 mg/dL LAB CHEMISTRY METHOD 06/27/2024 7:58 AM [facility] eGFR 122 >=60 mL/min/1. 73m2 LAB CHEMISTRY METHOD 06/27/2024 7:58 AM [facility] Comment:Calculation based on the Chronic Kidney Disease Epidemiology Collaboration (CKD-EPI) equation refit without adjustment for race. BUN/Creatinine Ratio 3.1 LAB CHEMISTRY METHOD 06/27/2024 7:58 AM [facility] Calcium 9.3 8.5 - 10.5 mg/dL LAB CHEMISTRY METHOD 06/27/2024 7:58 AM [facility] Blood Venous blood specimen / Unknown 06/27/2024 6:20 AM EST 06/27/2024 6:59 AM EST us Akhil Cintron MD LAB BLOOD ORDERABLES Final Resul t [facility] [address] [place] [address], documented in this encounter Visit Diagnoses Diagnosis Hypo-osmolality and hyponatremia documented in this encounter Care Teams Furniture Repair Technician Relationship Specialty Start Date End Date Akhil Cintron MD [address] [place] [address] Dr Marta [facility] [place], [place] PCP - General Internal Medicine 07/04/24 documented as of this encounter
--- OUTSIDE RECORDS SUMMARY | 2025-02-18 07:43 | XMS_ITS | Encounter Summary ---
Author Organization [facility]na [facility] Address [address] [place] [address] Care Team Providers Care Legal Advisor Name Role Phone Akhil Cintron MD Primary Care Provider [phone] Encounter Details Date Type Department Care Team (Late st Contact Info) Description 10/09/2024 Lab Requisition [facility] - Main Lab [address] [facility] [place] [address] Akhil Cintron MD [address] [place] [address] Dr [address] [place], [place] Unspecified psychosis not due to a substance or known physiological condition (CMS/HCC V24, CMS/HCC V28) Social History Tobacco Use Types Packs/Day Years [...] Associated Diagnosis Comments BASIC METABOLIC PANEL Routine 10/09/2024 6:35 AM EDT Unspecified psychosis not due to a substance or known physiological condition (CMS/HCC V24, CMS/HCC V28) documented in this encounter Results * (ABNORMAL) Basic metabolic panel (10/09/2024 6:35 AM EDT) Sodium 133 133 - 145 mmol/L LAB CHEMISTRY METHOD 10/09/2024 9:10 AM EDT [facility] Potassium 3.6 3.5 - 5.5 mmol/L LAB CHEMISTRY METHOD 10/09/2024 9:10 AM EDT [facility] Chloride 98 96 - 110 mmol/L LAB CHEMISTRY METHOD 10/09/2024 9:10 AM [facility] CO2 29 21 - 32 mmol/L LAB CHEMISTRY METHOD 10/09/2024 9:10 AM [facility] Anion Gap 6 3 - 11 LAB CHEMISTRY METHOD 10/09/2024 9:10 AM [facility] Glucose 88 70 - 100 mg/dL LAB CHEMISTRY METHOD 10/09/2024 9:10 AM [facility] BUN 2(L) 5 - 25 mg/dL LAB CHEMISTRY METHOD 10/09/2024 9:10 AM [facility] Creatinine 0.49(L) 0.70 - 1.30 mg/dL LAB CHEMISTRY METHOD 10/09/2024 9:10 AM [facility] eGFR 133 >=60 mL/min/1. 73m2 LAB CHEMISTRY METHOD 10/09/2024 9:10 AM [facility] Comment:Calculation based on the Chronic Kidney Disease Epidemiology Collaboration (CKD-EPI) equation refit without adjustment for race. BUN/Creatinine Ratio 4.1 LAB CHEMISTRY METHOD 10/09/2024 9:10 AM [facility] Calcium 8.8 8.5 - 10.5 mg/dL LAB CHEMISTRY METHOD 10/09/2024 9:10 AM [facility] Blood Venous blood specimen / Unknown 10/09/2024 6:35 AM EDT 10/09/2024 8:10 AM EDT us Akhil Cintron MD LAB BLOOD ORDERABLES Final Resul t [facility] [address] [place] [address], documented in this encounter Visit Diagnoses Diagnosis Unspecified psychosis not due to a substance or known physiological condition (CMS/HCC V24, CMS/HCC V28) documented in this encounter Care Teams Legal Advisor Relationship Specialty Start Date End Date Akhil Cintron MD [address] [place] [address] Dr Marta [facility] [place] PCP - General Internal Medicine 07/04/24 documented as of this encounter
--- OUTSIDE RECORDS SUMMARY | 2025-02-18 07:43 | XMS_ITS | Clinical Summary ---
Author Organization [employer] Address [address] [facility] [address] [place] [address] Care Team Providers Care Cross Tie Cutter Name Role Phone Unavailable Primary Care Provider [...] Tobacco Screening 1996 Family Planning (PISQ) 1999 HPV Vaccines (1 - Male 3-dos e series) 1999 DTaP/Tdap/Td Vaccines (1 - Tdap) 2003 Hepatitis B Vaccines (1 of 3 - 19+ 3-dose series) 2003 COVID-19 Vaccine (1 - 2023-2 5 season) 2025 Influenza Vaccine (#1) 2025 Zoster Vaccines (1 of 2) 2034 [...]
--- OUTSIDE RECORDS SUMMARY | 2025-02-18 07:43 | XMS_ITS | Encounter Summary ---
Author Organization [employer] Address [address] [place] [address] Care Team Providers Care Science Education Professor Name Role Phone Akhil Cintron MD Primary Care Provider [phone] Encounter Details Date Type Department Care Team (Late st Contact Info) Description 07/16/2024 Lab Requisition [facility] - Main Lab [address] [facility] [place] [address] Akhil Cintron MD [address] [place] [address] Dr [address] [place], [place] Other mcc (current) drug therapy; Other disorders of electrolyte and fluid balance, not elsewhere classified; Other hypotension; Benign prostatic hyperplasia with lower urinary tract symptoms; Schizoaffective disorder, bipolar type (CMS/HCC V24, CMS/HCC V28) Social History Tobacco [...] Procedure Name Priority Date/Time Associated Diagnosis Comments PROSTATE SPECIFIC ANTIGEN SCREEN Routine 07/16/2024 6:50 AM EST Other moth exterminator (current) drug therapy Other disorders of electrolyte and fluid balance, not elsewhere classified Other hypotension Benign prostatic hyperplasia with lower urinary tract symptoms Schizoaffective disorder, bipolar type (CMS/HCC) LIPID PANEL WITH REFLEX TO DIRECT LDL Routine 07/16/2024 6:50 AM EST Other mcc (current) drug therapy Other disorders of electrolyte and fluid balance, not elsewhere classified Other hypotension Benign prostatic hyperplasia with lower urinary tract symptoms Schizoaffective disorder, bipolar type (CMS/HCC) BILIRUBIN, DIRECT Routine 07/16/2024 6:5 0 AM EST Other moth exterminator (current) drug therapy Other disorders of electrolyte and fluid balance, not elsewhere classified Other hypotension Benign prostatic hyperplasia with lower urinary tract symptoms Schizoaffective disorder, bipolar type (CMS/HCC) BASIC METABOLIC PANEL Routine 07/16/2024 6:50 AM EST Other moth exterminator (current) drug therapy Other disorders of electrolyte and fluid balance, not elsewhere classified Other hypotension Benign prostatic hyperplasia with lower urinary tract symptoms Schizoaffective disorder, bipolar type (CMS/HCC) documented in this encounter Results * Bilirubin, direct (07/16/2024 6:50 AM EST) Bilirubin, Direct 0.2 0.0 - 0.3 mg/dL LAB CHEMISTRY METHOD 07/16/2024 8:46 AM EST [facility] Blood Venous blood specimen / Unknown 07/16/2024 6:50 AM EST 07/16/2024 7:43 AM EST us Akhil Cintron MD LAB BLOOD ORDERABLES Final Resul t Performing Organization Address City/[facility] Co de Phone Number [facility] [address] [place] [address], [place] [phone] * Prostate specific antigen screen (07/16/2024 6:50 AM EST) PSA 0.44 0.00 - 4.00 ng/mL LAB CHEMISTRY METHOD 07/16/2024 8:45 AM EST [facility] Blood Venous blood specimen / Unknown 07/16/2024 6:50 AM EST 07/16/2024 7:43 AM EST Narrative [facility] - 07/16/2024 8:45 AM EST The Siemens Advia Centaur Chemiluminescent Immunoassay is used. Results obtained with different assay methods or kits cannot be used interchangeably. Results cannot be interpreted as absolute evidence of the presence or absence of malignant disease. us Akhil Cintron MD LAB BLOOD ORDERABLES Final Resul t [facility] [address] [place] [address], * (ABNORMAL) Basic metabolic panel (07/16/2024 6:50 AM EST) Sodium 137 133 - 145 mmol/L LAB CHEMISTRY METHOD 07/16/2024 8:46 AM [facility] Potassium 4.1 3.5 - 5.5 mmol/L LAB CHEMISTRY METHOD 07/16/2024 8:46 AM [facility] Chloride 102 96 - 110 mmol/L LAB CHEMISTRY METHOD 07/16/2024 8:46 AM [facility] CO2 30 21 - 32 mmol/L LAB CHEMISTRY METHOD 07/16/2024 8:46 AM [facility] Anion Gap 5 3 - 11 LAB CHEMISTRY METHOD 07/16/2024 8:46 AM [facility] Glucose 87 70 - 100 mg/dL LAB CHEMISTRY METHOD 07/16/2024 8:46 AM [facility] BUN 4(L) 5 - 25 mg/dL LAB CHEMISTRY METHOD 07/16/2024 8:46 AM [facility] Creatinine 0.67(L) 0.70 - 1.30 mg/dL LAB CHEMISTRY METHOD 07/16/2024 8:46 AM [facility] eGFR 121 >=60 mL/min/1. 73m2 LAB CHEMISTRY METHOD 07/16/2024 8:46 AM [facility] Comment:Calculation based on the Chronic Kidney Disease Epidemiology Collaboration (CKD-EPI) equation refit without adjustment for race. BUN/Creatinine Ratio 6.0 LAB CHEMISTRY METHOD 07/16/2024 8:46 AM [facility] Calcium 8.9 8.5 - 10.5 mg/dL LAB CHEMISTRY METHOD 07/16/2024 8:46 AM [facility] Blood Venous blood specimen / Unknown 07/16/2024 6:50 AM EST 07/16/2024 7:43 AM EST us Akhil Cintron MD LAB BLOOD ORDERABLES Final Resul t Performing Organization Address [facility]/ZIP Co de Phone Number [facility] [address] [place] [address], [place] [phone] * Lipid panel with reflex to direct LDL (07/16/2024 6:50 AM EST) Cholesterol 134 0 - 200 mg/dL LAB CHEMISTRY METHOD 07/16/2024 8:45 AM EST [facility] Triglycerides 92 0 - 150 mg/dL LAB CHEMISTRY METHOD 07/16/2024 8:45 AM [facility] HDL 48 >=40 mg/dL LAB CHEMISTRY METHOD 07/16/2024 8:45 AM [facility] LDL Calculated 68 0 - 100 mg/dL LAB CHEMISTRY METHOD 07/16/2024 8:45 AM EST [facility] VLDL Cholesterol Will 18.4 mg/dL LAB CHEMISTRY METHOD 07/16/2024 8:45 AM EST [facility] Non HDL Chol. (LDL+VLDL) 86 <145 mg/dL LAB CHEMISTRY METHOD 07/16/2024 8:45 AM [facility] Chol/HDL Ratio 2.8 0.0 - 4.4 LAB CHEMISTRY METHOD 07/16/2024 8:45 AM [facility] Blood Venous blood specimen / Unknown 07/16/2024 6:50 AM EST 07/16/2024 7:43 AM EST us Akhil Cintron MD LAB BLOOD ORDERABLES Final Resul t Performing Organization Address [facility] Co de Phone Number [facility] [address] [place] [address], [place] [phone] documented in this encounter Visit Diagnoses Diagnosis Other moth exterminator (current) drug therapy Other disorders of electrolyte and fluid balance, not elsewhere classified Other hypotension Benign prostatic hyperplasia with lower urinary tract symptoms Schizoaffective disorder, bipolar type ([facility] V24, [facility] V28) Schizoaffective disorder, unspecified condition documented in this encounter Care Teams Science Education Professor Relationship Specialty Start Date End Date Akhil Cintron MD [address] [place] [address] [address] [place] PCP - General Internal Medicine 07/04/24 documented as of this encounter
--- OUTSIDE RECORDS SUMMARY | 2025-02-18 07:43 | XMS_ITS | Encounter Summary ---
Author Organization [facility] Address [address] [place] [address] Care Team Providers Care Elementary School Director Name Role Phone Akhil Cintron MD Primary Care Provider [phone] Encounter Details Date Type Department Care Team (Late st Contact Info) Description 04/25/2024 Lab Requisition [facility] - Main Lab [address] [place] [address] Akhil Cintron MD [address] [place] [address] [address] [place], [place] Other alf (current) drug therapy Social History Tobacco Use Types Packs/Day Years [...] Associated Diagnosis Comments BASIC METABOLIC PANEL Routine 04/25/2024 5:10 AM EST Other alf (current) drug therapy documented in this encounter Results * (ABNORMAL) Basic metabolic panel (04/25/2024 5:10 AM EST) Sodium 140 133 - 145 mmol/L LAB CHEMISTRY METHOD 04/25/2024 7:19 AM EST [facility] Potassium 4.4 3.5 - 5.5 mmol/L LAB CHEMISTRY METHOD 04/25/2024 7:19 AM EST [facility] Chloride 108 96 - 110 mmol/L LAB CHEMISTRY METHOD 04/25/2024 7:19 AM EST [facility] CO2 31 21 - 32 mmol/L LAB CHEMISTRY METHOD 04/25/2024 7:19 AM EST [facility] Anion Gap 1(L) 3 - 11 LAB CHEMISTRY METHOD 04/25/2024 7:19 AM [facility] Glucose 91 70 - 100 mg/dL LAB CHEMISTRY METHOD 04/25/2024 7:19 AM [facility] BUN 7 5 - 25 mg/dL LAB CHEMISTRY METHOD 04/25/2024 7:19 AM [facility] Creatinine 0.79 0.70 - 1.30 mg/dL LAB CHEMISTRY METHOD 04/25/2024 7:19 AM [facility] eGFR 116 >=60 mL/min/1. 73m2 LAB CHEMISTRY METHOD 04/25/2024 7:19 AM [facility] Comment:Calculation based on the Chronic Kidney Disease Epidemiology Collaboration (CKD-EPI) equation refit without adjustment for race. BUN/Creatinine Ratio 8.9 LAB CHEMISTRY METHOD 04/25/2024 7:19 AM [facility] Calcium 9.3 8.5 - 10.5 mg/dL LAB CHEMISTRY METHOD 04/25/2024 7:19 AM [facility] Blood Venous blood specimen / Unknown 04/25/2024 5:10 AM EST 04/25/2024 5:49 AM EST us Akhil Cintron MD LAB BLOOD ORDERABLES Final Resul t [facility] [address] [place] [address], documented in this encounter Visit Diagnoses Diagnosis Other buttermaker (current) drug therapy documented in this encounter Care Teams Elementary School Director Relationship Specialty Start Date End Date Akhil Cintron MD [address] [place] [address] Dr Marta [place] PCP - General Internal Medicine 07/04/24 documented as of this encounter
--- OUTSIDE RECORDS SUMMARY | 2025-02-18 07:43 | XMS_ITS | Encounter Summary ---
[facility] Address [address] [place] [address] Care Team Providers Care Customer Service Leader Name Role Phone Akhil Cintron MD Primary Care Provider [phone] Encounter Details Date Type Department Care Team (Late st Contact Info) Description 05/02/2024 Lab Requisition [facility] - Main Lab [address] [place] [address] Akhil Cintron MD [address] [place] [address] Dr [address] [place], [place] Hypo-osmolality and hyponatremia Social History Tobacco [...] Associated Diagnosis Comments BASIC METABOLIC PANEL Routine 05/02/2024 6:53 AM EST Hypo-osmolality and hyponatremia documented in this encounter Results * (ABNORMAL) Basic metabolic panel (05/02/2024 6:53 AM EST) Sodium 142 133 - 145 mmol/L LAB CHEMISTRY METHOD 05/02/2024 9:20 AM EST [facility] Potassium 4.4 3.5 - 5.5 mmol/L LAB CHEMISTRY METHOD 05/02/2024 9:20 AM EST [facility] Chloride 108 96 - 110 mmol/L LAB CHEMISTRY METHOD 05/02/2024 9:20 AM EST [facility] CO2 29 21 - 32 mmol/L LAB CHEMISTRY METHOD 05/02/2024 9:20 AM EST [facility] Anion Gap 5 3 - 11 LAB CHEMISTRY METHOD 05/02/2024 9:20 AM [facility] Glucose 96 70 - 100 mg/dL LAB CHEMISTRY METHOD 05/02/2024 9:20 AM [facility] BUN 4(L) 5 - 25 mg/dL LAB CHEMISTRY METHOD 05/02/2024 9:20 AM [facility] Creatinine 0.68(L) 0.70 - 1.30 mg/dL LAB CHEMISTRY METHOD 05/02/2024 9:20 AM [facility] eGFR 121 >=60 mL/min/1. 73m2 LAB CHEMISTRY METHOD 05/02/2024 9:20 AM [facility] Comment:Calculation based on the Chronic Kidney Disease Epidemiology Collaboration (CKD-EPI) equation refit without adjustment for race. BUN/Creatinine Ratio 5.9 LAB CHEMISTRY METHOD 05/02/2024 9:20 AM [facility] Calcium 9.4 8.5 - 10.5 mg/dL LAB CHEMISTRY METHOD 05/02/2024 9:20 AM [facility] Blood Venous blood specimen / Unknown 05/02/2024 6:53 AM EST 05/02/2024 8:16 AM EST us Akhil Cintron MD LAB BLOOD ORDERABLES Final Resul t [facility] [address] [place] [address], documented in this encounter Visit Diagnoses Diagnosis Hypo-osmolality and hyponatremia documented in this encounter Care Teams Customer Service Leader Relationship Specialty Start Date End Date Akhil Cintron MD [address] [facility] [address] [place] [facility] [place], [place] PCP - General Internal Medicine 07/04/24 documented as of this encounter
--- OUTSIDE RECORDS SUMMARY | 2025-02-18 07:43 | XMS_ITS | Encounter Summary ---
Author Organization [facility] Address [address] [place] [address] Care Team Providers Care Driller And Broacher Name Role Phone Akhil Cintron MD Primary Care Provider [phone] Encounter Details Date Type Department Care Team (Late st Contact Info) Description 01/16/2025 Lab Requisition [facility] - Main Lab [address] [facility] [place] [address] Akhil Cintron MD [address] [place] [address] [address] [place], [place] Hypo-osmolality and hyponatremia Social History Tobacco [...] Associated Diagnosis Comments BASIC METABOLIC PANEL Routine 01/16/2025 6:25 AM EDT Hypo-osmolality and hyponatremia documented in this encounter Results * (ABNORMAL) Basic metabolic panel (01/16/2025 6:25 AM EDT) Sodium 141 133 - 145 mmol/L LAB CHEMISTRY METHOD 01/16/2025 8:15 AM EDT [facility] Potassium 4.3 3.5 - 5.5 mmol/L LAB CHEMISTRY METHOD 01/16/2025 8:15 AM T [facility] Chloride 106 96 - 110 mmol/L LAB CHEMISTRY METHOD 01/16/2025 8:15 AM EDT [facility] CO2 32 21 - 32 mmol/L LAB CHEMISTRY METHOD 01/16/2025 8:15 AM EDT [facility] Anion Gap 3 3 - 11 LAB CHEMISTRY METHOD 01/16/2025 8:15 AM T [facility] Glucose 91 70 - 100 mg/dL LAB CHEMISTRY METHOD 01/16/2025 8:15 AM [facility] BUN 6 5 - 25 mg/dL LAB CHEMISTRY METHOD 01/16/2025 8:15 AM [facility] Creatinine 0.69(L) 0.70 - 1.30 mg/dL LAB CHEMISTRY METHOD 01/16/2025 8:15 AM T [facility] eGFR 120 >=60 mL/min/1. 73m2 LAB CHEMISTRY METHOD 01/16/2025 8:15 AM [facility] Comment:Calculation based on the Chronic Kidney Disease Epidemiology Collaboration (CKD-EPI) equation refit without adjustment for race. BUN/Creatinine Ratio 8.7 LAB CHEMISTRY METHOD 01/16/2025 8:15 AM [facility] Calcium 9.1 8.5 - 10.5 mg/dL LAB CHEMISTRY METHOD 01/16/2025 8:15 AM [facility] Blood Venous blood specimen / Unknown 01/16/2025 6:25 AM EDT 01/16/2025 7:41 AM EDT us Akhil Cintron MD LAB BLOOD ORDERABLES Final Resul t [facility] [address] [place] [address], documented in this encounter Visit Diagnoses Diagnosis Hypo-osmolality and hyponatremia documented in this encounter Care Teams Driller And Broacher Relationship Specialty Start Date End Date Akhil Cintron MD [address] [place] [address] Dr Marta [facility] [place] PCP - General Internal Medicine 07/04/24 documented as of this encounter
--- OUTSIDE RECORDS SUMMARY | 2025-02-18 07:43 | XMS_ITS | Encounter Summary ---
[facility] Address [address] [place] [address] Care Team Providers Care Executive Director Of Nursing Name Role Phone Akhil Cintron MD Primary Care Provider [phone] Encounter Details Date Type Department Care Team (Latest Contact Info) Description 07/18/[address] [facility] - Main Lab [address] [place] [address] Akhil Cintron MD [address] [place] [address] [address] [place], [place] Schizoaffective disorder, bipolar type (CMS/HCC V24, CMS/HCC [...] Associated Diagnosis Comments BASIC METABOLIC PANEL Routine 07/18/2024 5:56 AM EST Schizoaffective disorder, bipolar type (CMS/HCC) documented in this encounter Results * (ABNORMAL) Basic metabolic panel (07/18/2024 5:56 AM EST) Sodium 140 133 - 145 mmol/L LAB CHEMISTRY METHOD 07/18/2024 7:33 AM EST [facility] Potassium 3.8 3.5 - 5.5 mmol/L LAB CHEMISTRY METHOD 07/18/2024 7:33 AM EST [facility] Chloride 104 96 - 110 mmol/L LAB CHEMISTRY METHOD 07/18/2024 7:33 AM EST [facility] CO2 32 21 - 32 mmol/L LAB CHEMISTRY METHOD 07/18/2024 7:33 AM [facility] Anion Gap 4 3 - 11 LAB CHEMISTRY METHOD 07/18/2024 7:33 AM [facility] Glucose 89 70 - 100 mg/dL LAB CHEMISTRY METHOD 07/18/2024 7:33 AM [facility] BUN 3(L) 5 - 25 mg/dL LAB CHEMISTRY METHOD 07/18/2024 7:33 AM [facility] Creatinine 0.58(L) 0.70 - 1.30 mg/dL LAB CHEMISTRY METHOD 07/18/2024 7:33 AM [facility] eGFR 126 >=60 mL/min/1. 73m2 LAB CHEMISTRY METHOD 07/18/2024 7:33 AM [facility] Comment:Calculation based on the Chronic Kidney Disease Epidemiology Collaboration (CKD-EPI) equation refit without adjustment for race. BUN/Creatinine Ratio 5.2 LAB CHEMISTRY METHOD 07/18/2024 7:33 AM [facility] Calcium 9.1 8.5 - 10.5 mg/dL LAB CHEMISTRY METHOD 07/18/2024 7:33 AM [facility] Blood Venous blood specimen / Unknown 07/18/2024 5:56 AM EST 07/18/2024 6:57 AM EST us Akhil Cintron MD LAB BLOOD ORDERABLES Final Resul t [facility] [address] [place] [address], documented in this encounter Visit Diagnoses Diagnosis Schizoaffective disorder, bipolar type (CMS/[facility] V24, CMS/HCC V28) Schizoaffective disorder, unspecified condition documented in this encounter Care Teams Executive Director Of Nursing Relationship Specialty Start Date End Date Akhil Cintron MD [address] [place] [address] [address] [place] [address] [place] PCP - General Internal Medicine 07/04/24 documented as of this encounter
--- OUTSIDE RECORDS SUMMARY | 2025-02-18 07:43 | XMS_ITS | Encounter Summary ---
Author Organization [facility] Address [address] [place] [address] Care Team Providers Care Momd Teacher Name Role Phone Akhil Cintron MD Primary Care Provider [phone] Encounter Details Date Type Department Care Team (Late st Contact Info) Description 12/05/2024 Lab Requisition [facility] Lab 299 [facility] [place] [address] Akhil Cintron MD [address] [place] [address] Dr [address] [place], [place] Hypo-osmolality and hyponatremia Social History Tobacco [...] Associated Diagnosis Comments BASIC METABOLIC PANEL Routine 12/05/2024 12:25 PM EDT Hypo-osmolality and hyponatremia documented in this encounter Results * (ABNORMAL) Basic metabolic panel (12/05/2024 12:25 PM EDT) Sodium 142 133 - 145 mmol/L LAB CHEMISTRY METHOD 12/05/2024 4:[address] [facility] Potassium 3.5 3.5 - 5.5 mmol/L LAB CHEMISTRY METHOD 12/05/2024 4:[address] [facility] Chloride 107 96 - 110 mmol/L LAB CHEMISTRY METHOD 12/05/2024 4:[address] [facility] CO2 28 21 - 32 mmol/L LAB CHEMISTRY METHOD 12/05/2024 4:[address] [facility] Anion Gap 7 3 - 11 LAB CHEMISTRY METHOD 12/05/2024 4:[address] [facility] Glucose 106(H) 70 - 100 mg/dL LAB CHEMISTRY METHOD 12/05/2024 4:27 PM [facility] BUN 5 5 - 25 mg/dL LAB CHEMISTRY METHOD 12/05/2024 4:27 PM [facility] Creatinine 0.60(L) 0.70 - 1.30 mg/dL LAB CHEMISTRY METHOD 12/05/2024 4:[address] [facility] eGFR 125 >=60 mL/min/1. 73m2 LAB CHEMISTRY METHOD 12/05/2024 4:[address] [facility] Comment:Calculation based on the Chronic Kidney Disease Epidemiology Collaboration (CKD-EPI) equation refit without adjustment for race. BUN/Creatinine Ratio 8.3 LAB [facility] Calcium 9.2 8.5 - 10.5 mg/dL LAB CHEMISTRY METHOD 12/05/2024 4:27 PM [facility] Blood Venous blood specimen / Unknown 12/05/2024 12:25 PM EDT 12/05/2024 3:23 PM EDT us Akhil Cintron MD LAB BLOOD ORDERABLES Final Resul t [facility] [address] [place] [address], documented in this encounter Visit Diagnoses Diagnosis Hypo-osmolality and hyponatremia documented in this encounter Care Teams Momd Teacher Relationship Specialty Start Date End Date Akhil Cintron MD [address] [place] [address] Dr Mart[address] [place] [address] [place] PCP - General Internal Medicine 07/04/24 documented as of this encounter
--- OUTSIDE RECORDS SUMMARY | 2025-02-18 07:43 | XMS_ITS | Encounter Summary ---
Author Organization [facility]na [facility] Address [address] [place] [address] Care Team Providers Care Reflesher Name Role Phone Akhil Cintron MD Primary Care Provider [phone] Encounter Details Date Type Department Care Team (Late st Contact Info) Description 02/06/2025 Lab Requisition [facility] - Main Lab 299 [facility] [place] [address] Akhil Cintron MD [address] [place] [address] Dr [address] [place], [place] Hypo-osmolality and hyponatremia Social History Tobacco [...] Associated Diagnosis Comments BASIC METABOLIC PANEL Routine 02/06/2025 6:50 AM EDT Hypo-osmolality and hyponatremia documented in this encounter Results * (ABNORMAL) Basic metabolic panel (02/06/2025 6:50 AM EDT) Sodium 138 133 - 145 mmol/L LAB CHEMISTRY METHOD 02/06/2025 8:[address] [facility] Potassium 4.1 3.5 - 5.5 mmol/L LAB CHEMISTRY METHOD 02/06/2025 8:[address] [facility] Chloride 105 96 - 110 mmol/L LAB CHEMISTRY METHOD 02/06/2025 8:[address] [facility] CO2 29 21 - 32 mmol/L LAB CHEMISTRY METHOD 02/06/2025 8:[address] [facility] Anion Gap 4 3 - 11 LAB CHEMISTRY METHOD 02/06/2025 8:22 AM [facility] Glucose 89 70 - 100 mg/dL LAB CHEMISTRY METHOD 02/06/2025 8:22 AM [facility] BUN 4(L) 5 - 25 mg/dL LAB CHEMISTRY METHOD 02/06/2025 8:22 AM [facility] Creatinine 0.52(L) 0.70 - 1.30 mg/dL LAB CHEMISTRY METHOD 02/06/2025 8:22 AM [facility] eGFR 131 >=60 mL/min/1. 73m2 LAB CHEMISTRY METHOD 02/06/2025 8:22 AM [facility] Comment:Calculation based on the Chronic Kidney Disease Epidemiology Collaboration (CKD-EPI) equation refit without adjustment for race. BUN/Creatinine Ratio 7.7 LAB CHEMISTRY METHOD 02/06/2025 8:22 AM [facility] Calcium 9.0 8.5 - 10.5 mg/dL LAB CHEMISTRY METHOD 02/06/2025 8:22 AM [facility] Blood Venous blood specimen / Unknown 02/06/2025 6:50 AM EDT 02/06/2025 7:51 AM EDT us Akhil Cintron MD LAB BLOOD ORDERABLES Final Resul t [facility] [address] [place] [address], documented in this encounter Visit Diagnoses Diagnosis Hypo-osmolality and hyponatremia documented in this encounter Care Teams Reflesher Relationship Specialty Start Date End Date Akhil Cintron MD [address] [place] [address] Dr Marta [address] [place] [address] [place] PCP - General Internal Medicine 07/04/24 documented as of this encounter
--- OUTSIDE RECORDS SUMMARY | 2025-02-18 07:43 | XMS_ITS | Encounter Summary ---
Author Organization [facility]na [facility] Address [address] [place] [address] Care Team Providers Care Service Department Manager Name Role Phone Akhil Cintron MD Primary Care Provider [phone] Encounter Details Date Type Department Care Team (Late st Contact Info) Description 11/21/[address] [facility] - Main Lab 299 [facility] [employer] [place] [address] Akhil Cintron MD [address] [place] [address] Dr [address] [place], [place] Hypo-osmolality and hyponatremia Social History Tobacco [...] Associated Diagnosis Comments BASIC METABOLIC PANEL Routine 11/21/2024 6:15 AM EDT Hypo-osmolality and hyponatremia documented in this encounter Results * (ABNORMAL) Basic metabolic panel (11/21/2024 6:15 AM EDT) Sodium 135 133 - 145 mmol/L LAB CHEMISTRY METHOD 11/21/2024 8:27 AM EDT [facility] Potassium 4.1 3.5 - 5.5 mmol/L LAB CHEMISTRY METHOD 11/21/2024 8:27 AM [facility] Chloride 103 96 - 110 mmol/L LAB CHEMISTRY METHOD 11/21/2024 8:27 AM [facility] CO2 28 21 - 32 mmol/L LAB CHEMISTRY METHOD 11/21/2024 8:27 AM EDT [facility] Anion Gap 4 3 - 11 LAB CHEMISTRY METHOD 11/21/2024 8:27 AM T [facility] Glucose 96 70 - 100 mg/dL LAB CHEMISTRY METHOD 11/21/2024 8:27 AM [facility] BUN 5 5 - 25 mg/dL LAB CHEMISTRY METHOD 11/21/2024 8:27 AM [facility] Creatinine 0.52(L) 0.70 - 1.30 mg/dL LAB CHEMISTRY METHOD 11/21/2024 8:27 AM [facility] eGFR 131 >=60 mL/min/1. 73m2 LAB CHEMISTRY METHOD 11/21/2024 8:27 AM [facility] Comment:Calculation based on the Chronic Kidney Disease Epidemiology Collaboration (CKD-EPI) equation refit without adjustment for race. BUN/Creatinine Ratio 9.6 LAB CHEMISTRY METHOD 11/21/2024 8:27 AM [facility] Calcium 9.4 8.5 - 10.5 mg/dL LAB CHEMISTRY METHOD 11/21/2024 8:27 AM [facility] Blood Venous blood specimen / Unknown 11/21/2024 6:15 AM EDT 11/21/2024 7:34 AM EDT us Akhil Cintron MD LAB BLOOD ORDERABLES Final Resul t [facility] [address] [place] [address], documented in this encounter Visit Diagnoses Diagnosis Hypo-osmolality and hyponatremia documented in this encounter Care Teams Service Department Manager Relationship Specialty Start Date End Date Akhil Cintron MD [address] [place] [address] Dr Lozano [place] PCP - General Internal Medicine 07/04/24 documented as of this encounter
--- OUTSIDE RECORDS SUMMARY | 2025-02-18 07:43 | XMS_ITS | Encounter Summary ---
[facility] Address [address] [place] [address] Care Team Providers Care Store Sales Manager Name Role Phone Akhil Cintron MD Primary Care Provider [phone] Encounter Details Date Type Department Care Team (Late st Contact Info) Description 05/28/2024 Lab Requisition [facility] - Main Lab [address] [place] [address] Akhil Cintron MD [address] [place] [address] Dr [address] [place], [place] Hypo-osmolality and hyponatremia Social History Tobacco [...] Procedure Name Priority Date/Time Associated Diagnosis Comments COMPREHENSIVE METABOLIC PANEL Routine 05/28/2024 6:35 AM EST Hypo-osmolality and hyponatremia documented in this encounter Results * (ABNORMAL) Comprehensive metabolic panel (05/28/2024 6:35 AM EST) Sodium 138 133 - 145 mmol/L LAB CHEMISTRY METHOD 05/28/2024 8:12 AM EST [facility] Potassium 3.8 3.5 - 5.5 mmol/L LAB CHEMISTRY METHOD 05/28/2024 8:12 AM EST [facility] Chloride 106 96 - 110 mmol/L LAB CHEMISTRY METHOD 05/28/2024 8:12 AM EST [facility] CO2 31 21 - 32 mmol/L LAB CHEMISTRY METHOD 05/28/2024 8:12 AM EST [facility] Anion Gap 1(L) 3 - 11 LAB CHEMISTRY METHOD 05/28/2024 8:12 AM [facility] Glucose 98 70 - 100 mg/dL LAB CHEMISTRY METHOD 05/28/2024 8:12 AM [facility] BUN 6 5 - 25 mg/dL LAB CHEMISTRY METHOD 05/28/2024 8:12 AM [facility] Creatinine 0.60(L) 0.70 - 1.30 mg/dL LAB CHEMISTRY METHOD 05/28/2024 8:12 AM [facility] eGFR 126 >=60 mL/min/1. 73m2 LAB CHEMISTRY METHOD 05/28/2024 8:12 AM [facility] Comment:Calculation based on the Chronic Kidney Disease Epidemiology Collaboration (CKD-EPI) equation refit without adjustment for race. BUN/Creatinine Ratio 10.0 LAB CHEMISTRY METHOD 05/28/2024 8:12 AM [facility] Calcium 9.2 8.5 - 10.5 mg/dL LAB CHEMISTRY METHOD 05/28/2024 8:12 AM [facility] AST (SGOT) 13 10 - 42 unit/L LAB CHEMISTRY METHOD 05/28/2024 8:12 AM [facility] ALT (SGPT) 30 10 - 60 unit/L LAB CHEMISTRY METHOD 05/28/2024 8:12 AM [facility] Alkaline Phosphatase 68 42 - 121 unit/L LAB CHEMISTRY METHOD 05/28/2024 8:12 AM [facility] Total Protein 6.4 6.0 - 8.0 g/dL LAB CHEMISTRY METHOD 05/28/2024 8:12 AM [facility] Albumin 3.9 3.2 - 5.0 g/dL LAB CHEMISTRY METHOD 05/28/2024 8:12 AM [facility] Total Bilirubin 0.4 0.0 - 1.4 mg/dL LAB CHEMISTRY METHOD 05/28/2024 8:12 AM EST [facility] Blood Venous blood specimen / Unknown 05/28/2024 6:35 AM EST 05/28/2024 7:14 AM EST us Akhil Cintron MD LAB BLOOD ORDERABLES Final Resul t [facility] [address] [place] [address], documented in this encounter Visit Diagnoses Diagnosis Hypo-osmolality and hyponatremia documented in this encounter Care Teams Store Sales Manager Relationship Specialty Start Date End Date Akhil Cintron MD [address] [place] [address] Dr [address] [place] PCP - General Internal Medicine 07/04/24 documented as of this encounter
--- OUTSIDE RECORDS SUMMARY | 2025-02-18 07:43 | XMS_ITS | Encounter Summary ---
[facility] Address [address] [place] [address] Care Team Providers Care News Content Specialist Name Role Phone Akhil Cintron MD Primary Care Provider [phone] Encounter Details Date Type Department Care Team (Late st Contact Info) Description 08/07/2024 Lab Requisition [facility] - Main Lab [address] [place] [address] Akhil Cintron MD [address] [place] [address] [address] [place], [place] Hypo-osmolality and hyponatremia Social History Tobacco [...] Associated Diagnosis Comments BASIC METABOLIC PANEL Routine 08/07/2024 6:40 AM EST Hypo-osmolality and hyponatremia documented in this encounter Results * (ABNORMAL) Basic metabolic panel (08/07/2024 6:40 AM EST) Sodium 143 133 - 145 mmol/L LAB CHEMISTRY METHOD 08/07/2024 8:08 AM EST [facility] Potassium 4.4 3.5 - 5.5 mmol/L LAB CHEMISTRY METHOD 08/07/2024 8:08 AM EST [facility] Chloride 108 96 - 110 mmol/L LAB CHEMISTRY METHOD 08/07/2024 8:08 AM EST [facility] CO2 30 21 - 32 mmol/L LAB CHEMISTRY METHOD 08/07/2024 8:08 AM EST [facility] Anion Gap 5 3 - 11 LAB CHEMISTRY METHOD 08/07/2024 8:08 AM [facility] Glucose 96 70 - 100 mg/dL LAB CHEMISTRY METHOD 08/07/2024 8:08 AM [facility] BUN 3(L) 5 - 25 mg/dL LAB CHEMISTRY METHOD 08/07/2024 8:08 AM [facility] Creatinine 0.61(L) 0.70 - 1.30 mg/dL LAB CHEMISTRY METHOD 08/07/2024 8:08 AM [facility] eGFR 125 >=60 mL/min/1. 73m2 LAB CHEMISTRY METHOD 08/07/2024 8:08 AM [facility] Comment:Calculation based on the Chronic Kidney Disease Epidemiology Collaboration (CKD-EPI) equation refit without adjustment for race. BUN/Creatinine Ratio 4.9 LAB CHEMISTRY METHOD 08/07/2024 8:08 AM [facility] Calcium 9.4 8.5 - 10.5 mg/dL LAB CHEMISTRY METHOD 08/07/2024 8:08 AM [facility] Blood Venous blood specimen / Unknown 08/07/2024 6:40 AM EST 08/07/2024 7:32 AM EST us Akhil Cintron MD LAB BLOOD ORDERABLES Final Resul t [facility] [address] [place] [address], documented in this encounter Visit Diagnoses Diagnosis Hypo-osmolality and hyponatremia documented in this encounter Care Teams News Content Specialist Relationship Specialty Start Date End Date Akhil Cintron MD [address] [facility] [address] Lozano [facility] [place] PCP - General Internal Medicine 07/04/24 documented as of this encounter
--- OUTSIDE RECORDS SUMMARY | 2025-02-18 07:43 | XMS_ITS | Encounter Summary ---
Author Organization [facility] Address [address] [place] [address] Care Team Providers Care Golf Course Equipment Operator Name Role Phone Akhil Cintron MD Primary Care Provider [phone] Encounter Details Date Type Department Care Team (Late st Contact Info) Description 10/16/2024 Lab Requisition [facility] - Main Lab 299 [facility] [place] [address] Akhil Cintron MD [address] [place] [address] [address] [place], [place] Unspecified psychosis not due to a [...] Associated Diagnosis Comments BASIC METABOLIC PANEL Routine 10/16/2024 6:20 AM EDT Unspecified psychosis not due to a substance or known physiological condition (CMS/HCC V24, CMS/HCC V28) documented in this encounter Results * (ABNORMAL) Basic metabolic panel (10/16/2024 6:20 AM EDT) Sodium 138 133 - 145 mmol/L LAB CHEMISTRY METHOD 10/16/2024 8:26 AM EDT [facility] Potassium 4.0 3.5 - 5.5 mmol/L LAB CHEMISTRY METHOD 10/16/2024 8:26 AM EDT [facility] Chloride 105 96 - 110 mmol/L LAB CHEMISTRY METHOD 10/16/2024 8:26 AM T [facility] CO2 27 21 - 32 mmol/L LAB CHEMISTRY METHOD 10/16/2024 8:26 AM [facility] Anion Gap 6 3 - 11 LAB CHEMISTRY METHOD 10/16/2024 8:26 AM [facility] Glucose 94 70 - 100 mg/dL LAB CHEMISTRY METHOD 10/16/2024 8:26 AM [facility] BUN 7 5 - 25 mg/dL LAB CHEMISTRY METHOD 10/16/2024 8:26 AM [facility] Creatinine 0.54(L) 0.70 - 1.30 mg/dL LAB CHEMISTRY METHOD 10/16/2024 8:26 AM [facility] eGFR 129 >=60 mL/min/1. 73m2 LAB CHEMISTRY METHOD 10/16/2024 8:26 AM [facility] Comment:Calculation based on the Chronic Kidney Disease Epidemiology Collaboration (CKD-EPI) equation refit without adjustment for race. BUN/Creatinine Ratio 13.0 LAB CHEMISTRY METHOD 10/16/2024 8:26 AM [facility] Calcium 9.1 8.5 - 10.5 mg/dL LAB CHEMISTRY METHOD 10/16/2024 8:26 AM [facility] Blood Venous blood specimen / Unknown 10/16/2024 6:20 AM EDT 10/16/2024 7:25 AM EDT us Akhil Cintron MD LAB BLOOD ORDERABLES Final Resul t [facility] [address] [place] [address], documented in this encounter Visit Diagnoses Diagnosis Unspecified psychosis not due to a substance or known physiological condition (CMS/HCC V24, CMS/HCC V28) documented in this encounter Care Teams Golf Course Equipment Operator Relationship Specialty Start Date End Date Akhil Cintron MD [address] [place] [address] Dr Marta [facility] [place], [place] PCP - General Internal Medicine 07/04/24 documented as of this encounter
--- OUTSIDE RECORDS SUMMARY | 2025-02-18 07:43 | XMS_ITS | Encounter Summary ---
Author Organization [facility]na [facility] Address [address] [place] [address] Care Team Providers Care Dobby Loom Chain Pegger Name Role Phone Akhil Cintron MD Primary Care Provider [phone] Encounter Details Date Type Department Care Team (Late st Contact Info) Description 12/11/[address] [facility] - Main Lab 299 [facility] [place] [address] Akhil Cintron MD [address] [place] [address] [address] [place], [place] Encounter for therapeutic drug level monitoring Social History Tobacco Use Types Packs/Day Years [...] Procedure Name Priority Date/Time Associated Diagnosis Comments LEVETIRACETAM LEVEL Routine 12/11/2024 6 :16 AM EDT Encounter for therapeutic drug level monitoring documented in this encounter Results * Levetiracetam level (12/11/2024 6:16 AM EDT) Levetiracetam 7.8 3.0 - 60.0 ug/mL 12/15/2024 6:00 AM EDT [facility] Comment: Steady state trough serum or plasma levels following doses of 1000 to 3000 mg/Day: 3 to 37 ug/mL. The same dosage regimen will typically result in peak levels of 10 to 60 ug/mL, at approximately 1.5 hours post dose. If applicable, any drug confirmation testing reported here was developed and the performance characteristics determined by [facility]. This confirmation testing has not been cleared or approved by the FDA. The laboratory is regulated under CLIA as qualified to perform high-complexity testing. This test is used for patient testing purposes. It should not be regarded as investigational or for research. Test performed at [facility], [address], [place] [address] Nancy Dolan MD, PhD - Scrap Drop Operator Blood Venous blood specimen / Unknown 12/11/2024 6:16 AM EDT 12/11/2024 7:29 AM EDT us Akhil Cintron MD LAB BLOOD ORDERABLES Final Resul t [facility] [address] [place] [address] documented in this encounter Visit Diagnoses Diagnosis Encounter for therapeutic drug level monitoring documented in this encounter Care Teams Dobby Loom Chain Pegger Relationship Specialty Start Date End Date Akhil Cintron MD [address] [place] [address] Dr [address] [place] PCP - General Internal Medicine 07/04/24 documented as of this encounter
--- OUTSIDE RECORDS SUMMARY | 2025-02-18 07:43 | XMS_ITS | Encounter Summary ---
Author Organization [employer] Address [address] [place] [address] Care Team Providers Care Lavatory Attendant Name Role Phone Akhil Cintron MD Primary Care Provider [phone] Encounter Details Date Type Department Care Team (Late st Contact Info) Description 06/13/[address] [facility] - Main Lab [address] [place] [address] Akhil Cintron MD [address] [place] [address] [address] [place] [facility] [place] drug therapy; Malignant neoplasm of prostate (CMS/HCC V24, CMS/HCC V28); Encounter for screening for malignant neoplasm of prostate; Hypo-osmolality and hyponatremia; Schizoaffective disorder, bipolar type (CMS/HCC V24, CMS/HCC [...] Procedure Name Priority Date/Time Associated Diagnosis Comments SST - GOLD Routine 06/13/2024 5:25 AM EST Other [place] [facility] ([facility] drug therapy Malignant neoplasm of prostate (CMS/HCC) Encounter for screening for malignant neoplasm of prostate Hypo-osmolality and hyponatremia Schizoaffective disorder, bipolar type (CMS/HCC) LIPID PANEL WITH REFLEX TO DIRECT LDL Routine 06/13/2024 5:25 AM EST Other termite inspector (current) drug therapy Malignant neoplasm of prostate (CMS/HCC) Encounter for screening for malignant neoplasm of prostate Hypo-osmolality and hyponatremia Schizoaffective disorder, bipolar type (CMS/HCC) PROSTATE SPECIFIC ANTIGEN DIAGNOSTIC Routine 06/13/2024 5:25 AM EST [facility] [place] [facility] drug therapy Malignant neoplasm of prostate (CMS/HCC) Encounter for screening for malignant neoplasm of prostate Hypo-osmolality and hyponatremia Schizoaffective disorder, bipolar type (CMS/HCC) BILIRUBIN, DIRECT Routine 06/13/2024 5:2 5 AM EST [facility] [place] [facility] drug therapy Malignant neoplasm of prostate (CMS/HCC) Encounter for screening for malignant neoplasm of prostate Hypo-osmolality and hyponatremia Schizoaffective disorder, bipolar type (CMS/HCC) AMMONIA Routine 06/13/2024 5:25 AM EST Other termite inspector (current) drug therapy Malignant neoplasm of prostate (CMS/HCC) Encounter for screening for malignant neoplasm of prostate Hypo-osmolality and hyponatremia Schizoaffective disorder, bipolar type (CMS/HCC) COMPREHENSIVE METABOLIC PANEL Routine 06/13/2024 5:25 AM EST Other termite inspector (current) drug therapy Malignant neoplasm of prostate (CMS/HCC) Encounter for screening for malignant neoplasm of prostate Hypo-osmolality and hyponatremia Schizoaffective disorder, bipolar type (CMS/HCC) documented in this encounter Results * SST tube (06/13/2024 5:25 AM EST) Pathologist [facility] Extra Tube Hold for add-ons. 07/02/2024 9:04 AM EST [facility] Comment:Auto resulted. Blood Venous blood specimen / Unknown 06/13/2024 5:25 AM EST 06/13/2024 5:52 AM EST us Akhil Cintron MD LAB BLOOD ORDERABLES Final Resul t [facility] [address] [place] [address], * Bilirubin, direct (06/13/2024 5:25 AM EST) Bilirubin, Direct <0.1 0.0 - 0.3 mg/dL LAB CHEMISTRY METHOD 06/13/2024 8:35 AM EST [facility] Blood Venous blood specimen / Unknown 06/13/2024 5:25 AM EST 06/13/2024 5:52 AM EST us Akhil Cintron MD LAB BLOOD ORDERABLES Final Resul t Performing Organization Address City/[facility]/ZIP Co de Phone Number [facility] [address] [place] [address], [place] [phone] * Prostate specific antigen diagnostic (06/13/2024 5:25 AM EST) PSA 0.39 0.00 - 4.00 ng/mL LAB CHEMISTRY METHOD 06/13/2024 11:04 AM EST [facility] Blood Venous blood specimen / Unknown 06/13/2024 5:25 AM EST 06/13/2024 5:52 AM EST Narrative [facility] - 06/13/2024 11:04 AM EST The Siemens Advia Centaur Chemiluminescent Immunoassay is used. Results obtained with different assay methods or kits cannot be used interchangeably. Results cannot be interpreted as absolute evidence of the presence or absence of malignant disease. us Akhil Cintron MD LAB BLOOD ORDERABLES Final Resul t Performing Organization Address City/[facility]/ZIP Co de Phone Number [facility] [address] [place] [address], [place] [phone] * Ammonia (06/13/2024 5:25 AM EST) Ammonia 28 11 - 35 mcmol/L LAB CHEMISTRY METHOD 06/13/2024 7:27 AM EST [facility] Blood Venous blood specimen / Unknown 06/13/2024 5:25 AM EST 06/13/2024 5:52 AM EST us Akhil Cintron MD LAB BLOOD ORDERABLES Final Resul t [facility] [address] [place] [address], [place] [phone] * (ABNORMAL) Lipid panel with reflex to direct LDL (06/13/2024 5:25 AM EST) Cholesterol 124 0 - 200 mg/dL LAB CHEMISTRY METHOD 06/13/2024 7:28 AM EST [facility] Triglycerides 151(H) 0 - 150 mg/dL LAB CHEMISTRY METHOD 06/13/2024 7:28 AM EST [facility] HDL 52 >=40 mg/dL LAB CHEMISTRY METHOD 06/13/2024 7:28 AM EST [facility] LDL Calculated 42 0 - 100 mg/dL LAB CHEMISTRY METHOD 06/13/2024 7:28 AM [facility] VLDL Cholesterol Will 30.2 mg/dL LAB CHEMISTRY METHOD 06/13/2024 7:28 AM [facility] Non HDL Chol. (LDL+VLDL) 72 <145 mg/dL LAB CHEMISTRY METHOD 06/13/2024 7:28 AM EST [facility] Chol/HDL Ratio 2.4 0.0 - 4.4 LAB CHEMISTRY METHOD 06/13/2024 7:28 AM [facility] Blood Venous blood specimen / Unknown 06/13/2024 5:25 AM EST 06/13/2024 5:52 AM EST Akhil Cintron MD LAB BLOOD ORDERABLES Final Resul t Performing Organization Address [facility]/ZIP Co de Phone Number [facility] [address] [place] [address], [place] [phone] * (ABNORMAL) Comprehensive metabolic panel (06/13/2024 5:25 AM EST) Sodium 134 133 - 145 mmol/L LAB CHEMISTRY METHOD 06/13/2024 7:28 AM EST [facility] Potassium 3.8 3.5 - 5.5 mmol/L LAB CHEMISTRY METHOD 06/13/2024 7:28 AM [facility] Chloride 105 96 - 110 mmol/L LAB CHEMISTRY METHOD 06/13/2024 7:28 AM [facility] CO2 26 21 - 32 mmol/L LAB CHEMISTRY METHOD 06/13/2024 7:28 AM [facility] Anion Gap 3 3 - 11 LAB CHEMISTRY METHOD 06/13/2024 7:28 AM [facility] Glucose 91 70 - 100 mg/dL LAB CHEMISTRY METHOD 06/13/2024 7:28 AM [facility] BUN 3(L) 5 - 25 mg/dL LAB CHEMISTRY METHOD 06/13/2024 7:28 AM [facility] Creatinine 0.64(L) 0.70 - 1.30 mg/dL LAB CHEMISTRY METHOD 06/13/2024 7:28 AM [facility] eGFR 123 >=60 mL/min/1. 73m2 LAB CHEMISTRY METHOD 06/13/2024 7:28 AM [facility] Comment:Calculation based on the Chronic Kidney Disease Epidemiology Collaboration (CKD-EPI) equation refit without adjustment for race. BUN/Creatinine Ratio 4.7 LAB CHEMISTRY METHOD 06/13/2024 7:28 AM [facility] Calcium 8.4(L) 8.5 - 10.5 mg/dL LAB CHEMISTRY METHOD 06/13/2024 7:28 AM [facility] AST (SGOT) 20 10 - 42 unit/L LAB CHEMISTRY METHOD 06/13/2024 7:28 AM [facility] ALT (SGPT) 43 10 - 60 unit/L LAB CHEMISTRY METHOD 06/13/2024 7:28 AM [facility] Alkaline Phosphatase 74 42 - 121 unit/L LAB CHEMISTRY METHOD 06/13/2024 7:28 AM [facility] Total Protein 6.2 6.0 - 8.0 g/dL LAB CHEMISTRY METHOD 06/13/2024 7:28 AM EST [facility] Albumin 3.7 3.2 - 5.0 g/dL LAB CHEMISTRY METHOD 06/13/2024 7:28 AM EST [facility] Total Bilirubin 0.4 0.0 - 1.4 mg/dL LAB CHEMISTRY METHOD 06/13/2024 7:28 AM EST [facility] Blood Venous blood specimen / Unknown 06/13/2024 5:25 AM EST 06/13/2024 5:52 AM EST us Akhil Cintron MD LAB BLOOD ORDERABLES Final Resul t [facility] [address] [place] [address], [place] [phone] documented in this encounter Visit Diagnoses Diagnosis Other termite inspector (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
--- OUTSIDE RECORDS SUMMARY | 2025-02-18 07:43 | XMS_ITS | Encounter Summary ---
Author Organization [facility] Address [address] [place] [address] Care Team Providers Care Research Clerk Name Role Phone Akhil Cintron MD Primary Care Provider Encounter Details Date Type Department Care Team (Late st Contact Info) Description 05/09/2024 Lab Requisition [facility] - Main Lab [address] [place] [address] Akhil Cintron MD [address] [place] [address] Dr [address] [place] Hypo-osmolality and hyponatremia; Schizoaffective disorder, bipolar type [...] Associated Diagnosis Comments BASIC METABOLIC PANEL Routine 05/09/2024 7:03 AM EST Hypo-osmolality and hyponatremia Schizoaffective disorder, bipolar type (CMS/HCC) documented in this encounter Results * (ABNORMAL) Basic metabolic panel (05/09/2024 7:03 AM EST) Sodium 142 133 - 145 mmol/L LAB CHEMISTRY METHOD 05/09/2024 8:23 AM EST [facility] Potassium 4.3 3.5 - 5.5 mmol/L LAB CHEMISTRY METHOD 05/09/2024 8:23 AM EST [facility] Chloride 111(H) 96 - 110 mmol/L LAB CHEMISTRY METHOD 05/09/2024 8:23 AM EST [facility] CO2 27 21 - 32 mmol/L LAB CHEMISTRY METHOD 05/09/2024 8:23 AM [facility] Anion Gap 4 3 - 11 LAB CHEMISTRY METHOD 05/09/2024 8:23 AM [facility] Glucose 102(H) 70 - 100 mg/dL LAB CHEMISTRY METHOD 05/09/2024 8:23 AM [facility] BUN 3(L) 5 - 25 mg/dL LAB CHEMISTRY METHOD 05/09/2024 8:23 AM [facility] Creatinine 0.52(L) 0.70 - 1.30 mg/dL LAB CHEMISTRY METHOD 05/09/2024 8:23 AM [facility] eGFR 131 >=60 mL/min/1. 73m2 LAB CHEMISTRY METHOD 05/09/2024 8:23 AM [facility] Comment:Calculation based on the Chronic Kidney Disease Epidemiology Collaboration (CKD-EPI) equation refit without adjustment for race. BUN/Creatinine Ratio 5.8 LAB CHEMISTRY METHOD 05/09/2024 8:23 AM [facility] Calcium 8.9 8.5 - 10.5 mg/dL LAB CHEMISTRY METHOD 05/09/2024 8:23 AM [facility] Blood Venous blood specimen / Unknown 05/09/2024 7:03 AM EST 05/09/2024 8:07 AM EST us Akhil Cintron MD LAB BLOOD ORDERABLES Final Resul t [facility] [address] [place] [address], [place] [phone] documented in this encounter Visit Diagnoses Diagnosis Hypo-osmolality and hyponatremia Schizoaffective disorder, bipolar type (CMS/HCC V24, CMS/HCC V28) Schizoaffective disorder, unspecified condition documented in this encounter Care Teams Research Clerk Relationship Specialty Start Date End Date Akhil Cintron MD [address] [place] [address] Dr Marta Guthrie [place] PCP - General Internal Medicine 07/04/24 documented as of this encounter
--- OUTSIDE RECORDS SUMMARY | 2025-02-18 07:43 | XMS_ITS | Encounter Summary ---
Author Organization [facility] Address [address] [place] [address] Care Team Providers Care Lab Asst Name Role Phone Akhil Cintron MD Primary Care Provider [phone] Encounter Details Date Type Department Care Team (Latest Contact Info) Description 04/18/[address] [facility] [address] [place] [address] Akhil Cintron MD [address] [place] [address] [address] [place], [place] Schizoaffective disorder, bipolar type (CMS/HCC V24, [...] Associated Diagnosis Comments BASIC METABOLIC PANEL Routine 04/18/2024 4:20 AM EST Schizoaffective disorder, bipolar type (CMS/HCC) documented in this encounter Results * Basic metabolic panel (04/18/2024 4:20 AM EST) Sodium 141 133 - 145 mmol/L LAB CHEMISTRY METHOD 04/18/2024 7:08 AM EST [facility] Potassium 3.8 3.5 - 5.5 mmol/L LAB CHEMISTRY METHOD 04/18/2024 7:08 AM EST [facility] Chloride 106 96 - 110 mmol/L LAB CHEMISTRY METHOD 04/18/2024 7:08 AM [facility] CO2 30 21 - 32 mmol/L LAB CHEMISTRY METHOD 04/18/2024 7:08 AM [facility] Anion Gap 5 3 - 11 LAB CHEMISTRY METHOD 04/18/2024 7:08 AM [facility] Glucose 82 70 - 100 mg/dL LAB CHEMISTRY METHOD 04/18/2024 7:08 AM [facility] BUN 7 5 - 25 mg/dL LAB CHEMISTRY METHOD 04/18/2024 7:08 AM [facility] Creatinine 0.75 0.70 - 1.30 mg/dL LAB CHEMISTRY METHOD 04/18/2024 7:08 AM [facility] eGFR 118 >=60 mL/min/1. 73m2 LAB CHEMISTRY METHOD 04/18/2024 7:08 AM [facility] Comment:Calculation based on the Chronic Kidney Disease Epidemiology Collaboration (CKD-EPI) equation refit without adjustment for race. BUN/Creatinine Ratio 9.3 LAB CHEMISTRY METHOD 04/18/2024 7:08 AM [facility] Calcium 9.2 8.5 - 10.5 mg/dL LAB CHEMISTRY METHOD 04/18/2024 7:08 AM [facility] Blood Venous blood specimen / Unknown 04/18/2024 4:20 AM EST 04/18/2024 6:05 AM EST us Akhil Cintron MD LAB BLOOD ORDERABLES Final Resul t [facility] [address] [place] [address], documented in this encounter Visit Diagnoses Diagnosis Schizoaffective disorder, bipolar type (CMS/HCC V24, CMS/HCC V28) Schizoaffective disorder, unspecified condition documented in this encounter Care Teams Lab Asst Relationship Specialty Start Date End Date Akhil Cintron MD [address] [place] [address] [place] [address] PCP - General Internal Medicine 07/04/24 documented as of this encounter
--- OUTSIDE RECORDS SUMMARY | 2025-02-18 07:43 | XMS_ITS | Encounter Summary ---
Author Organization [facility] Address [address] [place] [address] Care Team Providers Care Missile Inspector Name Role Phone Akhil Cintron MD Primary Care Provider [phone] Encounter Details Date Type Department Care Team (Late st Contact Info) Description 12/19/2024 Lab Requisition [facility] - Main Lab [address] [facility] [place] [address] Akhil Cintron MD [address] [place] [address] Dr [address] [place], [place] Hypo-osmolality and hyponatremia Social History Tobacco [...] Associated Diagnosis Comments BASIC METABOLIC PANEL Routine 12/19/2024 6:55 AM EDT Hypo-osmolality and hyponatremia documented in this encounter Results * (ABNORMAL) Basic metabolic panel (12/19/2024 6:55 AM EDT) Sodium 141 133 - 145 mmol/L LAB CHEMISTRY METHOD 12/19/2024 8:41 AM EDT [facility] Potassium 5.0 3.5 - 5.5 mmol/L LAB CHEMISTRY METHOD 12/19/2024 8:41 AM EDT [facility] Chloride 108 96 - 110 mmol/L LAB CHEMISTRY METHOD 12/19/2024 8:41 AM EDT [facility] CO2 32 21 - 32 mmol/L LAB CHEMISTRY METHOD 12/19/2024 8:41 AM EDT [facility] Anion Gap 1(L) 3 - 11 LAB CHEMISTRY METHOD 12/19/2024 8:41 AM [facility] Glucose 90 70 - 100 mg/dL LAB CHEMISTRY METHOD 12/19/2024 8:41 AM [facility] BUN 5 5 - 25 mg/dL LAB CHEMISTRY METHOD 12/19/2024 8:41 AM [facility] Creatinine 0.71 0.70 - 1.30 mg/dL LAB CHEMISTRY METHOD 12/19/2024 8:41 AM [facility] eGFR 119 >=60 mL/min/1. 73m2 LAB CHEMISTRY METHOD 12/19/2024 8:41 AM [facility] Comment:Calculation based on the Chronic Kidney Disease Epidemiology Collaboration (CKD-EPI) equation refit without adjustment for race. BUN/Creatinine Ratio 7.0 LAB CHEMISTRY METHOD 12/19/2024 8:41 AM [facility] Calcium 9.2 8.5 - 10.5 mg/dL LAB CHEMISTRY METHOD 12/19/2024 8:41 AM [facility] Blood Venous blood specimen / Unknown 12/19/2024 6:55 AM EDT 12/19/2024 7:16 AM EDT us Akhil Cintron MD LAB BLOOD ORDERABLES Final Resul t [facility] [address] [place] [address], documented in this encounter Visit Diagnoses Diagnosis Hypo-osmolality and hyponatremia documented in this encounter Care Teams Missile Inspector Relationship Specialty Start Date End Date Akhil Cintron MD [address] [place] [address] Dr Lozano [facility] [place] PCP - General Internal Medicine 07/04/24 documented as of this encounter
--- OUTSIDE RECORDS SUMMARY | 2025-02-18 07:43 | XMS_ITS | Encounter Summary ---
Author Organization [facility] Address [address] [place] [address] Care Team Providers Care Quality Control Microbiology Supervisor Name Role Phone Akhil Cintron MD Primary Care Provider [phone] Encounter Details Date Type Department Care Team (Late st Contact Info) Description 10/30/[address] [facility] - Main Lab [address] [facility] [place] [address] Akhil Cintron MD [address] [place] [address] Dr [address] [place], [place] Unspecified psychosis not due to a [...] Associated Diagnosis Comments BASIC METABOLIC PANEL Routine 10/30/2024 6:40 AM EDT Unspecified psychosis not due to a substance or known physiological condition (CMS/HCC V24, CMS/HCC V28) documented in this encounter Results * (ABNORMAL) Basic metabolic panel (10/30/2024 6:40 AM EDT) Sodium 140 133 - 145 mmol/L LAB CHEMISTRY METHOD 10/30/2024 7:38 AM EDT [facility] Potassium 4.2 3.5 - 5.5 mmol/L LAB CHEMISTRY METHOD 10/30/2024 7:38 AM EDT [facility] Chloride 106 96 - 110 mmol/L LAB CHEMISTRY METHOD 10/30/2024 7:38 AM T [facility] CO2 31 21 - 32 mmol/L LAB CHEMISTRY METHOD 10/30/2024 7:38 AM [facility] Anion Gap 3 3 - 11 LAB CHEMISTRY METHOD 10/30/2024 7:38 AM [facility] Glucose 94 70 - 100 mg/dL LAB CHEMISTRY METHOD 10/30/2024 7:38 AM [facility] BUN 5 5 - 25 mg/dL LAB CHEMISTRY METHOD 10/30/2024 7:38 AM [facility] Creatinine 0.63(L) 0.70 - 1.30 mg/dL LAB CHEMISTRY METHOD 10/30/2024 7:38 AM [facility] eGFR 123 >=60 mL/min/1. 73m2 LAB CHEMISTRY METHOD 10/30/2024 7:38 AM [facility] Comment:Calculation based on the Chronic Kidney Disease Epidemiology Collaboration (CKD-EPI) equation refit without adjustment for race. BUN/Creatinine Ratio 7.9 LAB CHEMISTRY METHOD 10/30/2024 7:38 AM [facility] Calcium 8.6 8.5 - 10.5 mg/dL LAB CHEMISTRY METHOD 10/30/2024 7:38 AM [facility] Blood Venous blood specimen / Unknown 10/30/2024 6:40 AM EDT 10/30/2024 7:09 AM EDT us Akhil Cintron MD LAB BLOOD ORDERABLES Final Resul t [facility] [address] [place] [address], documented in this encounter Visit Diagnoses Diagnosis Unspecified psychosis not due to a substance or known physiological condition (CMS/HCC V24, CMS/HCC V28) documented in this encounter Care Teams Quality Control Microbiology Supervisor Relationship Specialty Start Date End Date Akhil Cintron MD [address] [place] [address] Dr Marta [facility] [place], [place] PCP - General Internal Medicine 07/04/24 documented as of this encounter
--- OUTSIDE RECORDS SUMMARY | 2025-02-18 07:43 | XMS_ITS | Encounter Summary ---
Author Organization [facility] Address [address] [place] [address] Care Team Providers Care Cut Out Stitcher Name Role Phone Akhil Cintron MD Primary Care Provider [phone] Encounter Details Date Type Department Care Team (Late st Contact Info) Description 10/23/2024 Lab Requisition [facility] - Main Lab [address] [facility] [place] [address] Akhil Cintron MD [address] [place] [address] Dr [address] [place], [place] Unspecified psychosis not due to a [...] Associated Diagnosis Comments BASIC METABOLIC PANEL Routine 10/23/2024 6:33 AM EDT Unspecified psychosis not due to a substance or known physiological condition (CMS/HCC V24, CMS/HCC V28) documented in this encounter Results * (ABNORMAL) Basic metabolic panel (10/23/2024 6:33 AM EDT) Sodium 138 133 - 145 mmol/L LAB CHEMISTRY METHOD 10/23/2024 8:06 AM EDT [facility] Potassium 3.8 3.5 - 5.5 mmol/L LAB CHEMISTRY METHOD 10/23/2024 8:06 AM T [facility] Chloride 104 96 - 110 mmol/L LAB CHEMISTRY METHOD 10/23/2024 8:[address] [facility] CO2 28 21 - 32 mmol/L LAB CHEMISTRY METHOD 10/23/2024 8:[address] [facility] Anion Gap 6 3 - 11 LAB CHEMISTRY METHOD 10/23/2024 8:[address] [facility] Glucose 83 70 - 100 mg/dL LAB CHEMISTRY METHOD 10/23/2024 8:[address] [facility] BUN 3(L) 5 - 25 mg/dL LAB CHEMISTRY METHOD 10/23/2024 8:[address] [facility] Creatinine 0.42(L) 0.70 - 1.30 mg/dL LAB CHEMISTRY METHOD 10/23/2024 8:[address] [facility] eGFR 139 >=60 mL/min/1. 73m2 LAB CHEMISTRY METHOD 10/23/2024 8:[address] [facility] Comment:Calculation based on the Chronic Kidney Disease Epidemiology Collaboration (CKD-EPI) equation refit without adjustment for race. BUN/Creatinine Ratio 7.1 LAB CHEMISTRY METHOD 10/23/2024 8:[address] [facility] Calcium 8.8 8.5 - 10.5 mg/dL LAB CHEMISTRY METHOD 10/23/2024 8:[address] [facility] Blood Venous blood specimen / Unknown 10/23/2024 6:33 AM EDT 10/23/2024 6:51 AM EDT us Akhil Cintron MD LAB BLOOD ORDERABLES Final Resul t [facility] [address] [place] [address], documented in this encounter Visit Diagnoses Diagnosis Unspecified psychosis not due to a substance or known physiological condition (CMS/HCC V24, CMS/HCC V28) documented in this encounter Care Teams Cut Out Stitcher Relationship Specialty Start Date End Date Akhil Cintron MD [address] [place] [address] Dr Marta [facility] [place] PCP - General Internal Medicine 07/04/24 documented as of this encounter
--- OUTSIDE RECORDS SUMMARY | 2025-02-18 07:43 | XMS_ITS | Encounter Summary ---
Author Organization [facility] Address [address] [place] [address] Care Team Providers Care Canary Raiser Name Role Phone Akhil Cintron MD Primary Care Provider [phone] Encounter Details Date Type Department Care Team (Late st Contact Info) Description 11/28/2024 Lab Requisition [facility] - Main Lab [address] [facility] [place] [address] Akhil Cintron MD [address] [place] [address] [address] [place], [place] Other mcc (current) drug therapy; Encounter for screening for malignant neoplasm of prostate Social History Tobacco Use Types Packs/Day Years [...] Diagnosis Comments PROSTATE SPECIFIC ANTIGEN SCREEN Routine 11/28/2024 5:55 AM EDT Other remote computer terminal operator (current) drug therapy Encounter for screening for malignant neoplasm of prostate BILIRUBIN, DIRECT Routine 11/28/2024 5:5 5 AM EDT Other remote computer terminal operator (current) drug therapy Encounter for screening for malignant neoplasm of prostate AMMONIA Routine 11/28/2024 5:55 AM EDT Other mcc (current) drug therapy Encounter for screening for malignant neoplasm of prostate COMPREHENSIVE METABOLIC PANEL Routine 11/28/2024 5:55 AM EDT Other mcc (current) drug therapy Encounter for screening for malignant neoplasm of prostate documented in this encounter Results * Ammonia (11/28/2024 5:55 AM EDT) Ammonia 19 11 - 35 mcmol/L LAB CHEMISTRY METHOD 11/28/2024 8:59 AM EDT [facility] Blood Venous blood specimen / Unknown 11/28/2024 5:55 AM EDT 11/28/2024 8:04 AM EDT us Akhil Cintron MD LAB BLOOD ORDERABLES Final Resul t Performing Organization Address [facility] de Phone Number [facility] [address] [place] [address], [place] [phone] * Prostate specific antigen screen (11/28/2024 5:55 AM EDT) [facility] PSA 0.48 0.00 - 4.00 ng/mL LAB CHEMISTRY METHOD 11/28/2024 10:15 AM EDT [facility] Blood Venous blood specimen / Unknown 11/28/2024 5:55 AM EDT 11/28/2024 8:04 AM EDT Narrative [facility] - 11/28/2024 10:15 AM EDT The Siemens Advia Centaur Chemiluminescent Immunoassay is used. Results obtained with different assay methods or kits cannot be used interchangeably. Results cannot be interpreted as absolute evidence of the presence or absence of malignant disease. us Akhil Cintron MD LAB BLOOD ORDERABLES Final Resul t Performing Organization Address [facility] de Phone Number [facility] [address] [place] [address], [place] [phone] * Bilirubin, direct (11/28/2024 5:55 AM EDT) Pathologist [facility] Bilirubin, Direct 0.2 0.0 - 0.3 mg/dL LAB CHEMISTRY METHOD 11/28/2024 9:26 AM EDT [facility] Blood Venous blood specimen / Unknown 11/28/2024 5:55 AM EDT 11/28/2024 8:04 AM EDT us Akhil Cintron MD LAB BLOOD ORDERABLES Final Resul t [facility] [address] [place] [address], [place] [phone] * (ABNORMAL) Comprehensive metabolic panel (11/28/2024 5:55 AM EDT) Sodium 141 133 - 145 mmol/L LAB CHEMISTRY METHOD 11/28/2024 9:25 AM [facility] Potassium 4.5 3.5 - 5.5 mmol/L LAB CHEMISTRY METHOD 11/28/2024 9:25 AM [facility] Chloride 104 96 - 110 mmol/L LAB CHEMISTRY METHOD 11/28/2024 9:25 AM [facility] CO2 30 21 - 32 mmol/L LAB CHEMISTRY METHOD 11/28/2024 9:25 AM [facility] Anion Gap 7 3 - 11 LAB CHEMISTRY METHOD 11/28/2024 9:25 AM [facility] Glucose 96 70 - 100 mg/dL LAB CHEMISTRY METHOD 11/28/2024 9:25 AM [facility] BUN 5 5 - 25 mg/dL LAB CHEMISTRY METHOD 11/28/2024 9:25 AM [facility] Creatinine 0.52(L) 0.70 - 1.30 mg/dL LAB CHEMISTRY METHOD 11/28/2024 9:25 AM [facility] eGFR 131 >=60 mL/min/1. 73m2 LAB CHEMISTRY METHOD 11/28/2024 9:25 AM [facility] Comment:Calculation based on the Chronic Kidney Disease Epidemiology Collaboration (CKD-EPI) equation refit without adjustment for race. BUN/Creatinine Ratio 9.6 LAB CHEMISTRY METHOD 11/28/2024 9:25 AM [facility] Calcium 8.8 8.5 - 10.5 mg/dL LAB CHEMISTRY METHOD 11/28/2024 9:25 AM EDT [facility] AST (SGOT) 17 10 - 42 unit/L LAB CHEMISTRY METHOD 11/28/2024 9:25 AM [facility] ALT (SGPT) 36 10 - 60 unit/L LAB CHEMISTRY METHOD 11/28/2024 9:25 AM EDT [facility] Alkaline Phosphatase 69 42 - 121 unit/L LAB CHEMISTRY METHOD 11/28/2024 9:25 AM EDT [facility] Total Protein 6.3 6.0 - 8.0 g/dL LAB CHEMISTRY METHOD 11/28/2024 9:25 AM [facility] Albumin 3.8 3.2 - 5.0 g/dL LAB CHEMISTRY METHOD 11/28/2024 9:25 AM [facility] Total Bilirubin 0.5 0.0 - 1.4 mg/dL LAB CHEMISTRY METHOD 11/28/2024 9:25 AM EDT [facility] Blood Venous blood specimen / Unknown 11/28/2024 5:55 AM EDT 11/28/2024 8:04 AM EDT us Akhil Cintron MD LAB BLOOD ORDERABLES Final Resul t [facility] [address] [place] [address], documented in this encounter Visit Diagnoses Diagnosis Other mcc (current) drug therapy Encounter for screening for malignant neoplasm of prostate documented in this encounter Care Teams Canary Raiser Relationship Specialty Start Date End Date Akhil Cintron MD [address] [place] [address] Dr Marta Guthrie [place] PCP - General Internal Medicine 07/04/24 documented as of this encounter
--- OUTSIDE RECORDS SUMMARY | 2025-02-18 07:43 | XMS_ITS | Encounter Summary ---
Author Organization [facility] Address [address] [place] [address] Care Team Providers Care Dressage Judge Name Role Phone Akhil Cintron MD Primary Care Provider [phone] Encounter Details Date Type Department Care Team (Late st Contact Info) Description 07/04/2024 Lab Requisition [facility] - Main Lab 299 [facility] [place] [address] Akhil Cintron MD [address] [place] [address] Dr [address] [place], [place] Disorder of urea cycle metabolism, unspecified (CMS/HCC V24) Social History Tobacco Use Types Packs/Day Years [...] Associated Diagnosis Comments BASIC METABOLIC PANEL Routine 07/04/2024 6:45 AM EST Disorder of urea cycle metabolism, unspecified (CMS/HCC) documented in this encounter Results * (ABNORMAL) Basic metabolic panel (07/04/2024 6:45 AM EST) Sodium 139 133 - 145 mmol/L LAB CHEMISTRY METHOD 07/04/2024 8:00 AM EST [facility] Potassium 3.7 3.5 - 5.5 mmol/L LAB CHEMISTRY METHOD 07/04/2024 8:00 AM EST [facility] Chloride 104 96 - 110 mmol/L LAB CHEMISTRY METHOD 07/04/2024 8:00 AM EST [facility] CO2 31 21 - 32 mmol/L LAB CHEMISTRY METHOD 07/04/2024 8:00 AM [facility] Anion Gap 4 3 - 11 LAB CHEMISTRY METHOD 07/04/2024 8:00 AM [facility] Glucose 88 70 - 100 mg/dL LAB CHEMISTRY METHOD 07/04/2024 8:00 AM [facility] BUN 5 5 - 25 mg/dL LAB CHEMISTRY METHOD 07/04/2024 8:00 AM [facility] Creatinine 0.65(L) 0.70 - 1.30 mg/dL LAB CHEMISTRY METHOD 07/04/2024 8:00 AM [facility] eGFR 122 >=60 mL/min/1. 73m2 LAB CHEMISTRY METHOD 07/04/2024 8:00 AM [facility] Comment:Calculation based on the Chronic Kidney Disease Epidemiology Collaboration (CKD-EPI) equation refit without adjustment for race. BUN/Creatinine Ratio 7.7 LAB CHEMISTRY METHOD 07/04/2024 8:00 AM [facility] Calcium 8.7 8.5 - 10.5 mg/dL LAB CHEMISTRY METHOD 07/04/2024 8:00 AM [facility] Blood Venous blood specimen / Unknown 07/04/2024 6:45 AM EST 07/04/2024 7:24 AM EST us Akhil Cintron MD LAB BLOOD ORDERABLES Final Resul t [facility] [address] [place] [address], documented in this encounter Visit Diagnoses Diagnosis Disorder of urea cycle metabolism, unspecified (CMS/HCC V24) documented in this encounter Care Teams Dressage Judge Relationship Specialty Start Date End Date Akhil Cintron MD [address] [place] [address] Dr Lozano [facility] [place], [place] PCP - General Internal Medicine 07/04/24 documented as of this encounter
--- OUTSIDE RECORDS SUMMARY | 2025-02-18 07:43 | XMS_ITS | Encounter Summary ---
Author Organization [facility] Address [address] [place] [address] Care Team Providers Care Hog Sawyer Name Role Phone Akhil Cintron MD Primary Care Provider [phone] Encounter Details Date Type Department Care Team (Late st Contact Info) Description 08/01/2024 Lab Requisition [facility] - Main Lab [address] [place] [address] Akhil Cintron MD [address] [place] [address] [address] [place], [place] Hypo-osmolality and hyponatremia Social History Tobacco [...] Associated Diagnosis Comments BASIC METABOLIC PANEL Routine 08/01/2024 6:00 AM EST Hypo-osmolality and hyponatremia documented in this encounter Results * (ABNORMAL) Basic metabolic panel (08/01/2024 6:00 AM EST) Sodium 142 133 - 145 mmol/L LAB CHEMISTRY METHOD 08/01/2024 8:42 AM EST [facility] Potassium 3.9 3.5 - 5.5 mmol/L LAB CHEMISTRY METHOD 08/01/2024 8:42 AM EST [facility] Chloride 106 96 - 110 mmol/L LAB CHEMISTRY METHOD 08/01/2024 8:42 AM EST [facility] CO2 29 21 - 32 mmol/L LAB CHEMISTRY METHOD 08/01/2024 8:42 AM EST [facility] Anion Gap 7 3 - 11 LAB CHEMISTRY METHOD 08/01/2024 8:42 AM [facility] Glucose 86 70 - 100 mg/dL LAB CHEMISTRY METHOD 08/01/2024 8:42 AM [facility] BUN 5 5 - 25 mg/dL LAB CHEMISTRY METHOD 08/01/2024 8:42 AM [facility] Creatinine 0.61(L) 0.70 - 1.30 mg/dL LAB CHEMISTRY METHOD 08/01/2024 8:42 AM [facility] eGFR 125 >=60 mL/min/1. 73m2 LAB CHEMISTRY METHOD 08/01/2024 8:42 AM [facility] Comment:Calculation based on the Chronic Kidney Disease Epidemiology Collaboration (CKD-EPI) equation refit without adjustment for race. BUN/Creatinine Ratio 8.2 LAB CHEMISTRY METHOD 08/01/2024 8:42 AM [facility] Calcium 9.0 8.5 - 10.5 mg/dL LAB CHEMISTRY METHOD 08/01/2024 8:42 AM [facility] Blood Venous blood specimen / Unknown 08/01/2024 6:00 AM EST 08/01/2024 7:44 AM EST us Akhil Cintron MD LAB BLOOD ORDERABLES Final Resul t [facility] [address] [place] [address], documented in this encounter Visit Diagnoses Diagnosis Hypo-osmolality and hyponatremia documented in this encounter Care Teams Hog Sawyer Relationship Specialty Start Date End Date Akhil Cintron MD [address] [facility] [address] Lozano [facility] [place] PCP - General Internal Medicine 07/04/24 documented as of this encounter
--- OUTSIDE RECORDS SUMMARY | 2025-02-18 07:43 | XMS_ITS | Encounter Summary ---
Author Organization [facility] Address [address] [place] [address] Care Team Providers Care Launch Commander [employer] Name Role Phone Akhil Cintron MD Primary Care Provider Encounter Details Date Type Department Care Team (Late st Contact Info) Description 07/11/2024 Lab Requisition [facility] - Main Lab [address] [place] [address] Akhil Cintron MD [address] [place] [address] Dr [address] [place], [place] Hypo-osmolality and hyponatremia Social History Tobacco [...] Associated Diagnosis Comments BASIC METABOLIC PANEL Routine 07/11/2024 6:55 AM EST Hypo-osmolality and hyponatremia documented in this encounter Results * (ABNORMAL) Basic metabolic panel (07/11/2024 6:55 AM EST) Sodium 139 133 - 145 mmol/L LAB CHEMISTRY METHOD 07/11/2024 8:29 AM EST [facility] Potassium 4.2 3.5 - 5.5 mmol/L LAB CHEMISTRY METHOD 07/11/2024 8:29 AM EST [facility] Chloride 105 96 - 110 mmol/L LAB CHEMISTRY METHOD 07/11/2024 8:29 AM EST [facility] CO2 31 21 - 32 mmol/L LAB CHEMISTRY METHOD 07/11/2024 8:29 AM EST [facility] Anion Gap 3 3 - 11 LAB CHEMISTRY METHOD 07/11/2024 8:29 AM [facility] Glucose 100 70 - 100 mg/dL LAB CHEMISTRY METHOD 07/11/2024 8:29 AM [facility] BUN 4(L) 5 - 25 mg/dL LAB CHEMISTRY METHOD 07/11/2024 8:29 AM [facility] Creatinine 0.64(L) 0.70 - 1.30 mg/dL LAB CHEMISTRY METHOD 07/11/2024 8:29 AM [facility] eGFR 123 >=60 mL/min/1. 73m2 LAB CHEMISTRY METHOD 07/11/2024 8:29 AM [facility] Comment:Calculation based on the Chronic Kidney Disease Epidemiology Collaboration (CKD-EPI) equation refit without adjustment for race. BUN/Creatinine Ratio 6.3 LAB CHEMISTRY METHOD 07/11/2024 8:29 AM [facility] Calcium 8.9 8.5 - 10.5 mg/dL LAB CHEMISTRY METHOD 07/11/2024 8:29 AM [facility] Blood Venous blood specimen / Unknown 07/11/2024 6:55 AM EST 07/11/2024 8:02 AM EST us Akhil Cintron MD LAB BLOOD ORDERABLES Final Resul t [facility] [address] [place] [address], documented in this encounter Visit Diagnoses Diagnosis Hypo-osmolality and hyponatremia documented in this encounter Care Teams Launch Commander [employer] Relationship Specialty Start Date End Date Akhil Cintron MD [address] [facility] [address] Lozano [facility] [place], [place] PCP - General Internal Medicine 07/04/24 documented as of this encounter
--- OUTSIDE RECORDS SUMMARY | 2025-02-18 07:43 | XMS_ITS | Encounter Summary ---
Author Organization [facility] Address [address] [place] [address] Care Team Providers Care Store Hand Name Role Phone Akhil Cintron MD Primary Care Provider [phone] Encounter Details Date Type Department Care Team (Late st Contact Info) Description 10/10/2024 Lab Requisition [facility] [address] [facility] [place] [address] Akhil Cintron MD [address] [place] [address] [address] [place], [place] Hypo-osmolality and hyponatremia Social History Tobacco [...] Associated Diagnosis Comments BASIC METABOLIC PANEL Routine 10/10/2024 7:42 AM EDT Hypo-osmolality and hyponatremia documented in this encounter Results * (ABNORMAL) Basic metabolic panel (10/10/2024 7:42 AM EDT) Sodium 134 133 - 145 mmol/L LAB CHEMISTRY METHOD 10/10/2024 10:16 AM EDT [facility] Potassium 3.7 3.5 - 5.5 mmol/L LAB CHEMISTRY METHOD 10/10/2024 10:16 AM T [facility] Chloride 98 96 - 110 mmol/L LAB CHEMISTRY METHOD 10/10/2024 10:16 AM [facility] CO2 27 21 - 32 mmol/L LAB CHEMISTRY METHOD 10/10/2024 10:16 AM EDT [facility] Anion Gap 9 3 - 11 LAB CHEMISTRY METHOD 10/10/2024 10:16 AM T [facility] Glucose 93 70 - 100 mg/dL LAB CHEMISTRY METHOD 10/10/2024 10:16 AM [facility] BUN 5 5 - 25 mg/dL LAB CHEMISTRY METHOD 10/10/2024 10:16 AM [facility] Creatinine 0.46(L) 0.70 - 1.30 mg/dL LAB CHEMISTRY METHOD 10/10/2024 10:16 AM [facility] eGFR 136 >=60 mL/min/1. 73m2 LAB CHEMISTRY METHOD 10/10/2024 10:16 AM [facility] Comment:Calculation based on the Chronic Kidney Disease Epidemiology Collaboration (CKD-EPI) equation refit without adjustment for race. BUN/Creatinine Ratio 10.9 LAB CHEMISTRY METHOD 10/10/2024 10:16 AM [facility] Calcium 9.2 8.5 - 10.5 mg/dL LAB CHEMISTRY METHOD 10/10/2024 10:16 AM [facility] Blood Venous blood specimen / Unknown 10/10/2024 7:42 AM EDT 10/10/2024 9:11 AM EDT us Akhil Cintron MD LAB BLOOD ORDERABLES Final Resul t [facility] [address] [place] [address], documented in this encounter Visit Diagnoses Diagnosis Hypo-osmolality and hyponatremia documented in this encounter Care Teams Store Hand Relationship Specialty Start Date End Date Akhil Cintron MD [address] [facility] [address] Marta [address] [place] [address] [place] PCP - General Internal Medicine 07/04/24 documented as of this encounter
--- OUTSIDE RECORDS SUMMARY | 2025-02-18 07:43 | XMS_ITS | Encounter Summary ---
Author Organization [facility] Address [address] [place] [address] Care Team Providers Care Shipping Hand Name Role Phone Akhil Cintron MD Primary Care Provider [phone] Encounter Details Date Type Department Care Team (Late st Contact Info) Description 11/14/2024 Lab Requisition [facility] - Main Lab 299 [facility] [place] [address] Akhil Cintron MD [address] [place] [address] Dr [address] [place], [place] Hypo-osmolality and hyponatremia Social History Tobacco [...] Associated Diagnosis Comments BASIC METABOLIC PANEL Routine 11/14/2024 6:00 AM EDT Hypo-osmolality and hyponatremia documented in this encounter Results * (ABNORMAL) Basic metabolic panel (11/14/2024 6:00 AM EDT) Sodium 140 133 - 145 mmol/L LAB CHEMISTRY METHOD 11/14/2024 8:54 AM EDT [facility] Potassium 3.6 3.5 - 5.5 mmol/L LAB CHEMISTRY METHOD 11/14/2024 8:54 AM T [facility] Chloride 106 96 - 110 mmol/L LAB CHEMISTRY METHOD 11/14/2024 8:54 AM T [facility] CO2 28 21 - 32 mmol/L LAB CHEMISTRY METHOD 11/14/2024 8:54 AM EDT [facility] Anion Gap 6 3 - 11 LAB CHEMISTRY METHOD 11/14/2024 8:54 AM T [facility] Glucose 90 70 - 100 mg/dL LAB CHEMISTRY METHOD 11/14/2024 8:[address] [facility] BUN 4(L) 5 - 25 mg/dL LAB CHEMISTRY METHOD 11/14/2024 8:[address] [facility] Creatinine 0.49(L) 0.70 - 1.30 mg/dL LAB CHEMISTRY METHOD 11/14/2024 8:[address] [facility] eGFR 133 >=60 mL/min/1. 73m2 LAB CHEMISTRY METHOD 11/14/2024 8:[address] [facility] Comment:Calculation based on the Chronic Kidney Disease Epidemiology Collaboration (CKD-EPI) equation refit without adjustment for race. BUN/Creatinine Ratio 8.2 LAB CHEMISTRY METHOD 11/14/2024 8:[address] [facility] Calcium 8.4(L) 8.5 - 10.5 mg/dL LAB CHEMISTRY METHOD 11/14/2024 8:[address] [facility] Blood Venous blood specimen / Unknown 11/14/2024 6:00 AM EDT 11/14/2024 7:45 AM EDT us Akhil Cintron MD LAB BLOOD ORDERABLES Final Resul t [facility] [address] [place] [address], documented in this encounter Visit Diagnoses Diagnosis Hypo-osmolality and hyponatremia documented in this encounter Care Teams Shipping Hand Relationship Specialty Start Date End Date Akhil Cintron MD [address] [place] [address] Dr Lozano [address] [place] [address] PCP - General Internal Medicine 07/04/24 documented as of this encounter
--- OUTSIDE RECORDS SUMMARY | 2025-02-18 07:43 | XMS_ITS | Encounter Summary ---
Author [facility] Address [address] [place] [address] Care Team Providers Care Special Effects Specialist Name Role Phone Akhil Cintron MD Primary Care Provider [phone] Encounter Details Date Type Department Care Team (Late st Contact Info) Description 06/20/2024 Lab Requisition [facility] - Main Lab [address] [facility] [place] [address] Akhil Cintron MD [address] [place] [address] [address] [place], [place] Hypo-osmolality and hyponatremia Social History Tobacco [...] Associated Diagnosis Comments BASIC METABOLIC PANEL Routine 06/20/2024 6:15 AM EST Hypo-osmolality and hyponatremia documented in this encounter Results * (ABNORMAL) Basic metabolic panel (06/20/2024 6:15 AM EST) Sodium 137 133 - 145 mmol/L LAB CHEMISTRY METHOD 06/20/2024 8:05 AM [facility] Potassium 3.8 3.5 - 5.5 mmol/L LAB CHEMISTRY METHOD 06/20/2024 8:05 AM [facility] Chloride 103 96 - 110 mmol/L LAB CHEMISTRY METHOD 06/20/2024 8:05 AM [facility] CO2 31 21 - 32 mmol/L LAB CHEMISTRY METHOD 06/20/2024 8:05 AM [facility] Anion Gap 3 3 - 11 LAB CHEMISTRY METHOD 06/20/2024 8:05 AM [facility] Glucose 78 70 - 100 mg/dL LAB CHEMISTRY METHOD 06/20/2024 8:05 AM [facility] BUN 3(L) 5 - 25 mg/dL LAB CHEMISTRY METHOD 06/20/2024 8:05 AM [facility] Creatinine 0.79 0.70 - 1.30 mg/dL LAB CHEMISTRY METHOD 06/20/2024 8:05 AM [facility] eGFR 115 >=60 mL/min/1. 73m2 LAB CHEMISTRY METHOD 06/20/2024 8:05 AM [facility] Comment:Calculation based on the Chronic Kidney Disease Epidemiology Collaboration (CKD-EPI) equation refit without adjustment for race. BUN/Creatinine Ratio 3.8 LAB CHEMISTRY METHOD 06/20/2024 8:05 AM [facility] Calcium 8.7 8.5 - 10.5 mg/dL LAB CHEMISTRY METHOD 06/20/2024 8:05 AM [facility] Blood Venous blood specimen / Unknown 06/20/2024 6:15 AM EST 06/20/2024 7:34 AM EST us Akhil Cintron MD LAB BLOOD ORDERABLES Final Resul t [facility] [address] [place] [address], documented in this encounter Visit Diagnoses Diagnosis Hypo-osmolality and hyponatremia documented in this encounter Care Teams Special Effects Specialist Relationship Specialty Start Date End Date Akhil Cintron MD [address] [facility] [address] Lozano [address] [place] [address] [place] PCP - General Internal Medicine 07/04/24 documented as of this encounter
--- OUTSIDE RECORDS SUMMARY | 2025-02-18 07:43 | XMS_ITS | Encounter Summary ---
Author Organization Al[facility]na [facility] Address [address] [place] [address] Care Team Providers Care Die Assembler Name Role Phone Akhil Cintron MD Primary Care Provider [phone] Encounter Details Date Type Department Care Team (Late st Contact Info) Description 02/13/2025 Lab Requisition [facility] - Main Lab [address] [facility] [employer] [place] [address] Akhil Cintron MD [address] [place] [address] Dr [address] [place], [place] Hypo-osmolality and hyponatremia Social History Tobacco [...] 02/13/2025 7:00 AM EDT Hypo-osmolality and hyponatremia documented in this encounter Results * (ABNORMAL) Basic metabolic panel (02/13/2025 7:00 AM EDT) Sodium 140 133 - 145 mmol/L LAB CHEMISTRY METHOD 02/13/2025 8:34 AM EDT [facility] Potassium 4.1 3.5 - 5.5 mmol/L LAB CHEMISTRY METHOD 02/13/2025 8:34 AM T [facility] Chloride 107 96 - 110 mmol/L LAB CHEMISTRY METHOD 02/13/2025 8:34 AM T [facility] CO2 31 21 - 32 mmol/L LAB CHEMISTRY METHOD 02/13/2025 8:34 AM EDT [facility] Anion Gap 2(L) 3 - 11 LAB CHEMISTRY METHOD 02/13/2025 8:34 AM [facility] Glucose 97 70 - 100 mg/dL LAB CHEMISTRY METHOD 02/13/2025 8:34 AM [facility] BUN 3(L) 5 - 25 mg/dL LAB CHEMISTRY METHOD 02/13/2025 8:34 AM [facility] Creatinine 0.66(L) 0.70 - 1.30 mg/dL LAB CHEMISTRY METHOD 02/13/2025 8:34 AM [facility] eGFR 122 >=60 mL/min/1. 73m2 LAB CHEMISTRY METHOD 02/13/2025 8:34 AM [facility] Comment:Calculation based on the Chronic Kidney Disease Epidemiology Collaboration (CKD-EPI) equation refit without adjustment for race. BUN/Creatinine Ratio 4.5 LAB CHEMISTRY METHOD 02/13/2025 8:34 AM [facility] Calcium 8.9 8.5 - 10.5 mg/dL LAB CHEMISTRY METHOD 02/13/2025 8:34 AM [facility] Blood Venous blood specimen / Unknown 02/13/2025 7:00 AM EDT 02/13/2025 7:49 AM EDT us Akhil Cintron MD LAB BLOOD ORDERABLES Final Resul t [facility] [address] [place] [address], documented in this encounter Visit Diagnoses Diagnosis Hypo-osmolality and hyponatremia documented in this encounter Care Teams Die Assembler Relationship Specialty Start Date End Date Akhil Cintron MD [address] [place] [address] Dr Lozano [address] [place] [address] PCP - General Internal Medicine 07/04/24 documented as of this encounter
--- OUTSIDE RECORDS SUMMARY | 2025-02-18 07:43 | XMS_ITS | Encounter Summary ---
[facility] Address [address] [place] [address] Care Team Providers Care Manager Auto Name Role Phone Akhil Cintron MD Primary Care Provider [phone] Encounter Details Date Type Department Care Team (Latest Contact Info) Description 08/12/2024 Lab Requisition [facility] - Main Lab [address] [place] [address] Akhil Cintron MD [address] [place] [address] [address] [place], [place] Schizoaffective disorder, bipolar type (CMS/HCC V24, [...] Associated Diagnosis Comments BASIC METABOLIC PANEL Routine 08/12/2024 6:28 AM EST Schizoaffective disorder, bipolar type (CMS/HCC) documented in this encounter Results * (ABNORMAL) Basic metabolic panel (08/12/2024 6:28 AM EST) Sodium 140 133 - 145 mmol/L LAB CHEMISTRY METHOD 08/12/2024 9:02 AM EST [facility] Potassium 3.9 3.5 - 5.5 mmol/L LAB CHEMISTRY METHOD 08/12/2024 9:02 AM EST [facility] Chloride 103 96 - 110 mmol/L LAB CHEMISTRY METHOD 08/12/2024 9:02 AM EST [facility] CO2 28 21 - 32 mmol/L LAB CHEMISTRY METHOD 08/12/2024 9:02 AM [facility] Anion Gap 9 3 - 11 LAB CHEMISTRY METHOD 08/12/2024 9:02 AM [facility] Glucose 94 70 - 100 mg/dL LAB CHEMISTRY METHOD 08/12/2024 9:02 AM [facility] BUN 3(L) 5 - 25 mg/dL LAB CHEMISTRY METHOD 08/12/2024 9:02 AM [facility] Creatinine 0.56(L) 0.70 - 1.30 mg/dL LAB CHEMISTRY METHOD 08/12/2024 9:02 AM [facility] eGFR 128 >=60 mL/min/1. 73m2 LAB CHEMISTRY METHOD 08/12/2024 9:02 AM [facility] Comment:Calculation based on the Chronic Kidney Disease Epidemiology Collaboration (CKD-EPI) equation refit without adjustment for race. BUN/Creatinine Ratio 5.4 LAB CHEMISTRY METHOD 08/12/2024 9:02 AM [facility] Calcium 9.0 8.5 - 10.5 mg/dL LAB CHEMISTRY METHOD 08/12/2024 9:02 AM [facility] Blood Venous blood specimen / Unknown 08/12/2024 6:28 AM EST 08/12/2024 8:18 AM EST us Akhil Cintron MD LAB BLOOD ORDERABLES Final Resul t [facility] [address] [place] [address], documented in this encounter Visit Diagnoses Diagnosis Schizoaffective disorder, bipolar type (CMS/HCC V24, CMS/HCC V28) Schizoaffective disorder, unspecified condition documented in this encounter Care Teams Manager Auto Relationship Specialty Start Date End Date Akhil Cintron MD [address] [place] [address] Dr [address] [place] [address] [place] PCP - General Internal Medicine 07/04/24 documented as of this encounter
--- OUTSIDE RECORDS SUMMARY | 2025-02-18 07:43 | XMS_ITS | Encounter Summary ---
Author Organization Alayna [facility] Address [address] [place] [address] Care Team Providers Care Forensic Structural Engineer Name Role Phone Akhli Cintron MD Primary Care Provider [phone] Encounter Details Date Type Department Care Team (Late st Contact Info) Description 05/30/2024 Lab Requisition [facility] - Main Lab [address] [place] [address] Akhil Cintron MD [address] [place] [address] [address] [place], [place] Other senior care (current) drug therapy Social History Tobacco Use [...] Associated Diagnosis Comments BASIC METABOLIC PANEL Routine 05/30/2024 6:20 AM EST Other senior care (current) drug therapy documented in this encounter Results * (ABNORMAL) Basic metabolic panel (05/30/2024 6:20 AM EST) Sodium 139 133 - 145 mmol/L LAB CHEMISTRY METHOD 05/30/2024 7:33 AM EST [facility] Potassium 4.1 3.5 - 5.5 mmol/L LAB CHEMISTRY METHOD 05/30/2024 7:33 AM EST [facility] Chloride 105 96 - 110 mmol/L LAB CHEMISTRY METHOD 05/30/2024 7:33 AM EST [facility] CO2 31 21 - 32 mmol/L LAB CHEMISTRY METHOD 05/30/2024 7:33 AM EST [facility] Anion Gap 3 3 - 11 LAB CHEMISTRY METHOD 05/30/2024 7:33 AM [facility] Glucose 89 70 - 100 mg/dL LAB CHEMISTRY METHOD 05/30/2024 7:33 AM [facility] BUN 3(L) 5 - 25 mg/dL LAB CHEMISTRY METHOD 05/30/2024 7:33 AM [facility] Creatinine 0.64(L) 0.70 - 1.30 mg/dL LAB CHEMISTRY METHOD 05/30/2024 7:33 AM [facility] eGFR 123 >=60 mL/min/1. 73m2 LAB CHEMISTRY METHOD 05/30/2024 7:33 AM [facility] Comment:Calculation based on the Chronic Kidney Disease Epidemiology Collaboration (CKD-EPI) equation refit without adjustment for race. BUN/Creatinine Ratio 4.7 LAB CHEMISTRY METHOD 05/30/2024 7:33 AM [facility] Calcium 9.3 8.5 - 10.5 mg/dL LAB CHEMISTRY METHOD 05/30/2024 7:33 AM [facility] Blood Venous blood specimen / Unknown 05/30/2024 6:20 AM EST 05/30/2024 7:02 AM EST us Akhil Cintron MD LAB BLOOD ORDERABLES Final Resul t [facility] [address] [place] [address], documented in this encounter Visit Diagnoses Diagnosis Other senior care (current) drug therapy documented in this encounter Care Teams Forensic Structural Engineer Relationship Specialty Start Date End Date Akhil Cintron MD [address] [place] [address] Dr Marta Guthrie [place] PCP - General Internal Medicine 07/04/24 documented as of this encounter
--- OUTSIDE RECORDS SUMMARY | 2025-02-18 07:43 | XMS_ITS | Encounter Summary ---
Author Organization Alayna [facility] Address [address] [place] [address] Care Team Providers Care Scroll Shear Operator Name Role Phone Akhil Cintron MD Primary Care Provider [phone] Encounter Details Date Type Department Care Team (Late st Contact Info) Description 01/30/2025 Lab Requisition [facility] - Main Lab 299 [facility] [employer] [place] [address] Akhil Cintron MD [address] [place] [address] Dr [address] [place], [place] Hypo-osmolality and hyponatremia Social History Tobacco [...] Associated Diagnosis Comments BASIC METABOLIC PANEL Routine 01/30/2025 5:45 AM EDT Hypo-osmolality and hyponatremia documented in this encounter Results * (ABNORMAL) Basic metabolic panel (01/30/2025 5:45 AM EDT) Sodium 140 133 - 145 mmol/L LAB CHEMISTRY METHOD 01/30/2025 7:24 AM EDT [facility] Potassium 4.2 3.5 - 5.5 mmol/L LAB CHEMISTRY METHOD 01/30/2025 7:24 AM EDT [facility] Chloride 106 96 - 110 mmol/L LAB CHEMISTRY METHOD 01/30/2025 7:24 AM EDT [facility] CO2 31 21 - 32 mmol/L LAB CHEMISTRY METHOD 01/30/2025 7:24 AM EDT [facility] Anion Gap 3 3 - 11 LAB CHEMISTRY METHOD 01/30/2025 7:24 AM T [facility] Glucose 90 70 - 100 mg/dL LAB CHEMISTRY METHOD 01/30/2025 7:24 AM [facility] BUN 5 5 - 25 mg/dL LAB CHEMISTRY METHOD 01/30/2025 7:24 AM [facility] Creatinine 0.65(L) 0.70 - 1.30 mg/dL LAB CHEMISTRY METHOD 01/30/2025 7:24 AM [facility] eGFR 122 >=60 mL/min/1. 73m2 LAB CHEMISTRY METHOD 01/30/2025 7:24 AM [facility] Comment:Calculation based on the Chronic Kidney Disease Epidemiology Collaboration (CKD-EPI) equation refit without adjustment for race. BUN/Creatinine Ratio 7.7 LAB CHEMISTRY METHOD 01/30/2025 7:24 AM [facility] Calcium 9.5 8.5 - 10.5 mg/dL LAB CHEMISTRY METHOD 01/30/2025 7:24 AM [facility] Blood Venous blood specimen / Unknown 01/30/2025 5:45 AM EDT 01/30/2025 6:39 AM EDT us Akhil Cintron MD LAB BLOOD ORDERABLES Final Resul t [facility] [address] [place] [address], documented in this encounter Visit Diagnoses Diagnosis Hypo-osmolality and hyponatremia documented in this encounter Care Teams Scroll Shear Operator Relationship Specialty Start Date End Date Akhil Cintron MD [address] [place] [address] Dr Marta [facility] [place] PCP - General Internal Medicine 07/04/24 documented as of this encounter
--- OUTSIDE RECORDS SUMMARY | 2025-02-18 07:43 | XMS_ITS | Encounter Summary ---
[facility] Address [address] [place] [address] Care Team Providers Care Bank Messenger Name Role Phone Akhil Cintron MD Primary Care Provider [phone] Encounter Details Date Type Department Care Team (Late st Contact Info) Description 05/23/2024 Lab Requisition [facility] - Main Lab [address] [place] [address] Akhil Cintron MD [address] [place] [address] Dr [address] [place], [place] Hypo-osmolality and hyponatremia Social History Tobacco [...] Associated Diagnosis Comments BASIC METABOLIC PANEL Routine 05/23/2024 7:18 AM EST Hypo-osmolality and hyponatremia documented in this encounter Results * (ABNORMAL) Basic metabolic panel (05/23/2024 7:18 AM EST) Sodium 139 133 - 145 mmol/L LAB CHEMISTRY METHOD 05/23/2024 8:[address] [facility] Potassium 4.1 3.5 - 5.5 mmol/L LAB CHEMISTRY METHOD 05/23/2024 8:[address] [facility] Chloride 103 96 - 110 mmol/L LAB CHEMISTRY METHOD 05/23/2024 8:[address] [facility] CO2 29 21 - 32 mmol/L LAB CHEMISTRY METHOD 05/23/2024 8:[address] [facility] Anion Gap 7 3 - 11 LAB CHEMISTRY METHOD 05/23/2024 8:43 AM [facility] Glucose 94 70 - 100 mg/dL LAB CHEMISTRY METHOD 05/23/2024 8:43 AM [facility] BUN 2(L) 5 - 25 mg/dL LAB CHEMISTRY METHOD 05/23/2024 8:43 AM [facility] Creatinine 0.61(L) 0.70 - 1.30 mg/dL LAB CHEMISTRY METHOD 05/23/2024 8:43 AM [facility] eGFR 125 >=60 mL/min/1. 73m2 LAB CHEMISTRY METHOD 05/23/2024 8:43 AM [facility] Comment:Calculation based on the Chronic Kidney Disease Epidemiology Collaboration (CKD-EPI) equation refit without adjustment for race. BUN/Creatinine Ratio 3.3 LAB CHEMISTRY METHOD 05/23/2024 8:43 AM [facility] Calcium 8.8 8.5 - 10.5 mg/dL LAB CHEMISTRY METHOD 05/23/2024 8:43 AM [facility] Blood Venous blood specimen / Unknown 05/23/2024 7:18 AM EST 05/23/2024 8:09 AM EST us Akhil Cintron MD LAB BLOOD ORDERABLES Final Resul t [facility] [address] [place] [address], documented in this encounter Visit Diagnoses Diagnosis Hypo-osmolality and hyponatremia documented in this encounter Care Teams Bank Messenger Relationship Specialty Start Date End Date Akhil Cintron MD [address] [facility] [address] Lozano [facility] [place], [place] PCP - General Internal Medicine 07/04/24 documented as of this encounter
--- OUTSIDE RECORDS SUMMARY | 2025-02-18 07:43 | XMS_ITS | Encounter Summary ---
Author Organization Alayna [facility] Address [address] [place] [address] Care Team Providers Care Candle Pourer Name Role Phone Akhil Cintron MD Primary Care Provider [phone] Encounter Details Date Type Department Care Team (Late st Contact Info) Description 06/06/[address] [facility] - Main Lab [address] [place] [address] Akhil Cintron MD [address] [place] [address] [address] [place], [place] Disorder of urea cycle metabolism, unspecified (CMS/HCC V24); Hypo-osmolality and hyponatremia Social History Tobacco Use [...] Associated Diagnosis Comments BASIC METABOLIC PANEL Routine 06/06/2024 5:06 AM EST Disorder of urea cycle metabolism, unspecified (CMS/HCC) Hypo-osmolality and hyponatremia documented in this encounter Results * (ABNORMAL) Basic metabolic panel (06/06/2024 5:06 AM EST) Sodium 139 133 - 145 mmol/L LAB CHEMISTRY METHOD 06/06/2024 6:25 AM EST [facility] Potassium 4.3 3.5 - 5.5 mmol/L LAB CHEMISTRY METHOD 06/06/2024 6:25 AM EST [facility] Chloride 105 96 - 110 mmol/L LAB CHEMISTRY METHOD 06/06/2024 6:25 AM EST [facility] CO2 31 21 - 32 mmol/L LAB CHEMISTRY METHOD 06/06/2024 6:[address] [facility] Anion Gap 3 3 - 11 LAB CHEMISTRY METHOD 06/06/2024 6:[address] [facility] Glucose 94 70 - 100 mg/dL LAB CHEMISTRY METHOD 06/06/2024 6:[address] [facility] BUN 2(L) 5 - 25 mg/dL LAB CHEMISTRY METHOD 06/06/2024 6:[address] [facility] Creatinine 0.68(L) 0.70 - 1.30 mg/dL LAB CHEMISTRY METHOD 06/06/2024 6:[address] [facility] eGFR 121 >=60 mL/min/1. 73m2 LAB CHEMISTRY METHOD 06/06/2024 6:[address] [facility] Comment:Calculation based on the Chronic Kidney Disease Epidemiology Collaboration (CKD-EPI) equation refit without adjustment for race. BUN/Creatinine Ratio 2.9 LAB CHEMISTRY METHOD 06/06/2024 6:[address] [facility] Calcium 9.0 8.5 - 10.5 mg/dL LAB CHEMISTRY METHOD 06/06/2024 6:[address] [facility] Blood Venous blood specimen / Unknown 06/06/2024 5:06 AM EST 06/06/2024 6:08 AM EST us Akhil Cintron MD LAB BLOOD ORDERABLES Final Resul t [facility] [address] [place] [address], documented in this encounter Visit Diagnoses Diagnosis Disorder of urea cycle metabolism, unspecified (CMS/HCC V24) Hypo-osmolality and hyponatremia documented in this encounter Care Teams Candle Pourer Relationship Specialty Start Date End Date Akhil Cintron MD [address] [place] [address] [address] [place], [place] PCP - General Internal Medicine 07/04/24 documented as of this encounter
--- OUTSIDE RECORDS SUMMARY | 2025-02-18 07:43 | XMS_ITS | Encounter Summary ---
[facility] Address [address] [place] [address] Care Team Providers Care Administrative Tech Name Role Phone Akhil Cintron MD Primary Care Provider [phone] Encounter Details Date Type Department Care Team (Late st Contact Info) Description 11/07/2024 Lab Requisition [facility] - Main Lab 299 [facility] [place] [address] Akhil Cintron MD [address] [place] [address] Dr [address] [place], [place] Encounter for therapeutic drug level monitoring [...] Associated Diagnosis Comments BASIC METABOLIC PANEL Routine 11/07/2024 6:38 AM EDT Encounter for therapeutic drug level monitoring documented in this encounter Results * (ABNORMAL) Basic metabolic panel (11/07/2024 6:38 AM EDT) Sodium 138 133 - 145 mmol/L LAB CHEMISTRY METHOD 11/07/2024 9:03 AM T [facility] Potassium 4.2 3.5 - 5.5 mmol/L LAB CHEMISTRY METHOD 11/07/2024 9:03 AM [facility] Chloride 104 96 - 110 mmol/L LAB CHEMISTRY METHOD 11/07/2024 9:03 AM [facility] CO2 29 21 - 32 mmol/L LAB CHEMISTRY METHOD 11/07/2024 9:03 AM [facility] Anion Gap 5 3 - 11 LAB CHEMISTRY METHOD 11/07/2024 9:03 AM [facility] Glucose 94 70 - 100 mg/dL LAB CHEMISTRY METHOD 11/07/2024 9:03 AM [facility] BUN 4(L) 5 - 25 mg/dL LAB CHEMISTRY METHOD 11/07/2024 9:03 AM [facility] Creatinine 0.59(L) 0.70 - 1.30 mg/dL LAB CHEMISTRY METHOD 11/07/2024 9:03 AM [facility] eGFR 126 >=60 mL/min/1. 73m2 LAB CHEMISTRY METHOD 11/07/2024 9:03 AM [facility] Comment:Calculation based on the Chronic Kidney Disease Epidemiology Collaboration (CKD-EPI) equation refit without adjustment for race. BUN/Creatinine Ratio 6.8 LAB CHEMISTRY METHOD 11/07/2024 9:03 AM [facility] Calcium 9.4 8.5 - 10.5 mg/dL LAB CHEMISTRY METHOD 11/07/2024 9:03 AM [facility] Blood Venous blood specimen / Unknown 11/07/2024 6:38 AM EDT 11/07/2024 7:27 AM EDT us Akhil Cintron MD LAB BLOOD ORDERABLES Final Resul t [facility] [address] [place] [address], documented in this encounter Visit Diagnoses Diagnosis Encounter for therapeutic drug level monitoring documented in this encounter Care Teams Administrative Tech Relationship Specialty Start Date End Date Akhil Cintron MD [address] [place] [address] [address] [place] [address] [place] PCP - General Internal Medicine 07/04/24 documented as of this encounter
--- OUTSIDE RECORDS SUMMARY | 2025-02-18 07:43 | XMS_ITS | Encounter Summary ---
Author Organization [employer] Address [address] [facility] [address] [place] [address] Care Team Providers Care Web Design Intern Name Role Phone Unavailable Primary Care Provider Unavailabl e Encounter Details Date Type Department Care Team (Latest Contact Info) Description 07/04/2019 Abstract [facility] CONVERSIONS Dental, Provider, DDS Social History Tobacco Use Types Packs/Day Years Used Date Smoking Tobacco: Never Assessed Sex and Gender Information Value Date Recorded Sex Assigned at Male 04/10/2022 10:33 AM EDT Legal Sex Male 10:33 AM EDT Gender Identity Male 04/10/2022 10:33 AM EDT Sexual Orientation Straight 04/10/2022 10 :33 AM EDT documented as of this encounter Plan of Treatment Not on file documented as of this encounter Visit Diagnoses Not on filedocumented in this encounter
--- OUTSIDE RECORDS SUMMARY | 2025-02-18 07:43 | XMS_ITS | Encounter Summary ---
Author Organization Alayna [facility] Address [address] [place] [address] Care Team Providers Care Felt Finisher Name Role Phone Akhil Cintron MD Primary Care Provider [phone] Encounter Details Date Type Department Care Team (Late st Contact Info) Description 01/23/[address] [facility] - Main Lab 299 [facility] [place] [address] Akhil Cintron MD [address] [place] [address] Dr [address] [place], [place] Hypo-osmolality and hyponatremia Social History Tobacco [...] Associated Diagnosis Comments BASIC METABOLIC PANEL Routine 01/23/2025 6:15 AM EDT Hypo-osmolality and hyponatremia documented in this encounter Results * (ABNORMAL) Basic metabolic panel (01/23/2025 6:15 AM EDT) Sodium 141 133 - 145 mmol/L LAB CHEMISTRY METHOD 01/23/2025 7:47 AM EDT [facility] Potassium 3.8 3.5 - 5.5 mmol/L LAB CHEMISTRY METHOD 01/23/2025 7:47 AM T [facility] Chloride 108 96 - 110 mmol/L LAB CHEMISTRY METHOD 01/23/2025 7:47 AM T [facility] CO2 29 21 - 32 mmol/L LAB CHEMISTRY METHOD 01/23/2025 7:47 AM EDT [facility] Anion Gap 4 3 - 11 LAB CHEMISTRY METHOD 01/23/2025 7:47 AM T [facility] Glucose 86 70 - 100 mg/dL LAB CHEMISTRY METHOD 01/23/2025 7:47 AM [facility] BUN 5 5 - 25 mg/dL LAB CHEMISTRY METHOD 01/23/2025 7:47 AM [facility] Creatinine 0.54(L) 0.70 - 1.30 mg/dL LAB CHEMISTRY METHOD 01/23/2025 7:47 AM [facility] eGFR 129 >=60 mL/min/1. 73m2 LAB CHEMISTRY METHOD 01/23/2025 7:47 AM [facility] Comment:Calculation based on the Chronic Kidney Disease Epidemiology Collaboration (CKD-EPI) equation refit without adjustment for race. BUN/Creatinine Ratio 9.3 LAB CHEMISTRY METHOD 01/23/2025 7:47 AM [facility] Calcium 8.6 8.5 - 10.5 mg/dL LAB CHEMISTRY METHOD 01/23/2025 7:47 AM [facility] Blood Venous blood specimen / Unknown 01/23/2025 6:15 AM EDT 01/23/2025 7:10 AM EDT us Akhil Cintron MD LAB BLOOD ORDERABLES Final Resul t [facility] [address] [place] [address], documented in this encounter Visit Diagnoses Diagnosis Hypo-osmolality and hyponatremia documented in this encounter Care Teams Felt Finisher Relationship Specialty Start Date End Date Akhil Cintron MD [address] [place] [address] Dr Lozano [facility] [place] PCP - General Internal Medicine 07/04/24 documented as of this encounter
--- OUTSIDE RECORDS SUMMARY | 2025-02-18 07:43 | XMS_ITS | Encounter Summary ---
Author Organization [facility] Address [address] [place] [address] Care Team Providers Care Studio Sales Associate Name Role Phone Akhil Cintron MD Primary Care Provider [phone] Encounter Details Date Type Department Care Team (Late st Contact Info) Description 11/06/2024 Lab Requisition [facility] - Main Lab [address] [facility] [place] [address] Akhil Cnitron MD [address] [place] [address] [address] [place], [place] Unspecified psychosis not due to a [...] Associated Diagnosis Comments BASIC METABOLIC PANEL Routine 11/06/2024 6:50 AM EDT Unspecified psychosis not due to a substance or known physiological condition (CMS/HCC V24, CMS/HCC V28) documented in this encounter Results * (ABNORMAL) Basic metabolic panel (11/06/2024 6:50 AM EDT) Sodium 136 133 - 145 mmol/L LAB CHEMISTRY METHOD 11/06/2024 8:36 AM EDT [facility] Potassium 4.1 3.5 - 5.5 mmol/L LAB CHEMISTRY METHOD 11/06/2024 8:36 AM EDT [facility] Chloride 104 96 - 110 mmol/L LAB CHEMISTRY METHOD 11/06/2024 8:36 AM T [facility] CO2 28 21 - 32 mmol/L LAB CHEMISTRY METHOD 11/06/2024 8:36 AM [facility] Anion Gap 4 3 - 11 LAB CHEMISTRY METHOD 11/06/2024 8:36 AM [facility] Glucose 88 70 - 100 mg/dL LAB CHEMISTRY METHOD 11/06/2024 8:36 AM [facility] BUN 3(L) 5 - 25 mg/dL LAB CHEMISTRY METHOD 11/06/2024 8:36 AM [facility] Creatinine 0.59(L) 0.70 - 1.30 mg/dL LAB CHEMISTRY METHOD 11/06/2024 8:36 AM [facility] eGFR 126 >=60 mL/min/1. 73m2 LAB CHEMISTRY METHOD 11/06/2024 8:36 AM [facility] Comment:Calculation based on the Chronic Kidney Disease Epidemiology Collaboration (CKD-EPI) equation refit without adjustment for race. BUN/Creatinine Ratio 5.1 LAB CHEMISTRY METHOD 11/06/2024 8:36 AM [facility] Calcium 9.0 8.5 - 10.5 mg/dL LAB CHEMISTRY METHOD 11/06/2024 8:36 AM [facility] Blood Venous blood specimen / Unknown 11/06/2024 6:50 AM EDT 11/06/2024 7:31 AM EDT us Akhil Cintron MD LAB BLOOD ORDERABLES Final Resul t [facility] [address] [place] [address], documented in this encounter Visit Diagnoses Diagnosis Unspecified psychosis not due to a substance or known physiological condition (CMS/HCC V24, CMS/HCC V28) documented in this encounter Care Teams Studio Sales Associate Relationship Specialty Start Date End Date Akhil Cintron MD [address] [place] [address] Dr Marta [facility] PrestonREGAN dorado PCP - General Internal Medicine 07/04/24 documented as of this encounter
--- OUTSIDE RECORDS SUMMARY | 2025-02-18 07:43 | XMS_ITS | Encounter Summary ---
Author Organization [facility] Address [address] [place] [address] Care Team Providers Care Food Processing Scientist Name Role Phone Akhil Cintron MD Primary Care Provider Encounter Details Date Type Department Care Team (Latest Contact Info) Description 08/28/2024 Lab Requisition [facility] - Main Lab 299 [facility] [place] [address] Akhil Cintron MD [address] [place] [address] [address] [place], [place] Schizoaffective disorder, bipolar type (CMS/HCC V24, CMS/HCC V28); Benign prostatic hyperplasia with lower urinary tract symptoms; Encounter for screening for cardiovascular disorders; Other mcfp (current) drug therapy Social History Tobacco Use [...] Procedure Name Priority Date/Time Associated Diagnosis Comments LIPID PANEL WITH REFLEX TO DIRECT LDL Routine 08/28/2024 6:20 AM EDT Schizoaffective disorder, bipolar type (CMS/HCC) Benign prostatic hyperplasia with lower urinary tract symptoms Encounter for screening for cardiovascular disorders Other mcfp (current) drug therapy PROSTATE SPECIFIC ANTIGEN DIAGNOSTIC Routine 08/28/2024 6:20 AM EDT Schizoaffective disorder, bipolar type (CMS/HCC) Benign prostatic hyperplasia with lower urinary tract symptoms Encounter for screening for cardiovascular disorders Other mcfp (current) drug therapy CBC WITH AUTO DIFFERENTIAL Routine 08/28/2024 6:20 AM EDT Schizoaffective disorder, bipolar type (CMS/HCC) Benign prostatic hyperplasia with lower urinary tract symptoms Encounter for screening for cardiovascular disorders Other [employer] (current) drug therapy CBC AND DIFFERENTIAL Routine 08/28/2024 6:20 AM EDT Schizoaffective disorder, bipolar type (CMS/HCC) Benign prostatic hyperplasia with lower urinary tract symptoms Encounter for screening for cardiovascular disorders Other [facility]p (current) drug therapy THYROID STIMULATING HORMONE Routine 08/28/2024 6:20 AM EDT Schizoaffective disorder, bipolar type (CMS/HCC) Benign prostatic hyperplasia with lower urinary tract symptoms Encounter for screening for cardiovascular disorders Other m[facility]p (current) drug therapy BILIRUBIN, DIRECT Routine 08/28/2024 6:2 0 AM EDT Schizoaffective disorder, bipolar type (CMS/HCC) Benign prostatic hyperplasia with lower urinary tract symptoms Encounter for screening for cardiovascular disorders Other [employer] (current) drug therapy AMMONIA Routine 08/28/2024 6:20 AM EDT Schizoaffective disorder, bipolar type (CMS/HCC) Benign prostatic hyperplasia with lower urinary tract symptoms Encounter for screening for cardiovascular disorders Other [employer] (current) drug therapy COMPREHENSIVE METABOLIC PANEL Routine 08/28/2024 6:20 AM EDT Schizoaffective disorder, bipolar type (CMS/HCC) Benign prostatic hyperplasia with lower urinary tract symptoms Encounter for screening for cardiovascular disorders Other [employer] (current) drug therapy documented in this encounter Results * (ABNORMAL) CBC auto differential (08/28/2024 6:20 AM EDT) [facility] WBC 5.2 4.8 - 10.8 K/mcL LAB HEMETOLOGY METHOD 08/28/2024 8:21 AM EDT [facility] RBC 4.20(L) 4.50 - 5.50 M/mcL LAB HEMETOLOGY METHOD 08/28/2024 8:[address] [facility] Hemoglobin 13.3(L) 13.5 - 17.5 g/dL LAB HEMETOLOGY METHOD 08/28/2024 8:[address] [facility] Hematocrit 35.6(L) 42.0 - 54.0 % LAB HEMETOLOGY METHOD 08/28/2024 8:[address] [facility] MCV 84.0 79.0 - 98.0 FL LAB HEMETOLOGY METHOD 08/28/2024 8:[address] [facility] MCH 31.4 27.0 - 32.0 pcg LAB HEMETOLOGY METHOD 08/28/2024 8:[address] [facility] MCHC 37.4(H) 32.0 - 37.0 g/dL LAB HEMETOLOGY METHOD 08/28/2024 8:[address] [facility] RDW 12.2 11.0 - 15.0 % LAB HEMETOLOGY METHOD 08/28/2024 8:[address] [facility] Platelets 213 130 - 400 K/mcL LAB HEMETOLOGY METHOD 08/28/2024 8:[address] [facility] MPV 11.1(H) 7.0 - 11.0 FL LAB HEMETOLOGY METHOD 08/28/2024 8:[address] [facility] NRBC 0.0 <1.0 % LAB HEMETOLOGY METHOD 08/28/2024 8:[address] [facility] NRBC Absolute 0.00 <0.10 K/mcL LAB HEMETOLOGY METHOD 08/28/2024 8:[address] [facility] Neutrophils Relative 58.8 % LAB HEMETOLOGY METHOD 08/28/2024 8:[address] [facility] Lymphocytes Relative 30.9 % LAB HEMETOLOGY METHOD 08/28/2024 8:[address] [facility] Monocytes Relative 5.6 % LAB HEMETOLOGY METHOD 08/28/2024 8:[address] [facility] Eosinophils Relative 4.1 % LAB HEMETOLOGY METHOD 08/28/2024 8:21 AM EDT [facility] Basophils Relative 0.4 % LAB HEMETOLOGY METHOD 08/28/2024 8:21 AM EDT [facility] Immature Granulocytes Relative 0.2 % LAB HEMETOLOGY METHOD 08/28/2024 8:21 AM EDT [facility] Neutrophils Absolute 3.03 1.50 - 7.00 K/mcL LAB HEMETOLOGY METHOD 08/28/2024 8:21 AM EDT [facility] Lymphocytes Absolute 1.59 1.00 - 5.00 K/mcL LAB HEMETOLOGY METHOD 08/28/2024 8:21 AM EDT [facility] Monocytes Absolute 0.29 0.20 - 1.00 K/mcL LAB HEMETOLOGY METHOD 08/28/2024 8:21 AM EDT [facility] Eosinophils Absolute 0.21 0.00 - 0.50 K/mcL LAB HEMETOLOGY METHOD 08/28/2024 8:21 AM EDT [facility] Basophils Absolute 0.02 0.00 - 0.20 K/mcL LAB [facility]OLOGY [facility] Immature Granulocytes Absolute 0.01 0.00 - 0.03 K/mcL LAB HEMETOLOGY METHOD 08/28/2024 8:21 AM T [facility] Blood Venous blood specimen / Unknown 08/28/2024 6:20 AM EDT 08/28/2024 6:55 AM EDT us Akhil Cintron MD LAB BLOOD ORDERABLES Final Resul t [facility] [address] [place] [address], * Thyroid stimulating hormone (08/28/2024 6:20 AM EDT) TSH 2.02 0.40 - 4.00 mcIU/mL LAB CHEMISTRY METHOD 08/28/2024 7:41 AM EDT [facility] Blood Venous blood specimen / Unknown 08/28/2024 6:20 AM EDT 08/28/2024 6:55 AM EDT us Akhil Cintron MD LAB BLOOD ORDERABLES Final Resul t Performing Organization Address [facility] de Phone Number [facility] [address] [place] [address], * Prostate specific antigen diagnostic (08/28/2024 6:20 AM EDT) PSA 0.51 0.00 - 4.00 ng/mL LAB CHEMISTRY METHOD 08/28/2024 11:32 AM EDT [facility] Blood Venous blood specimen / Unknown 08/28/2024 6:20 AM EDT 08/28/2024 6:55 AM EDT Narrative [facility] - 08/28/2024 11:32 AM EDT The Siemens Advia Centaur Chemiluminescent Immunoassay is used. Results obtained with different assay methods or kits cannot be used interchangeably. Results cannot be interpreted as absolute evidence of the presence or absence of malignant disease. us Akhil Cintron MD LAB BLOOD ORDERABLES Final Resul t Performing Organization Address [facility] de Phone Number [facility] [address] [place] [address], [place] [phone] * Ammonia (08/28/2024 6:20 AM EDT) Ammonia 31 11 - 35 mcmol/L LAB CHEMISTRY METHOD 08/28/2024 7:41 AM EDT [facility] Blood Venous blood specimen / Unknown 08/28/2024 6:20 AM EDT 08/28/2024 6:55 AM EDT us Akhil Cintron MD LAB BLOOD ORDERABLES Final Resul t Performing Organization Address City/[facility]/ZIP Co de Phone Number [facility] [address] [place] [address], [place] [phone] * Bilirubin, direct (08/28/2024 6:20 AM EDT) Bilirubin, Direct 0.2 0.0 - 0.3 mg/dL LAB CHEMISTRY METHOD 08/28/2024 7:41 AM EDT [facility] Blood Venous blood specimen / Unknown 08/28/2024 6:20 AM EDT 08/28/2024 6:55 AM EDT us Akhil Cintron MD LAB BLOOD ORDERABLES Final Resul t Performing Organization Address [facility]/ZIP Co de Phone Number [facility] [address] [place] [address], [place] [phone] * Lipid panel with reflex to direct LDL (08/28/2024 6:20 AM EDT) Cholesterol 130 0 - 200 mg/dL LAB CHEMISTRY METHOD 08/28/2024 7:41 AM T [facility] Triglycerides 47 0 - 150 mg/dL LAB CHEMISTRY METHOD 08/28/2024 7:41 AM EDT [facility] HDL 59 >=40 mg/dL LAB CHEMISTRY METHOD 08/28/2024 7:41 AM EDT [facility] LDL Calculated 62 0 - 100 mg/dL LAB CHEMISTRY METHOD 08/28/2024 7:41 AM EDT [facility] VLDL Cholesterol Will 9.4 mg/dL LAB CHEMISTRY METHOD 08/28/2024 7:41 AM EDT [facility] Non HDL Chol. (LDL+VLDL) 71 <145 mg/dL LAB CHEMISTRY METHOD 08/28/2024 7:41 AM EDT [facility] Chol/HDL Ratio 2.2 0.0 - 4.4 LAB CHEMISTRY METHOD 08/28/2024 7:[address] [facility] Blood Venous blood specimen / Unknown 08/28/2024 6:20 AM EDT 08/28/2024 6:55 AM EDT us Akhil Cintron MD LAB BLOOD ORDERABLES Final Resul t [facility] [address] [place] [address], [place] [phone] * (ABNORMAL) Comprehensive metabolic panel (08/28/2024 6:20 AM EDT) Sodium 134 133 - 145 mmol/L LAB CHEMISTRY METHOD 08/28/2024 7:[address] [facility] Potassium 3.8 3.5 - 5.5 mmol/L LAB CHEMISTRY METHOD 08/28/2024 7:[address] [facility] Chloride 102 96 - 110 mmol/L LAB CHEMISTRY METHOD 08/28/2024 7:[address] [facility] CO2 26 21 - 32 mmol/L LAB CHEMISTRY METHOD 08/28/2024 7:[address] [facility] Anion Gap 6 3 - 11 LAB CHEMISTRY METHOD 08/28/2024 7:[address] [facility] Glucose 97 70 - 100 mg/dL LAB CHEMISTRY METHOD 08/28/2024 7:[address] [facility] BUN 2(L) 5 - 25 mg/dL LAB CHEMISTRY METHOD 08/28/2024 7:[address] [facility] Creatinine 0.44(L) 0.70 - 1.30 mg/dL LAB CHEMISTRY METHOD 08/28/2024 7:[address] [facility] eGFR 137 >=60 mL/min/1. 73m2 LAB CHEMISTRY METHOD 08/28/2024 7:[address] [facility] Comment:Calculation based on the Chronic Kidney Disease Epidemiology Collaboration (CKD-EPI) equation refit without adjustment for race. BUN/Creatinine Ratio 4.5 LAB CHEMISTRY METHOD 08/28/2024 7:[address] [facility] Calcium 9.2 8.5 - 10.5 mg/dL LAB CHEMISTRY METHOD 08/28/2024 7:[address] [facility] AST (SGOT) 16 10 - 42 unit/L LAB CHEMISTRY METHOD 08/28/2024 7:[address] [facility] ALT (SGPT) 30 10 - 60 unit/L LAB CHEMISTRY METHOD 08/28/2024 7:[address] [facility] Alkaline Phosphatase 74 42 - 121 unit/L LAB CHEMISTRY METHOD 08/28/2024 7:[address] [facility] Total Protein 6.4 6.0 - 8.0 g/dL LAB CHEMISTRY METHOD 08/28/2024 7:[address] [facility] Albumin 3.9 3.2 - 5.0 g/dL LAB CHEMISTRY METHOD 08/28/2024 7:[address] [facility] Total Bilirubin 0.6 0.0 - 1.4 mg/dL LAB CHEMISTRY METHOD 08/28/2024 7:[address] [facility] Blood Venous blood specimen / Unknown 08/28/2024 6:20 AM EDT 08/28/2024 6:55 AM EDT us Akhil Cintron MD LAB BLOOD ORDERABLES Final Resul t [facility] [address] [place] [address], [place] [phone] documented in this encounter Visit Diagnoses Diagnosis Schizoaffective disorder, bipolar type (CMS/HCC V24, CMS/HCC V28) Schizoaffective disorder, unspecified condition Benign prostatic hyperplasia with lower urinary tract symptoms Encounter for screening for cardiovascular disorders Other mcfp (current) drug therapy documented in this encounter Care Teams Food Processing Scientist Relationship Specialty Start Date End Date Akhil Cintron MD [address] [facility] [facility] [address] REGAN Guthrie PCP - General Internal Medicine 07/04/24 documented as of this encounter
--- OUTSIDE RECORDS SUMMARY | 2025-02-18 07:44 | XMS_ITS | Encounter Summary ---
[facility] [address] [place] [address] Care Team Providers Care Websphere Administrator Name Role Phone Akhil Cintron MD Primary Care Provider [phone] Encounter Details Date Type Department Care Team (Late st Contact Info) Description 09/12/2024 Lab Requisition [facility] - Main Lab [address] [place] [address] Akhil Cintron MD [address] [place] [address] Dr [address] [place], [place] Hypoglycemia, unspecified Social History Tobacco Use Types Packs/Day Years [...] Associated Diagnosis Comments BASIC METABOLIC PANEL Routine 09/12/2024 6:05 AM EDT Hypoglycemia, unspecified documented in this encounter Results * (ABNORMAL) Basic metabolic panel (09/12/2024 6:05 AM EDT) Sodium 136 133 - 145 mmol/L LAB CHEMISTRY METHOD 09/12/2024 8:15 AM EDT [facility] Potassium 4.1 3.5 - 5.5 mmol/L LAB CHEMISTRY METHOD 09/12/2024 8:15 AM T [facility] Chloride 103 96 - 110 mmol/L LAB CHEMISTRY METHOD 09/12/2024 8:15 AM [facility] CO2 27 21 - 32 mmol/L LAB CHEMISTRY METHOD 09/12/2024 8:15 AM EDT [facility] Anion Gap 6 3 - 11 LAB CHEMISTRY METHOD 09/12/2024 8:15 AM T [facility] Glucose 97 70 - 100 mg/dL LAB CHEMISTRY METHOD 09/12/2024 8:15 AM [facility] BUN 3(L) 5 - 25 mg/dL LAB CHEMISTRY METHOD 09/12/2024 8:15 AM [facility] Creatinine 0.46(L) 0.70 - 1.30 mg/dL LAB CHEMISTRY METHOD 09/12/2024 8:15 AM [facility] eGFR 136 >=60 mL/min/1. 73m2 LAB CHEMISTRY METHOD 09/12/2024 8:15 AM [facility] Comment:Calculation based on the Chronic Kidney Disease Epidemiology Collaboration (CKD-EPI) equation refit without adjustment for race. BUN/Creatinine Ratio 6.5 LAB CHEMISTRY METHOD 09/12/2024 8:15 AM [facility] Calcium 9.3 8.5 - 10.5 mg/dL LAB CHEMISTRY METHOD 09/12/2024 8:15 AM [facility] Blood Venous blood specimen / Unknown 09/12/2024 6:05 AM EDT 09/12/2024 7:10 AM EDT us Akhil Cintron MD LAB BLOOD ORDERABLES Final Resul t [facility] [address] [place] [address], documented in this encounter Visit Diagnoses Diagnosis Hypoglycemia, unspecified documented in this encounter Care Teams Websphere Administrator Relationship Specialty Start Date End Date Akhil Cintron MD [address] [place] [address] Dr Marta [place] PCP - General Internal Medicine 07/04/24 documented as of this encounter
--- OUTSIDE RECORDS SUMMARY | 2025-02-18 07:44 | XMS_ITS | Encounter Summary ---
Author Organization [facility] Address [address] [place] [address] Care Team Providers Care Cloth Printer Helper Name Role Phone Akhil Cintron MD Primary Care Provider [phone] Encounter Details Date Type Department Care Team (Late st Contact Info) Description 08/22/2024 Lab Requisition [facility] - Main Lab [address] [facility] [place] [address] Akhil Cintron MD [address] [place] [address] Dr [address] [place], [place] Hypo-osmolality and hyponatremia Social History Tobacco [...] Associated Diagnosis Comments BASIC METABOLIC PANEL Routine 08/22/2024 6:10 AM EDT Hypo-osmolality and hyponatremia documented in this encounter Results * (ABNORMAL) Basic metabolic panel (08/22/2024 6:10 AM EDT) Sodium 138 133 - 145 mmol/L LAB CHEMISTRY METHOD 08/22/2024 7:50 AM EDT [facility] Potassium 4.2 3.5 - 5.5 mmol/L LAB CHEMISTRY METHOD 08/22/2024 7:50 AM EDT [facility] Chloride 103 96 - 110 mmol/L LAB CHEMISTRY METHOD 08/22/2024 7:50 AM EDT [facility] CO2 31 21 - 32 mmol/L LAB CHEMISTRY METHOD 08/22/2024 7:50 AM EDT [facility] Anion Gap 4 3 - 11 LAB CHEMISTRY METHOD 08/22/2024 7:50 AM EDT [facility] Glucose 87 70 - 100 mg/dL LAB CHEMISTRY METHOD 08/22/2024 7:[address] [facility] BUN 3(L) 5 - 25 mg/dL LAB CHEMISTRY METHOD 08/22/2024 7:[address] [facility] Creatinine 0.61(L) 0.70 - 1.30 mg/dL LAB CHEMISTRY METHOD 08/22/2024 7:[address] [facility] eGFR 125 >=60 mL/min/1. 73m2 LAB CHEMISTRY METHOD 08/22/2024 7:[address] [facility] Comment:Calculation based on the Chronic Kidney Disease Epidemiology Collaboration (CKD-EPI) equation refit without adjustment for race. BUN/Creatinine Ratio 4.9 LAB CHEMISTRY METHOD 08/22/2024 7:[address] [facility] Calcium 9.3 8.5 - 10.5 mg/dL LAB CHEMISTRY METHOD 08/22/2024 7:[address] [facility] Blood Venous blood specimen / Unknown 08/22/2024 6:10 AM EDT 08/22/2024 7:17 AM EDT us Akhil Cintron MD LAB BLOOD ORDERABLES Final Resul t [facility] [address] [place] [address], documented in this encounter Visit Diagnoses Diagnosis Hypo-osmolality and hyponatremia documented in this encounter Care Teams Cloth Printer Helper Relationship Specialty Start Date End Date Akhil Cintron MD [address] [place] [address] Dr Mart[address] [place] [address] [place] PCP - General Internal Medicine 07/04/24 documented as of this encounter
--- OUTSIDE RECORDS SUMMARY | 2025-02-18 07:44 | XMS_ITS | Encounter Summary ---
[facility] Address [address] [place] [address] Care Team Providers Care Platen Builder Up Name Role Phone Akhil Cintron MD Primary Care Provider [phone] Encounter Details Date Type Department Care Team (Late st Contact Info) Description 09/19/2024 Lab Requisition [facility] - Main Lab [address] [facility] [address] Akhil Cintron MD [address] [place] [address] [address] [place], [place] Other senior living (current) drug therapy Social History Tobacco Use [...] Associated Diagnosis Comments BASIC METABOLIC PANEL Routine 09/19/2024 6:05 AM EDT Other senior living (current) drug therapy documented in this encounter Results * (ABNORMAL) Basic metabolic panel (09/19/2024 6:05 AM EDT) Sodium 141 133 - 145 mmol/L LAB CHEMISTRY METHOD 09/19/2024 8:[address] [facility] Potassium 4.0 3.5 - 5.5 mmol/L LAB CHEMISTRY METHOD 09/19/2024 8:[address] [facility] Chloride 107 96 - 110 mmol/L LAB CHEMISTRY METHOD 09/19/2024 8:[address] [facility] CO2 29 21 - 32 mmol/L LAB CHEMISTRY METHOD 09/19/2024 8:[address] [facility] Anion Gap 5 3 - 11 LAB CHEMISTRY METHOD 09/19/2024 8:55 AM [facility] Glucose 90 70 - 100 mg/dL LAB CHEMISTRY METHOD 09/19/2024 8:55 AM [facility] BUN 4(L) 5 - 25 mg/dL LAB CHEMISTRY METHOD 09/19/2024 8:55 AM [facility] Creatinine 0.54(L) 0.70 - 1.30 mg/dL LAB CHEMISTRY METHOD 09/19/2024 8:55 AM [facility] eGFR 129 >=60 mL/min/1. 73m2 LAB CHEMISTRY METHOD 09/19/2024 8:55 AM [facility] Comment:Calculation based on the Chronic Kidney Disease Epidemiology Collaboration (CKD-EPI) equation refit without adjustment for race. BUN/Creatinine Ratio 7.4 LAB CHEMISTRY METHOD 09/19/2024 8:55 AM [facility] Calcium 9.1 8.5 - 10.5 mg/dL LAB CHEMISTRY METHOD 09/19/2024 8:55 AM [facility] Blood Venous blood specimen / Unknown 09/19/2024 6:05 AM EDT 09/19/2024 8:04 AM EDT us Akhil Cintron MD LAB BLOOD ORDERABLES Final Resul t [facility] [address] [place] [address], documented in this encounter Visit Diagnoses Diagnosis Other senior living (current) drug therapy documented in this encounter Care Teams Platen Builder Up Relationship Specialty Start Date End Date Akhil Cintron MD [address] [place] [address] [place] [address] [place] PCP - General Internal Medicine 07/04/24 documented as of this encounter
--- OUTSIDE RECORDS SUMMARY | 2025-02-18 07:44 | XMS_ITS | Encounter Summary ---
Author Organization [facility] Address [address] [place] [address] Care Team Providers Care Subassembly Supervisor Name Role Phone Akhil Cintron MD Primary Care Provider [phone] Encounter Details Date Type Department Care Team (Late st Contact Info) Description 08/15/2024 Lab Requisition [facility] - Main Lab [address] [place] [address] Akhil Cintron MD [address] [place] [address] Dr [address] [place], [place] Hypo-osmolality and hyponatremia Social History Tobacco [...] Associated Diagnosis Comments BASIC METABOLIC PANEL Routine 08/15/2024 6:40 AM EST Hypo-osmolality and hyponatremia documented in this encounter Results * (ABNORMAL) Basic metabolic panel (08/15/2024 6:40 AM EST) Sodium 137 133 - 145 mmol/L LAB CHEMISTRY METHOD 08/15/2024 8:[address] [facility] Potassium 3.8 3.5 - 5.5 mmol/L LAB CHEMISTRY METHOD 08/15/2024 8:[address] [facility] Chloride 103 96 - 110 mmol/L LAB CHEMISTRY METHOD 08/15/2024 8:[address] [facility] CO2 30 21 - 32 mmol/L LAB CHEMISTRY METHOD 08/15/2024 8:[address] [facility] Anion Gap 4 3 - 11 LAB CHEMISTRY METHOD 08/15/2024 8:17 AM [facility] Glucose 88 70 - 100 mg/dL LAB CHEMISTRY METHOD 08/15/2024 8:17 AM [facility] BUN 4(L) 5 - 25 mg/dL LAB CHEMISTRY METHOD 08/15/2024 8:17 AM [facility] Creatinine 0.73 0.70 - 1.30 mg/dL LAB CHEMISTRY METHOD 08/15/2024 8:17 AM [facility] eGFR 118 >=60 mL/min/1. 73m2 LAB CHEMISTRY METHOD 08/15/2024 8:17 AM [facility] Comment:Calculation based on the Chronic Kidney Disease Epidemiology Collaboration (CKD-EPI) equation refit without adjustment for race. BUN/Creatinine Ratio 5.5 LAB CHEMISTRY METHOD 08/15/2024 8:17 AM [facility] Calcium 9.1 8.5 - 10.5 mg/dL LAB CHEMISTRY METHOD 08/15/2024 8:17 AM [facility] Blood Venous blood specimen / Unknown 08/15/2024 6:40 AM EST 08/15/2024 7:34 AM EST us Akhil Cintron MD LAB BLOOD ORDERABLES Final Resul t [facility] [address] [place] [address], documented in this encounter Visit Diagnoses Diagnosis Hypo-osmolality and hyponatremia documented in this encounter Care Teams Subassembly Supervisor Relationship Specialty Start Date End Date Akhil Cintron MD [address] [facility] [address] Lozano [address] [place] [address] [place] PCP - General Internal Medicine 07/04/24 documented as of this encounter
--- OUTSIDE RECORDS SUMMARY | 2025-02-18 07:44 | XMS_ITS | Encounter Summary ---
Author Organization [facility] Address [address] [place] [address] Care Team Providers Care Multifocal Lens Inspector Name Role Phone Akhil Cintron MD Primary Care Provider Encounter Details Date Type Department Care Team (Late st Contact Info) Description 09/26/2024 Lab Requisition [facility] - Main Lab [address] [place] [address] Akhil Cintron MD [address] [place] [address] Dr [address] [place], [place] Hypo-osmolality and hyponatremia Social History Tobacco [...] Associated Diagnosis Comments BASIC METABOLIC PANEL Routine 09/26/2024 5:06 AM EDT Hypo-osmolality and hyponatremia documented in this encounter Results * (ABNORMAL) Basic metabolic panel (09/26/2024 5:06 AM EDT) Sodium 139 133 - 145 mmol/L LAB CHEMISTRY METHOD 09/26/2024 6:08 AM EDT [facility] Potassium 3.8 3.5 - 5.5 mmol/L LAB CHEMISTRY METHOD 09/26/2024 6:08 AM [facility] Chloride 106 96 - 110 mmol/L LAB CHEMISTRY METHOD 09/26/2024 6:08 AM [facility] CO2 30 21 - 32 mmol/L LAB CHEMISTRY METHOD 09/26/2024 6:08 AM T [facility] Anion Gap 3 3 - 11 LAB CHEMISTRY METHOD 09/26/2024 6:08 AM [facility] Glucose 87 70 - 100 mg/dL LAB CHEMISTRY METHOD 09/26/2024 6:08 AM [facility] BUN 5 5 - 25 mg/dL LAB CHEMISTRY METHOD 09/26/2024 6:08 AM [facility] Creatinine 0.59(L) 0.70 - 1.30 mg/dL LAB CHEMISTRY METHOD 09/26/2024 6:08 AM [facility] eGFR 126 >=60 mL/min/1. 73m2 LAB CHEMISTRY METHOD 09/26/2024 6:08 AM [facility] Comment:Calculation based on the Chronic Kidney Disease Epidemiology Collaboration (CKD-EPI) equation refit without adjustment for race. BUN/Creatinine Ratio 8.5 LAB CHEMISTRY METHOD 09/26/2024 6:08 AM [facility] Calcium 8.8 8.5 - 10.5 mg/dL LAB CHEMISTRY METHOD 09/26/2024 6:08 AM [facility] Blood Venous blood specimen / Unknown 09/26/2024 5:06 AM EDT 09/26/2024 5:45 AM EDT us Akhil Cintron MD LAB BLOOD ORDERABLES Final Resul t [facility] [address] [place] [address], documented in this encounter Visit Diagnoses Diagnosis Hypo-osmolality and hyponatremia documented in this encounter Care Teams Multifocal Lens Inspector Relationship Specialty Start Date End Date Akhil Cintron MD [address] [place] [address] Dr [address] [facility] [place] PCP - General Internal Medicine 07/04/24 documented as of this encounter
--- OUTSIDE RECORDS SUMMARY | 2025-02-18 07:44 | XMS_ITS | Encounter Summary ---
Author Organization [facility] Address [address] [place] [address] Care Team Providers Care Biomedical Service Engineer Name Role Phone Akhil Cintron MD Primary Care Provider [phone] Encounter Details Date Type Department Care Team (Late st Contact Info) Description 10/03/2024 Lab Requisition [facility] - Main Lab [address] [facility] [place] [place] [address] Akhil Cintron MD [address] [place] [address] Dr [address] [place], [place] Hypo-osmolality and [...] Associated Diagnosis Comments BASIC METABOLIC PANEL Routine 10/03/2024 5:45 AM EDT Hypo-osmolality and hyponatremia documented in this encounter Results * (ABNORMAL) Basic metabolic panel (10/03/2024 5:45 AM EDT) Sodium 133 133 - 145 mmol/L LAB CHEMISTRY METHOD 10/03/2024 7:15 AM EDT [facility] Potassium 3.4(L) 3.5 - 5.5 mmol/L LAB CHEMISTRY METHOD 10/03/2024 7:15 AM EDT [facility] Chloride 100 96 - 110 mmol/L LAB CHEMISTRY METHOD 10/03/2024 7:15 AM EDT [facility] CO2 30 21 - 32 mmol/L LAB CHEMISTRY METHOD 10/03/2024 7:15 AM EDT [facility] Anion Gap 3 3 - 11 LAB CHEMISTRY METHOD 10/03/2024 7:15 AM T [facility] Glucose 89 70 - 100 mg/dL LAB CHEMISTRY METHOD 10/03/2024 7:[address] [facility] BUN 3(L) 5 - 25 mg/dL LAB CHEMISTRY METHOD 10/03/2024 7:[address] [facility] Creatinine 0.56(L) 0.70 - 1.30 mg/dL LAB CHEMISTRY METHOD 10/03/2024 7:[address] [facility] eGFR 128 >=60 mL/min/1. 73m2 LAB CHEMISTRY METHOD 10/03/2024 7:[address] [facility] Comment:Calculation based on the Chronic Kidney Disease Epidemiology Collaboration (CKD-EPI) equation refit without adjustment for race. BUN/Creatinine Ratio 5.4 LAB CHEMISTRY METHOD 10/03/2024 7:[address] [facility] Calcium 9.1 8.5 - 10.5 mg/dL LAB CHEMISTRY METHOD 10/03/2024 7:[address] [facility] Blood Venous blood specimen / Unknown 10/03/2024 5:45 AM EDT 10/03/2024 6:38 AM EDT us Akhil Cintron MD LAB BLOOD ORDERABLES Final Resul t [facility] [address] [place] [address], documented in this encounter Visit Diagnoses Diagnosis Hypo-osmolality and hyponatremia documented in this encounter Care Teams Biomedical Service Engineer Relationship Specialty Start Date End Date Akhil Cintron MD [address] [place] [address] Dr Lozano [address] [place] [address] PCP - General Internal Medicine 07/04/24 documented as of this encounter
--- OUTSIDE RECORDS SUMMARY | 2025-02-18 07:44 | XMS_ITS | Encounter Summary ---
[facility] Address [address] [place] [address] Care Team Providers Care Military Analyst Name Role Phone Akhil Cintron MD Primary Care Provider [phone] Encounter Details Date Type Department Care Team (Late st Contact Info) Description 09/05/2024 Lab Requisition [facility] - Main Lab [address] [place] [address] Akhil Cintron MD [address] [place] [address] [address] [place], [place] Other nursing home (current) drug therapy Social History Tobacco Use [...] Associated Diagnosis Comments BASIC METABOLIC PANEL Routine 09/05/2024 6:05 AM EDT Other nursing home (current) drug therapy documented in this encounter Results * (ABNORMAL) Basic metabolic panel (09/05/2024 6:05 AM EDT) Sodium 138 133 - 145 mmol/L LAB CHEMISTRY METHOD 09/05/2024 8:01 AM EDT [facility] Potassium 3.7 3.5 - 5.5 mmol/L LAB CHEMISTRY METHOD 09/05/2024 8:01 AM EDT [facility] Chloride 104 96 - 110 mmol/L LAB CHEMISTRY METHOD 09/05/2024 8:01 AM EDT [facility] CO2 28 21 - 32 mmol/L LAB CHEMISTRY METHOD 09/05/2024 8:01 AM EDT [facility] Anion Gap 6 3 - 11 LAB CHEMISTRY METHOD 09/05/2024 8:01 AM [facility] Glucose 88 70 - 100 mg/dL LAB CHEMISTRY METHOD 09/05/2024 8:01 AM [facility] BUN 3(L) 5 - 25 mg/dL LAB CHEMISTRY METHOD 09/05/2024 8:01 AM [facility] Creatinine 0.54(L) 0.70 - 1.30 mg/dL LAB CHEMISTRY METHOD 09/05/2024 8:01 AM [facility] eGFR 129 >=60 mL/min/1. 73m2 LAB CHEMISTRY METHOD 09/05/2024 8:01 AM [facility] Comment:Calculation based on the Chronic Kidney Disease Epidemiology Collaboration (CKD-EPI) equation refit without adjustment for race. BUN/Creatinine Ratio 5.6 LAB CHEMISTRY METHOD 09/05/2024 8:01 AM [facility] Calcium 8.8 8.5 - 10.5 mg/dL LAB CHEMISTRY METHOD 09/05/2024 8:01 AM [facility] Blood Venous blood specimen / Unknown 09/05/2024 6:05 AM EDT 09/05/2024 7:03 AM EDT us Akhil Cintron MD LAB BLOOD ORDERABLES Final Resul t [facility] [address] [place] [address], documented in this encounter Visit Diagnoses Diagnosis Other nursing home (current) drug therapy documented in this encounter Care Teams Military Analyst Relationship Specialty Start Date End Date Akhil Cintron MD [address] [place] [address] Dr Marta [address] [place] [address] [place] PCP - General Internal Medicine 07/04/24 documented as of this encounter
--- OUTSIDE RECORDS SUMMARY | 2025-02-18 07:44 | XMS_ITS | Encounter Summary ---
Author Organization [facility] Address [address] [place] [address] Care Team Providers Care Rehabilitation Caseworker Name Role Phone Akhil Cintron MD Primary Care Provider [phone] Encounter Details Date Type Department Care Team (Late st Contact Info) Description 01/09/2025 Lab Requisition [facility] - Main Lab [address] [facility] [place] [address] Akhil Cintron MD [address] [place] [address] [address] [place], [place] Hypo-osmolality and hyponatremia Social History Tobacco [...] Associated Diagnosis Comments BASIC METABOLIC PANEL Routine 01/09/2025 5:58 AM EDT Hypo-osmolality and hyponatremia documented in this encounter Results * (ABNORMAL) Basic metabolic panel (01/09/2025 5:58 AM EDT) Sodium 139 133 - 145 mmol/L LAB CHEMISTRY METHOD 01/09/2025 7:27 AM EDT [facility] Potassium 3.7 3.5 - 5.5 mmol/L LAB CHEMISTRY METHOD 01/09/2025 7:27 AM [facility] Chloride 106 96 - 110 mmol/L LAB CHEMISTRY METHOD 01/09/2025 7:27 AM [facility] CO2 28 21 - 32 mmol/L LAB CHEMISTRY METHOD 01/09/2025 7:27 AM EDT [facility] Anion Gap 5 3 - 11 LAB CHEMISTRY METHOD 01/09/2025 7:27 AM [facility] Glucose 84 70 - 100 mg/dL LAB CHEMISTRY METHOD 01/09/2025 7:27 AM [facility] BUN 5 5 - 25 mg/dL LAB CHEMISTRY METHOD 01/09/2025 7:27 AM [facility] Creatinine 0.56(L) 0.70 - 1.30 mg/dL LAB CHEMISTRY METHOD 01/09/2025 7:27 AM [facility] eGFR 128 >=60 mL/min/1. 73m2 LAB CHEMISTRY METHOD 01/09/2025 7:27 AM [facility] Comment:Calculation based on the Chronic Kidney Disease Epidemiology Collaboration (CKD-EPI) equation refit without adjustment for race. BUN/Creatinine Ratio 8.9 LAB CHEMISTRY METHOD 01/09/2025 7:27 AM [facility] Calcium 8.9 8.5 - 10.5 mg/dL LAB CHEMISTRY METHOD 01/09/2025 7:27 AM [facility] Blood Venous blood specimen / Unknown 01/09/2025 5:58 AM EDT 01/09/2025 6:36 AM EDT us Akhil Cintron MD LAB BLOOD ORDERABLES Final Resul t [facility] [address] [place] [address], documented in this encounter Visit Diagnoses Diagnosis Hypo-osmolality and hyponatremia documented in this encounter Care Teams Rehabilitation Caseworker Relationship Specialty Start Date End Date Akhil Cintron MD [address] [place] [address] Dr Marta [facility] [place] PCP - General Internal Medicine 07/04/24 documented as of this encounter
--- NOTE | 2025-02-18 07:49 | EEG_ITS ---
Roomed Performed: Neuro Lab 1st floor Reason:Seizure History:Allergic rhinitis, unspecified, Polydipsia, Benign prostatic hyperplasia with lower urinary tract symptoms, Unspecified urinary incontinence, Mild cognitive impairment, Cocaine abuse, Alcohol dependence, in remission, Altered mental status, unspecified, Cannabis abuse with intoxication, uncomplicated, Myopia of both eyes, Anxiety, Dementia, Schizo affective Schizophrenia-pt has first seizure 02/01 lat known seizure was 12/02/24- witnessed by staff, no description noted in history of event except for duration of 5 mins and altered state for over 24 hours- Keppra was started at that time- CT on 12/03 was reported unremarkable Medication: vesicare, trihexphenldyl, tamsulosin, risperidone, risperdal, rifaximin Technical Description Photic stimulation: Competed Hyperventilation: pt stopped performing task only 30 secs in to HV Behavioral state: pt was noted to be withdrawn, minimal conversation, directions repeated multiple times- pt was restless State of Consciousness: awake Skull defect: no Sedation: no Handedness: Right : Duration of study: 30 min Description: This is a 16 channel EEG with an EKG lead. Background EEG rhythm is about 10 hertz 5-50 microvolt posteriorly lower amplitude fast anteriorly. Some lead and technical artifacts are noted. Photic stimulation does not produce any significant driving. Hyperventilation was stopped after 30 seconds not revealing any significant abnormality. Cardiac lead did not reveal any significant abnormality either. No sharp wave spikes asymmetry or paroxysmal tendency noted. Impression: [facility]remarkable EEG[facility]
== END 2025-02-18 07:40 | disposition home or self-care (01) ==
LOC: HO.NEURO 07:39
PROVIDERS: Visit Provider Hospitalist
DX: G40.89 Other seizures (principal)
CPT/HCPCS: 95816

== ENCOUNTER → 2025-02-18 07:49 | Outpatient (BNV) | payer MEDICARE, MEDICAID, SELFPAY | PROVIDERS: Visit Provider Psychiatry & Neurology Neurology | DX: R56.9 Unspecified convulsions (principal) | CPT/HCPCS: 95816 ==